=== PATIENT | female | born 1955 | race Caucasian/White ===

== ENCOUNTER 2019-12-24 08:26 | Emergency (ER) | payer OTHER, SELFPAY ==
[2019-12-24 08:42] VITALS: BP 123/74; PULSE 64; RESP 18; TEMP 36.4; O2SAT 99
--- NOTE | 2019-12-24 08:56 | ED.WEAKNESS ---
HPI - Weakness General Chief complaint: Weakness Stated complaint: Ambulance Source: patient Mode of arrival: EMS Limitations: no limitations History of Present Illness HPI Narrative: Pt has been feeling weaker over the last few days. She has been having 2 loose BM's per day. She has no nausea, no pain, no SOB or other complaints. MD Complaint: generalized weakness Duration: constant Location: generalized Migration: none Severity: mild Relieving factors: none Exacerbating factors: none Associated symptoms: denies other symptoms Related Data Home Medications Medication Instructions Recorded Confirmed aspirin 81 mg PO DAILY 12/24/19 12/24/19 hydrochlorothiazide 25 mg PO DAILY 12/24/19 12/24/19 pantoprazole 40 mg PO DAILY 12/24/19 12/24/19 sertraline 100 mg PO DAILY 12/24/19 12/24/19 simvastatin 20 mg PO DAILY 12/24/19 12/24/19 tramadol 50 mg PO DAILY 12/24/19 12/24/19 Allergies Allergy/AdvReac Type Severity Reaction Status Date / Time nitrofurantoin Allergy Unknown Verified 12/24/19 08:41 [From Macrodantin] Penicillins Allergy Unknown Verified 12/24/19 08:41 Review of Systems Constitutional: Constitutional: Reports chills, Denies fatigue, Denies fever(s) and Reports weakness Eyes: Eyes: Reports no additional eye complaints ENT: Reports system reviewed and no additional complaints, except as documented Cardiovascular: Cardiovascular: Reports no additional cardiovascular complaints Respiratory: Respiratory: Reports no additional respiratory complaints Gastrointestinal: Gastrointestinal: Reports no additional gastrointestinal complaints Musculoskeletal: Musculoskeletal: Reports no additional musculoskeletal complaints Integumentary/Breasts: Skin/Breast: Reports as per HPI Neurologic: Reports as per HPI Psychiatric: Psychiatric: Reports as per HPI Comments: pt does mention that she is a and worries alot Endocrine: Endocrine: Reports no additional endocrine complaints Hematologic/Lymphatic: Hematologic/Lymphatic: Reports no additional hematologic/lymphatic complaints Allergic/Immunologic: Allergic/Immunologic: Reports no additional allergic/immunologic complaints [facility] Past Medical History Medical History (Updated 12/24/19 @ 10:52 by Alecia Veloz MD) Depressed HTN (hypertension) Lipid disorder Surgical History Surgical History (Updated 12/24/19 @ 09:01 by Alecia Veloz MD) History of cholecystectomy Hx of eye surgery Social History Social History (Updated 12/24/19 @ 09:01 by Alecia Veloz MD) Alcohol intake: never Substance use: never Living arrangements: alone Exam Const: General: healthy appearing, no acute distress and alert Nutritional Appearance: well nourished and obese Orientation/consciousness: patient oriented x3 and No confusion Limitations: no limitations and No altered mental status HENMT: Head: normal to inspection Eyes: Conjunctivae: conjunctivae normal Pupils: Equal, round and reactive pupils present Neck: Neck: normal visual inspection Chest: Chest palpation & inspection: normal inspection of the chest Resp: Effort & Inspection: normal respiratory effort Auscultation: clear to auscultation bilaterally Cardio: Rate: regular rate Rhythm: regular rhythm GI: GI Palp: Yes Soft to palpation, No Tenderness to palpation present (GI), No Guarding due to palpation present (GI), No Rigid due to palpation and No Rebound tenderness present Percussion: Yes normal to percussion Auscultation: normal bowel sounds : General: Yes no CVA tenderness Back/Spine/Pelvis: Back: no CVA tenderness Skin: General skin exam: normal color Rashes: no rashes Neuro: General: patient oriented x3 Extrem: General: normal to inspection Psych: Appearance: grossly normal Mental Status: mental status grossly normal Thought content: Yes Normal thought content present Course Vital Signs Vital signs: Vital Signs Temperature 36.
[2019-12-24] MEDS: SODIUM CHLORIDE 0.9% IV 1,000 ML 999 ML IV CONT (09:10)
[2019-12-24 09:11] LABS: Basophils Absolute Auto 0.07 K/mm3 (0.00-0.10); Basophils Percent Auto 1.5 % (0.0-1.0); Eosinophils Absolute Auto 0.23 K/mm3 (0.02-0.50); Hematocrit 39.2 % (35.0-49.0); Hemoglobin 13.5 g/dL (12.0-15.0); Immature Granulocyte Absolute 0.01 K/mm3 (0.00-0.00); Immature Granulocyte Percent A 0.2 % (0.0-0.0); Lymphocytes Percent Auto 28.3 % (18.0-42.0); Mean Corpuscular HGB Conc 34.4 g/dL (32.0-36.0); Mean Corpuscular Hemoglobin 32.8 pg (27.0-31.0); Mean Corpuscular Volume 95.1 fL (78.0-102.0); Mean Platelet Volume 9.2 fl (9.2-11.8); Monocytes Absolute Auto 0.53 K/mm3 (0.10-0.90); Monocytes Percent Auto 11.5 % (2.0-11.0); Neutrophils Absolute Auto 2.5 K/mm3 (1.7-7.2); Neutrophils Percent Auto 53.5 % (50.0-70.0); Platelet Count Result 307 K/mm3 (150-420); Red Blood Count 4.12 M/mm3 (4.20-5.40); Red Cell Distribution Width 11.6 % (11.6-14.4); White Blood Count 4.6 K/mm3 (4.8-10.8)
[2019-12-24 09:15] VITALS: BP 130/76; PULSE 60
[2019-12-24 09:18] VITALS: BP 110/67
[2019-12-24 09:25] LABS: Alanine Aminotransferase 32 U/L (14-59); Albumin Level 4.4 g/dL (3.4-5.0); Alkaline Phosphatase 79 U/L (46-116); Anion Gap 9 mmol/L (8-16); Aspartate Amino Transferase 39 U/L (15-37); Blood Urea Nitrogen 9 mg/dL (7-18); Calcium 9.7 mg/dL (8.5-10.1); Carbon Dioxide 31 mmol/L (21-32); Chloride 95 mmol/L (98-108); Estimated CRCL calculation 45 ml/min; Estimated Glomerular Filt Rate 50; Glucose 115 mg/dL (70-99); Lipase 135 U/L (73-393); Osmolality Calculated 279 mOsm/kg (285-295); Potassium 2.9 mmol/L (3.5-5.1); Sodium 135 mmol/L (136-145); Total Protein 8.6 g/dL (6.4-8.2)
[2019-12-24] MEDS: POTASSIUM CHLORIDE 20 MEQ TABLET 40 MEQ PO (09:37)
--- NOTE | 2019-12-24 09:39 | ECG_ITS ---
Measurements Intervals [place] Rate: 52 P: 12 RI: 140 QRS: -12 QRSD: 96 T: 148 QT: 445 QTc: 417 Interpretive Statements SINUS BRADYCARDIA BORDERLINE ST-T WAVE ABNORMALITY- DIFFUSE LEADS BASELINE ARTIFACT- I, II, III, AVR, AVL, AVF, V1-V6 BORDERLINE ECG Electronically Signed On 12-25-2019 6:58:02 CDT by Baltazar Ball D.O.
[2019-12-24 09:52] LABS: Magnesium 1.6 mg/dL (1.8-2.4)
[2019-12-24 09:55] VITALS: BP 124/78; PULSE 60; RESP 20; O2SAT 98
[2019-12-24 10:17] LABS: Add Urine Microscopic? YES; Appearance Urine Clear (Clear); Bilirubin Urine 1+ (Negative); Blood Urine Negative (Negative); Color Urine Yellow (Yellow); Glucose Urine UA Negative (Negative); Ketones Urine Negative (Negative); Leukocyte Esterase Ur 2+ LEU/UL (Negative); Nitrate Urine Negative (Negative); Protein Urine Negative (Negative); Specific Grav Ur 1.015 (1.010-1.020); Urobilinogen Urine 0.2 mg/dL (0.2-1.0); pH Urine 5.5 (5.0-8.0)
[2019-12-24 10:21] LABS: RBC Urine 0-2 /hpf (0-2)
[2019-12-24 10:22] LABS: Bacteria Urine 3+ /hpf; Squamous Epithelial Cell Urine Few /hpf (Few)
[2019-12-24] MEDS: MAGNESIUM OXIDE 400 MG TABLET PO (10:30)
[2019-12-24 10:53] VITALS: BP 128/70; PULSE 60; RESP 18; TEMP 36.6; O2SAT 98
== END 2019-12-24 11:05 | disposition home or self-care (01) ==
PROVIDERS: Emergency Provider Emergency Medicine
DX: E87.6 Hypokalemia (principal); E83.42 Hypomagnesemia; N39.0 Urinary tract infection, site not specified
CPT/HCPCS: 36415; 80053; 81001; 83690; 83735; 85025; 87086; 87088; 93005; 96360; 99283; A9270; J7030

== ENCOUNTER 2019-12-25 09:48 | Observation (INO) | payer OTHER, SELFPAY ==
[2019-12-25] VITALS (10 sets, daily range): BP systolic 106–124; BP diastolic 68–81; PULSE 55–88; RESP 16–18; TEMP 36.4–36.9; O2SAT 96–100; BMI 32.0
--- NOTE | ~2019-12-25 | CT_ITS ---
EXAMINATION: CT chest abdomen pelvis w con DATE: 12/25/2019 14:43 INDICATION: Nausea, diarrhea, dysphagia TECHNIQUE: Transaxial computed tomographic images of the chest, abdomen, and pelvis were obtained aft er the administration of 100 cc of Omnipaque 350 intravenous contrast. The dose-length product (DLP) was 851.13 mGy-cm. Automated exposure control and iterative reconstruction technique were employed. COMPARISON: None FINDINGS: CHEST CT: There is a 3 mm nodule in the superior segment of the left lower lobe. The lungs are free of acute op acities. There is no pleural effusion or pneumothorax. There is a small sliding hiatal hernia. A smal l amount of hyperattenuating material is present in the hernia. No pathologically enlarged thoracic l ymph nodes are identified. The heart size is normal. Calcified coronary artery atherosclerosis is not ed. There is severe spondylosis at T1-2 and T2-3. ABDOMEN/PELVIS CT: The gallbladder is surgically absent. There is mild enlargement of the common bile duct and central i ntrahepatic ducts which is likely due to post cholecystectomy state. The liver, spleen, pancreas, and adrenal glands are normal. Hypoattenuating lesions in the kidneys, measuring up to 6 mm on the right , are too small to characterize but likely represent cysts. No pathologically enlarged abdominal or p elvic lymph nodes are identified. There is no free intraperitoneal gas or evidence of bowel obstructi on. There is severe lumbar spondylosis. IMPRESSION: 1. Small sliding hiatal hernia with internal hyperattenuating material of unclear origin, possibly in gested material/medication. 2. No acute abnormality of the chest, abdomen, or pelvis. 3. 3 mm nodule of the left lower lobe. If the patient has no risk factors for malignancy, no further follow up is required. If there are risk factors for malignancy (i.e., history of smoking, asbestos or radiation exposure), consider followup CT in 12 months. Reviewed, dictated and finalized at location A. IMPRESSION: 1. Small sliding hiatal hernia with internal hyperattenuating material of uncle ar origin, possibly ingested material/medication. 2. No acute abnormality of the chest, abdomen, or pelvis. 3. 3 mm nodule of the left lower lobe. If the patient has no risk factors for m alignancy, no further follow up is required. If there are risk factors for mal ignancy (i.e., history of smoking, asbestos or radiation exposure), consider fo llowup CT in 12 months.
--- NOTE | 2019-12-25 10:18 | ED.WEAKNESS ---
HPI - Weakness General Chief complaint: Weakness Stated complaint: low potassium Time Seen by Provider: 12/25/19 10:18 Source: patient Mode of arrival: wheelchair Limitations: no limitations History of Present Illness HPI Narrative: 64-year-old woman comes in today complaining of generalized weakness which has been present for last week. Patient states that during that time she has also had watery stools approximately twice a day. She states that her potassium was found to be low yesterday and she does not feel any better today. She states he has nausea but no vomiting, chest pain, shortness breath, cough, sore throat, fever, blood in her stool, black stools, or abdominal pain. She denies any sick contacts, has city water, and has had no recent antibiotics other than those prescribed yesterday. MD Complaint: generalized weakness Onset (ago): week(s) (1) Duration: constant Location: generalized Migration: none Severity: severe Relieving factors: none Exacerbating factors: none Associated symptoms: nausea/vomiting Related Data Home Medications Medication Instructions Recorded Confirmed aspirin 81 mg PO DAILY 12/24/19 12/25/19 hydrochlorothiazide 25 mg PO DAILY 12/24/19 12/25/19 pantoprazole 40 mg PO DAILY 12/24/19 12/25/19 sertraline 100 mg PO DAILY 12/24/19 12/25/19 simvastatin 20 mg PO DAILY 12/24/19 12/25/19 tramadol 50 mg PO DAILY 12/24/19 12/25/19 Allergies Allergy/AdvReac Type Severity Reaction Status Date / Time nitrofurantoin Allergy Unknown Verified 12/24/19 08:41 [From Macrodantin] Penicillins Allergy Unknown Verified 12/24/19 08:41 Review of Systems Constitutional: Constitutional: Denies chills, Reports fatigue, Denies fever(s) and Reports weakness Eyes: Eyes: Denies change in vision and Denies photophobia ENT: Denies dysphagia, Denies nasal congestion and Denies sore throat Cardiovascular: Cardiovascular: Denies chest pain and Denies radiating jaw, neck or arm pain Respiratory: Respiratory: Denies cough and Denies wheezing Gastrointestinal: Gastrointestinal: Reports as per HPI, Denies abdominal pain, Reports diarrhea, Reports nausea and Denies vomiting Genitourinary: Genitourinary: Denies hematuria, Denies nocturia and Denies dysuria Musculoskeletal: Musculoskeletal: Denies arthralgias and Denies joint swelling Integumentary/Breasts: Skin/Breast: Denies pruritus, Denies erythema and Denies rash Neurologic: Denies vertigo, Denies dizziness and Denies syncope Hematologic/Lymphatic: Hematologic/Lymphatic: Denies easy bleeding and Denies easy bruising Allergic/Immunologic: Allergic/Immunologic: Denies lip swelling and Denies wheezing PMFSH Past Medical History Medical History Depressed HTN (hypertension) Lipid disorder Surgical History Surgical History History of appendectomy History of cholecystectomy Hx of eye surgery S/p bilateral carpal tunnel release Social History Social History Smoking status: Never smoker Alcohol intake: never Substance use: never Living arrangements: alone Exam Const: General: alert and ill appearing acutely ( mildly) Nutritional Appearance: obese Orientation/consciousness: patient oriented x3 Other: Mild acute distress, laconic HENMT: Head: normal to inspection Ears: external ears normal, TM's normal bilaterally and EAC's normal General nose exam: Normal nares present Face and sinus: normal facial exam Mouth: Yes moist mucous membranes Throat: posterior oropharynx normal Eyes: Conjunctivae: conjunctivae normal Pupils: Equal, round and reactive pupils present EOM: EOMs intact bilaterally Resp: Effort & Inspection: normal respiratory effort and not labored Auscultation: clear to auscultation bilaterally, no rales, no rhonchi and no wheezes Cardio: Rate: regular
--- NOTE | 2019-12-25 10:21 | ECG_ITS ---
Measurements Intervals [place] Rate: 58 P: 73 [place]: 156 QRS: -10 QRSD: 101 T: 267 QT: 436 QTc: 430 Interpretive Statements SINUS BRADYCARDIA DELAYED PRECORDIAL R/S TRANSITION BORDERLINE ST-T WAVE ABNORMALITY- DIFFUSE LEADS BORDERLINE ECG Electronically Signed On 12-25-2019 11:08:00 CDT by Baltazar Ball D.O.
--- NOTE | 2019-12-25 10:43 | PC.NURSE ---
Report given to Karmen Henriquez
[2019-12-25 10:51] LABS: Alanine Aminotransferase 28 U/L (14-59); Alkaline Phosphatase 69 U/L (46-116); Anion Gap 6 mmol/L (8-16); Aspartate Amino Transferase 35 U/L (15-37); Bilirubin,Total 0.7 mg/dL (0.00-1.00); Blood Urea Nitrogen 8 mg/dL (7-18); Calcium 9.1 mg/dL (8.5-10.1); Carbon Dioxide 30 mmol/L (21-32); Chloride 98 mmol/L (98-108); Estimated CRCL calculation 50 ml/min; Estimated Glomerular Filt Rate 58; Glucose 120 mg/dL (70-99); Osmolality Calculated 277 mOsm/kg (285-295); Potassium 3.1 mmol/L (3.5-5.1); Sodium 134 mmol/L (136-145); Total Protein 7.4 g/dL (6.4-8.2)
[2019-12-25 10:52] LABS: Magnesium 1.7 mg/dL (1.8-2.4); Phosphorus 2.2 mg/dL (2.6-4.7)
[2019-12-25 11:08] LABS: Creatine Kinase 400 U/L (26-192); Lactate Dehydrogenase 190 U/L (81-234); Troponin I < 0.02 ng/mL (0.00-0.056)
[2019-12-25] MEDS: SODIUM CHLORIDE 0.9% IV 1,000 ML 100 ML IV CONT (12:31)
[2019-12-25] MEDS: KCL 20 MEQ/SW 100 ML 100 ML 50 MEQ IVPB ×2 (12:31→16:30)
--- NOTE | 2019-12-25 13:00 | PM.IMHP ---
H&P: HPI History of Present Illness Date/Time: 12/25/19 13:00 Chief complaint: hypokalemia weakness Narrative: Eloise Martinez is a 64 year old female that presented to our ED today complaining of diarrhea and fatigue. Patient has a past medical history of hypertension, lipid disorder, depression. Patient also presented to the ED yesterday with complaints of weakness and 2 loose bowel movements. Patient also noted that she felt like her pills were stuck in her throat .she was also diagnosed with a urinary tract infection, hypokalemia, hypomagnesia. Patient was discharged home with potassium 20 mEq, magnesium 400 mg twice daily and Bactrim every 12 hours for 3 days. Patient returned today with complaints of weakness and diarrhea. Patient notes that for the last 2 days she has had multiple liquid stools with fatigue she also complains of a slight headache. Today in the ED patient potassium was 3.1 sodium 134 BUN 8, creatinine 0.97, glucose 120, magnesium 1.7, patient EKG sinus bradycardia with a heart rate of 58. Patient being admitted for, diarrhea, hypokalemia and hypomagnesia .The patient denies SOB, CP, palpitation, extremity numbness, lightheadedness, dizziness, constipation, chills, or fever. Review of Systems Review of Systems: All systems reviewed & are unremarkable except as noted in HPI and below (10 point system review) [facility] Past Medical History Medical History Depressed HTN (hypertension) Lipid disorder Surgical History Surgical History History of appendectomy History of cholecystectomy Hx of eye surgery S/p bilateral carpal tunnel release Social History Social History Smoking status: Never smoker Alcohol intake: never Substance use: never Living arrangements: alone Spiritual care concerns: No Meds Home Medications and Allergies Home Medications Medication Instructions Recorded Confirmed Type aspirin 81 mg PO DAILY 12/24/19 12/25/19 History hydrochlorothiazide 25 mg PO DAILY 12/24/19 12/25/19 History magnesium oxide 400 mg PO BID #10 tablet 12/24/19 12/25/19 Rx pantoprazole 40 mg PO DAILY 12/24/19 12/25/19 History potassium chloride 40 meq PO BID #10 tablet 12/24/19 12/25/19 Rx sertraline 100 mg PO DAILY 12/24/19 12/25/19 History simvastatin 20 mg PO DAILY 12/24/19 12/25/19 History sulfamethoxazole-trimethoprim 1 tablet PO Q12H #7 tablet 12/24/19 12/25/19 Rx [Bactrim DS] tramadol 50 mg PO DAILY 12/24/19 12/25/19 History Allergies Allergy/AdvReac Type Severity Reaction Status Date / Time nitrofurantoin Allergy Unknown Verified 12/24/19 08:41 [From Macrodantin] Penicillins Allergy Unknown Verified 12/24/19 08:41 Vital Signs Vital Signs - 24 hr 12/25/19 10:05 12/25/19 10:30 12/25/19 11:15 Temperature 97.9 F Pulse Rate 66 60 88 Respiratory Rate 18 Blood Pressure 115/69 114/81 Pulse Oximetry 96 97 12/25/19 11:44 Temperature 97.5 F L Pulse Rate 64 Respiratory Rate 16 Blood Pressure 106/71 Pulse Oximetry 100 Exam Narrative: Exam Narrative: GENERAL: Fatigued, in no apparent distress. HEAD: normocephalic, atraumatic. EYES: PERRL. Sclera clear/white. Vision is grossly intact. EARS: External ears normal, auditory canals clear and without drainage, TMs normal without perforation. Hearing grossly intact. NOSE: External nose normal with no obvious nasal discharge, nares without redness, no rhinorrhea. THROAT: Mucous membranes moist, posterior pharynx clear. NECK: Neck supple, non-tender without lymphadenopathy, masses or thyromegaly. CARDIOVASCULAR: Regular rate and rhythm without murmurs, gallops, or rubs. RESPIRATORY: Clear to auscultation. Breath sounds equal bilaterally. No wheezes, rales, or rhonchi. GASTROINTESTINAL: Abdomen soft, non-tender, nondistended. Bowel sounds are active. No hepato-spl
[2019-12-25] MEDS: MAGNESIUM OXIDE 400 MG TABLET PO (18:11)
[2019-12-25 19:19] LABS: Anion Gap 10 mmol/L (8-16); Blood Urea Nitrogen 7 mg/dL (7-18); Calcium 8.9 mg/dL (8.5-10.1); Carbon Dioxide 26 mmol/L (21-32); Chloride 97 mmol/L (98-108); Estimated CRCL calculation 47 ml/min; Estimated Glomerular Filt Rate 53; Glucose 100 mg/dL (70-99); Osmolality Calculated 274 mOsm/kg (285-295); Potassium 3.7 mmol/L (3.5-5.1); Sodium 133 mmol/L (136-145)
[2019-12-25] MEDS: POTASSIUM CHLORIDE 20 MEQ PACKET (FOR LIQUID) 40 MEQ PO (20:26)
[2019-12-26] VITALS (7 sets, daily range): BP systolic 110–115; BP diastolic 49–72; PULSE 56–84; RESP 18; TEMP 36.5–37.1; O2SAT 95–98
--- NOTE | 2019-12-26 00:30 | PC.NURSE ---
Iraida Limon RN informed slightly prolonged QT on Telemetry.
--- NOTE | 2019-12-26 01:00 | PC.NURSE ---
IV fluids Discontinued. IV site without signs of infection/inflammation. Denies pain or discomfort. No nausea. Requests door kept closed. Explained need to check on patient if she needs help. Door left closed per patient request.
--- NOTE | 2019-12-26 03:55 | PC.NURSE ---
States she feels unsteady at times and would like to continue to have nurse assist to ambulate. Ambulated to bathroom with steady gait and returned to bed. No loss of balance or weakness noted.
[2019-12-26 06:01] LABS: Basophils Absolute Auto 0.04 K/mm3 (0.00-0.10); Basophils Percent Auto 0.6 % (0.0-1.0); Eosinophils Absolute Auto 0.08 K/mm3 (0.02-0.50); Eosinophils Percent Auto 1.3 % (1.0-6.0); Hematocrit 35.3 % (35.0-49.0); Hemoglobin 11.9 g/dL (12.0-15.0); Immature Granulocyte Absolute 0.02 K/mm3 (0.00-0.00); Immature Granulocyte Percent A 0.3 % (0.0-0.0); Lymphocytes Absolute Auto 1.34 K/mm3 (1.10-4.50); Lymphocytes Percent Auto 21.3 % (18.0-42.0); Mean Corpuscular HGB Conc 33.7 g/dL (32.0-36.0); Mean Corpuscular Hemoglobin 32.2 pg (27.0-31.0); Mean Corpuscular Volume 95.4 fL (78.0-102.0); Mean Platelet Volume 8.8 fl (9.2-11.8); Monocytes Percent Auto 11.1 % (2.0-11.0); Neutrophils Absolute Auto 4.1 K/mm3 (1.7-7.2); Neutrophils Percent Auto 65.4 % (50.0-70.0); Platelet Count Result 254 K/mm3 (150-420); White Blood Count 6.3 K/mm3 (4.8-10.8)
[2019-12-26 06:18] LABS: Alanine Aminotransferase 25 U/L (14-59); Albumin Level 3.5 g/dL (3.4-5.0); Alkaline Phosphatase 62 U/L (46-116); Anion Gap 9 mmol/L (8-16); Aspartate Amino Transferase 31 U/L (15-37); Bilirubin,Total 0.6 mg/dL (0.00-1.00); Blood Urea Nitrogen 5 mg/dL (7-18); Calcium 8.9 mg/dL (8.5-10.1); Carbon Dioxide 25 mmol/L (21-32); Chloride 101 mmol/L (98-108); Estimated CRCL calculation 49 ml/min; Estimated Glomerular Filt Rate 55; Glucose 95 mg/dL (70-99); Magnesium 1.9 mg/dL (1.8-2.4); Osmolality Calculated 277 mOsm/kg (285-295); Potassium 3.7 mmol/L (3.5-5.1); Sodium 135 mmol/L (136-145); Total Protein 7.4 g/dL (6.4-8.2)
--- NOTE | 2019-12-26 07:40 | PC.NURSE ---
Not feeling well this am, very nauseated, no chest pain, no emesis at this time, potassium this am noted to be 3.7
--- NOTE | 2019-12-26 08:00 | PC.NURSE ---
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
[2019-12-26] MEDS: ONDANSETRON INJ 4 MG/2 ML VIAL IV PUSH (08:31)
--- NOTE | 2019-12-26 08:35 | PC.NURSE ---
zofran given for nausea
--- NOTE | 2019-12-26 09:00 | PC.NURSE ---
Nausea is less, would like to wait to take meds until later
--- NOTE | 2019-12-26 09:21 | PM.DS ---
DS: Admitting Diagnosis Admitting Diagnosis Admitting Diagnosis: hypokalemia weakness DS: Discharge Diagnosis Discharge Diagnosis (1) Weakness: Code(s): R53.1 - Weakness Status: Acute Assessment and Plan: Possibly secondary to diarrhea Will consult PT OT before discharge (2) UTI (urinary tract infection): Code(s): N39.0 - Urinary tract infection, site not specified Status: Acute Assessment and Plan: Yesterday patient with leukocytes and bacteria in urine Patient prescribed Bactrim twice daily for 3 days. She will continue Bactrim and patient has no growth on culture DS: Summary Time Spent with Patient Time attestation: Total time spent providing and/or coordinating discharge services: Exam Narrative: Exam Narrative: GENERAL: Fatigued, in no apparent distress. HEAD: normocephalic, atraumatic. EYES: PERRL. Sclera clear/white. Vision is grossly intact. EARS: External ears normal, auditory canals clear and without drainage, TMs normal without perforation. Hearing grossly intact. NOSE: External nose normal with no obvious nasal discharge, nares without redness, no rhinorrhea. THROAT: Mucous membranes moist, posterior pharynx clear. NECK: Neck supple, non-tender without lymphadenopathy, masses or thyromegaly. CARDIOVASCULAR: Regular rate and rhythm without murmurs, gallops, or rubs. RESPIRATORY: Clear to auscultation. Breath sounds equal bilaterally. No wheezes, rales, or rhonchi. GASTROINTESTINAL: Abdomen soft, non-tender, nondistended. Bowel sounds are active. No hepato-splenomegaly, or palpable masses. No guarding. SKIN: warm, intact with no suspicious lesions or rash, good texture and turgor. NEURO: awake, alert, and oriented to person, place and time. There were no obvious focal neurologic abnormalities. Steady gait EXTREMITIES: Normal range of motion. No edema. No calf tenderness. Negative Homans sign bilaterally. BACK: Nontender without deformity or crepitance. No flank tenderness. DS: Data Data Completed and Pending Labs on day of discharge: Labs from last 24 hours 12/26/19 12/26/19 12/25/19 05:55 05:55 19:05 WBC 6.3 RBC 3.70 L Hgb 11.9 L Hct 35.3 MCV 95.4 MCH 32.2 H MCHC 33.7 RDW 12.0 Plt Count 254 MPV 8.8 L Immature Gran % (Auto) 0.3 H Neut % (Auto) 65.4 Lymph % (Auto) 21.3 [place] % (Auto) 11.1 H Eos % (Auto) 1.3 Baso % (Auto) 0.6 Lymph # (Auto) 1.34 [place] # (Auto) 0.70 Eos # (Auto) 0.08 Baso # (Auto) 0.04 Abs Immat Gran (auto) 0.02 H Absolute Neuts (auto) 4.1 Absolute Nucleated RBC 0.00 Nucleated RBC % 0.0 Sodium 135 L 133 L Potassium 3.7 3.7 Chloride 101 97 L Carbon Dioxide 25 26 Anion Gap 9 10 BUN 5 L 7 Creatinine 1.01 1.04 H Estim Creat Clear Calc 49 47 Estimated GFR 55 L 53 L Glucose 95 100 H Calculated Osmolality 277 L 274 L Calcium 8.9 8.9 Phosphorus Magnesium 1.9 Total Bilirubin 0.6 AST 31 ALT 25 Alkaline Phosphatase 62 Lactate Dehydrogenase Total Creatine Kinase Troponin I Total Protein 7.4 Albumin 3.5 12/25/19 12/25/19 12/25/19 10:30 10:30 10:30 WBC RBC Hgb Hct MCV MCH MCHC RDW Plt Count MPV Immature Gran % (Auto) Neut % (Auto) Lymph % (Auto) [place] % (Auto) Eos % (Auto) Baso % (Auto) Lymph # (Auto) [place] # (Auto) Eos # (Auto) Baso # (Auto) Abs Immat Gran (auto) Absolute Neuts (auto) Absolute Nucleated RBC Nucleated RBC % Sodium 134 L Potassium 3.1 L Chloride 98 Carbon Dioxide 30 Anion Gap 6 L BUN 8 Creatinine 0.97 Estim Creat Clear Calc 50 Estimated GFR 58 L Glucose 120 H Calculated Osmolality 277 L Calcium 9.1 Phosphorus 2.2 L Magnesium 1.7 L Total Bilirubin 0.7 AST 35 ALT 28 Alkaline Phosphatase 69 Lactate Dehydrogenase 190 Total Creati
[2019-12-26] MEDS: SIMVASTATIN 10 MG TABLET 20 MG PO (09:37)
[2019-12-26] MEDS: hydroCHLOROthiazide 25 MG TABLET PO (09:37)
[2019-12-26] MEDS: POTASSIUM CHLORIDE 20 MEQ PACKET (FOR LIQUID) 40 MEQ PO (09:37)
[2019-12-26] MEDS: SERTRALINE HCL 50 MG TABLET 100 MG PO (09:37)
[2019-12-26] MEDS: MAGNESIUM OXIDE 400 MG TABLET PO (09:37)
[2019-12-26] MEDS: PANTOPRAZOLE 40 MG TABLET PO (09:37)
[2019-12-26] MEDS: traMADol HCL (*CRX) 50 MG TABLET PO (09:38)
[2019-12-26] MEDS: ASPIRIN 81 MG ENTERIC TABLET PO (09:38)
--- NOTE | 2019-12-26 09:53 | PC.NURSE ---
Medications to room, eggs warmed up, not sure if she can take them or eat, just nauseated, no emesis no diarrhea
--- NOTE | 2019-12-26 12:07 | PC.NURSE ---
Attempting to eat lunch, sitting up in bed, states wants to go home but just doesn't know, states she feels still bad today, no vomiting, no diarrhea
--- NOTE | 2019-12-26 13:54 | PC.NURSE ---
resin filterer disconnected, feeling better, nausea improved after eating lunch, no diarrhea, ride is here, patient getting dressed
--- NOTE | 2019-12-26 14:20 | PC.NURSE ---
Discharge instructions reviewed with patient, no questions at t his time, personal items returned to patient, discharge via wheel chair to home
--- NOTE | 2019-12-27 12:56 | PC.NURSE ---
Discharge call back complete. Pt has no questions or concerns.
== END 2019-12-26 14:20 | disposition home or self-care (01) ==
LOC: CHSED 11:15 → CHS2ND 11:15
PROVIDERS: Admitting Provider Emergency Medicine; Emergency Provider Emergency Medicine; Visit Provider Emergency Medicine
DX: E87.6 Hypokalemia (principal); N39.0 Urinary tract infection, site not specified; E83.42 Hypomagnesemia; R13.10 Dysphagia, unspecified; I10 Essential (primary) hypertension; F32.9 Major depressive disorder, single episode, unspecified; R91.1 Solitary pulmonary nodule
CPT/HCPCS: 36415; 71260; 74177; 80048; 80053; 82550; 83615; 83735; 84100; 84484; 85025; 93005; 96361; 96365; 96366; 96367; 96374; 97161; 97165; 99284; 99285; A9270; G0378; J1956; J2405; J3480; J7030; Q9965

== ENCOUNTER 2020-02-19 11:45 | Inpatient (IN) | payer OTHER, SELFPAY ==
--- NOTE | ~2020-02-19 | CT_ITS ---
EXAMINATION: CT abdomen pelvis w con DATE: 02/19/2020 14:21 INDICATION: Generalized abdominal pain TECHNIQUE: Computed tomography (CT) of the abdomen and pelvis was performed with 100 cc Omnipaque 350 intravenous contrast. Automated exposure control and iterative reconstruction technique were employe d. Exam dose: 478.26 mGy-cm total exam DLP. COMPARISON: 12/25/2019 CT chest abdomen pelvis FINDINGS: Examination is limited due to prominent motion. The lung bases are clear of consolidation. Heart size appears within normal limits. No pericardial or pleural effusion. Small sliding hiatal hernia. Status post cholecystectomy. The hepatic dome is not completely included in this examination. No obvious hepatic, splenic, pancrea tic or adrenal or renal mass lesion is evident on this limited examination with motion. No hydroureteronephrosis. The urinary bladder is unremarkable. Uterus and adnexal areas are unremarka ble. Normal caliber and atherosclerotic calcification of the abdominal aorta. No evidence of abdominal aor tic aneurysm or dissection. No intraperitoneal or retroperitoneal or pelvic mass lesion or adenopathy or ascites is evident. No bowel obstruction or intraperitoneal free air is detected. There is severe degenerative disc disease of the lumbar and lumbosacral spine, relatively sparing onl y L4-5. No suspicious osteolytic or osteoblastic lesions are noted. IMPRESSION: Limited examination due to prominent motion Small sliding hiatal hernia Status post cholecystectomy Reviewed, dictated and finalized at [facility] Reviewed, dictated and finalized at [facility]. 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
[2020-02-19 12:10] VITALS: BP 133/68; PULSE 76; RESP 12; TEMP 36.7; O2SAT 97
--- NOTE | 2020-02-19 12:25 | ECG_ITS ---
Measurements Intervals [place] Rate: 77 P: 3 [place]: 134 QRS: -17 QRSD: 102 T: 171 QT: 402 QTc: 456 Interpretive Statements SINUS RHYTHM VENTRICULAR BIGEMINY DELAYED PRECORDIAL R/S TRANSITION INFERIOR INFARCT, AGE INDETERMINATE BORDERLINE ST-T WAVE ABNORMALITY- ANTEROLAT/HIGH LAT LEADS BASELINE WANDER- I, II, III, AVR, AVL, AVF, V1-V6 ABNORMAL ECG Electronically Signed On 02-19-2020 13:07:12 APPLICATION ARCHITECT by Baltazar Ball D.O.
[2020-02-19 12:57] LABS: Basophils Absolute Auto 0.07 K/mm3 (0.00-0.10); Basophils Percent Auto 1.3 % (0.0-1.0); Eosinophils Absolute Auto 0.08 K/mm3 (0.02-0.50); Eosinophils Percent Auto 1.5 % (1.0-6.0); Hematocrit 40.9 % (35.0-49.0); Hemoglobin 13.8 g/dL (12.0-15.0); Immature Granulocyte Absolute 0.01 K/mm3 (0.00-0.00); Immature Granulocyte Percent A 0.2 % (0.0-0.0); Lymphocytes Absolute Auto 1.18 K/mm3 (1.10-4.50); Lymphocytes Percent Auto 22.2 % (18.0-42.0); Mean Corpuscular HGB Conc 33.7 g/dL (32.0-36.0); Mean Corpuscular Hemoglobin 32.4 pg (27.0-31.0); Mean Platelet Volume 10.9 fl (9.2-11.8); Monocytes Absolute Auto 0.48 K/mm3 (0.10-0.90); Neutrophils Absolute Auto 3.5 K/mm3 (1.7-7.2); Neutrophils Percent Auto 65.8 % (50.0-70.0); Platelet Count Result 244 K/mm3 (150-420); Red Blood Count 4.26 M/mm3 (4.20-5.40); Red Cell Distribution Width 13.3 % (11.6-14.4); White Blood Count 5.3 K/mm3 (4.8-10.8)
[2020-02-19] MEDS: ONDANSETRON INJ 4 MG/2 ML VIAL IV PUSH ×2 (13:11→18:50)
[2020-02-19] MEDS: SODIUM CHLORIDE 0.9% IV 1,000 ML 500 ML IV CONT (13:11)
[2020-02-19] MEDS: DICYCLOMINE HCL 10 MG CAPSULE 20 MG PO (13:20)
[2020-02-19 13:21] LABS: BNP 132 pg/mL (0-100)
[2020-02-19 13:27] LABS: Alanine Aminotransferase 28 U/L (14-59); Albumin Level 3.5 g/dL (3.4-5.0); Alkaline Phosphatase 59 U/L (46-116); Aspartate Amino Transferase 41 U/L (15-37); Bilirubin,Total 1.2 mg/dL (0.00-1.00); Blood Urea Nitrogen 10 mg/dL (7-18); Calcium 9.2 mg/dL (8.5-10.1); Carbon Dioxide 25 mmol/L (21-32); Estimated CRCL calculation 49 ml/min; Estimated Glomerular Filt Rate > 60; Glucose 109 mg/dL (70-99); Magnesium 1.8 mg/dL (1.8-2.4); Total Protein 7.2 g/dL (6.4-8.2)
[2020-02-19 13:39] LABS: Troponin I 13.1 ng/L (0.00-60.4)
[2020-02-19 13:42] LABS: Anion Gap 17 mmol/L (8-16); Chloride 98 mmol/L (98-108); Osmolality Calculated 290 mOsm/kg (285-295); Sodium 140 mmol/L (136-145)
[2020-02-19 13:43] LABS: Potassium 1.9 mmol/L (3.5-5.1)
[2020-02-19] MEDS: KCL 40 MEQ/0.9% SOD CHL 1,000 ML 250 ML IV CONT (14:20)
--- NOTE | 2020-02-19 14:21 | PC.NURSE ---
Rapid Response called by machines technician during CT scan. Tech states patient become unresponsive and had seizure like activity. When RN arrived to CT department, pt was alert but disoriented.
--- NOTE | 2020-02-19 14:25 | ECG_ITS ---
Measurements Intervals [place] Rate: 67 P: -16 MD: 144 QRS: -28 QRSD: 106 T: 186 QT: 431 QTc: 456 Interpretive Statements SINUS RHYTHM FREQUENT VENTRICULAR PREMATURE COMPLEXES DELAYED PRECORDIAL R/S TRANSITION INFERIOR INFARCT, AGE INDETERMINATE ST-T WAVE ABNORMALITY IN ANTEROLAT/HIGH LAT LEADS- CONSIDER ISCHEMIA BASELINE ARTIFACT- I, II, III, AVR, AVL, AVF, V1, V3-V6 ABNORMAL ECG Electronically Signed On 02-19-2020 14:30:20 FISH WORM GROWER by Baltazar Ball D.O.
--- NOTE | 2020-02-19 14:34 | PC.NURSE ---
ERP GAVE RN VERBAL ORDER TO INFUSE 40MEQ KCL IN 1000 ML NS AT AN INCREASED RATE OF 250 ML/HR.
--- NOTE | 2020-02-19 15:01 | PC.NURSE ---
PT WAS UNABLE TO TAKE PO POTASSIUM DUE TO VOMITING. ERP INFORMED.
--- NOTE | 2020-02-19 15:02 | PC.NURSE ---
RN REQUESTED INPATIENT ROOM WITH TELEMETRY FROM TRENTON BUSCH RN. ROOM 226 PROVIDED. REGISTRATION NOTIFIED.
--- NOTE | 2020-02-19 15:31 | PC.NURSE ---
TELEPHONE REPORT PROVIDED TO BARON FLEMING. PT TRANSFERRED TO ROOM 226 IN ST[facility]CH[facility] WITH ALL BELONGINGS BY CONRADO DAWN.
[2020-02-19 15:33] VITALS: BP 90/55; PULSE 69; RESP 12; O2SAT 98
[2020-02-19 15:53] VITALS: BP 108/58; PULSE 65; RESP 18; TEMP 36.1; O2SAT 99
[2020-02-19 16:13] VITALS: BMI 28.8
--- NOTE | 2020-02-19 17:06 | ED.ABDPAIN ---
HPI - Abdominal Pain General Chief Complaint: Nausea/Vomiting/Diarrhea Stated Complaint: Diarrhea,Nausea, Time Seen by Provider: 02/19/20 14:20 Source: patient and family Mode of arrival: ambulatory Limitations: other (fatigue, malaise, nausea) History of Present Illness HPI narrative: Mrs Martinez says she has been nauseated for the past several days. She has also had several loose stools. She did not realize she should stop her diuretic when she had diarrhea. She has been getting pretty weak. Related Data Home Medications Medication Instructions Recorded Confirmed aspirin 81 mg PO DAILY 12/24/19 02/19/20 hydrochlorothiazide 25 mg PO DAILY 12/24/19 02/19/20 pantoprazole 40 mg PO DAILY 12/24/19 02/19/20 sertraline 100 mg PO DAILY 12/24/19 02/19/20 simvastatin 20 mg PO DAILY 12/24/19 02/19/20 tramadol 50 mg PO DAILY 12/24/19 02/19/20 Allergies Allergy/AdvReac Type Severity Reaction Status Date / Time nitrofurantoin Allergy Unknown Verified 12/24/19 08:41 [From Macrodantin] Penicillins Allergy Unknown Verified 12/24/19 08:41 Review of Systems Constitutional: Constitutional: Reports fatigue and Reports weakness Eyes: Eyes: Reports no additional eye complaints ENT: Reports system reviewed and no additional complaints, except as documented Cardiovascular: Cardiovascular: Reports no additional cardiovascular complaints Respiratory: Respiratory: Reports no additional respiratory complaints Gastrointestinal: Gastrointestinal: Reports no additional gastrointestinal complaints Genitourinary: Genitourinary: Reports no additional female genitourinary complaints Musculoskeletal: Musculoskeletal: Reports no additional musculoskeletal complaints Integumentary/Breasts: Skin/Breast: Reports system reviewed and no additional complaints, except as docu Neurologic: Comments: near syncope at home Psychiatric: Psychiatric: Reports no additional psychiatric complaints Endocrine: Endocrine: Reports no additional endocrine complaints Hematologic/Lymphatic: Hematologic/Lymphatic: Reports no additional hematologic/lymphatic complaints Allergic/Immunologic: Allergic/Immunologic: Reports no additional allergic/immunologic complaints [facility] Past Medical History Medical History Depressed HTN (hypertension) Lipid disorder Surgical History Surgical History History of appendectomy History of cholecystectomy Hx of eye surgery S/p bilateral carpal tunnel release Family History Family History Father Muscular dystrophy Mother Leukemia Sibling Breast cancer Sibling Malignant neoplasm of prostate Social History Social History Smoking status: Never smoker Alcohol intake: former Substance use: never Gender identity (if verbalized by the patient): Female Spiritual care concerns: No Exam Narrative: Exam Narrative: Appears acutely ill Const: General: no acute distress HENMT: Head: normal to inspection Eyes: Conjunctivae: conjunctivae normal Neck: Neck: normal visual inspection Chest: Chest palpation & inspection: normal inspection of the chest Resp: Effort & Inspection: normal respiratory effort Auscultation: clear to auscultation bilaterally Cardio: Rate: regular rate Rhythm: regular rhythm GI: GI Palp: Yes Soft to palpation Auscultation: Hyperactive bowel sounds present Skin: General skin exam: normal color Neuro: General: patient oriented x3 Extrem: General: normal to inspection Psych: Appearance: grossly normal Mental Status: mental status grossly normal Thought content: Yes Normal thought content present Course Course Emergency Course: Labs and CT were reviewed with patient. We decided to admit her her to stabilize her potassium. Vital Signs Vital signs: Vital Signs T
[2020-02-19] MEDS: POTASSIUM CHLORIDE 20 MEQ PACKET (FOR LIQUID) (17:37)
[2020-02-19 20:25] VITALS: PULSE 58
[2020-02-19 20:30] VITALS: BP 104/62; PULSE 62; RESP 18; TEMP 35.9; O2SAT 97
[2020-02-19] MEDS: PANTOPRAZOLE SODIUM IV 40 MG VIAL IV PUSH (20:32)
[2020-02-19] MEDS: POTASSIUM CHLORIDE 20 MEQ TABLET 40 MEQ PO (21:21)
[2020-02-20] VITALS (7 sets, daily range): BP systolic 88–103; BP diastolic 41–60; PULSE 59–68; RESP 18–20; TEMP 36.3–37.1; O2SAT 97–100
[2020-02-20] MEDS: SODIUM CHLORIDE 0.9% IV 1,000 ML 150 ML IV CONT (01:54)
[2020-02-20] MEDS: POTASSIUM CHLORIDE 20 MEQ TABLET 40 MEQ PO ×2 (01:55→05:45)
[2020-02-20 02:17] LABS: Add Urine Microscopic? YES; Appearance Urine Clear (Clear); Bilirubin Urine 2+ (Negative); Blood Urine Negative (Negative); Color Urine Yellow (Yellow); Glucose Urine UA Negative (Negative); Ketones Urine 1+ (Negative); Leukocyte Esterase Ur Negative (Negative); Nitrate Urine Negative (Negative); Protein Urine Negative (Negative); Urobilinogen Urine 0.2 mg/dL (0.2-1.0); pH Urine 6.5 (5.0-8.0)
[2020-02-20 02:23] LABS: Bacteria Urine None seen /hpf; RBC Urine 0-2 /hpf (0-2); Squamous Epithelial Cell Urine None seen /hpf (Few); WBC Urine 0-3 /hpf (0-3)
[2020-02-20] MEDS: ONDANSETRON INJ 4 MG/2 ML VIAL IV PUSH ×3 (05:44→16:00)
--- NOTE | 2020-02-20 05:45 | PC.NURSE ---
Patient given zofran per order due to reports of nausea.
[2020-02-20 08:59] LABS: Anion Gap 18 mmol/L (8-16); Blood Urea Nitrogen 7 mg/dL (7-18); Calcium 8.8 mg/dL (8.5-10.1); Carbon Dioxide 21 mmol/L (21-32); Chloride 106 mmol/L (98-108); Estimated CRCL calculation 48 ml/min; Estimated Glomerular Filt Rate 58; Glucose 77 mg/dL (70-99); Magnesium 1.9 mg/dL (1.8-2.4); Osmolality Calculated 297 mOsm/kg (285-295); Potassium 3.3 mmol/L (3.5-5.1); Sodium 145 mmol/L (136-145)
--- NOTE | 2020-02-20 08:59 | PM.IMHP ---
H&P: HPI History of Present Illness Date/Time: 02/20/20 08:59 <OREN Peralta - Last Filed: 02/20/20 13:44> Chief complaint: hypokalemia <OREN Peralta - Last Filed: 02/20/20 13:44> Narrative: Eloise Martinez is a 64 year old female who comes into the hospital after having nausea vomiting and diarrhea for a few days. She denies any recent antibiotic use. Patient admits that she is very weak and that she does not feel well. She admits to getting lightheaded and dizzy once in a while. Currently she is only nauseated without vomiting but still has her loose stools. <OREN Peralta - Last Filed: 02/20/20 13:44> Review of Systems Constitutional: Constitutional: Reports no additional constitutional complaints, Denies fever(s) and Reports weakness <OREN Peralta - Last Filed: 02/20/20 13:44> Cardiovascular: Cardiovascular: Reports no additional cardiovascular complaints, Denies chest pain, Denies chest pain at rest and Denies chest pain with activity <OREN Peralta - Last Filed: 02/20/20 13:44> Respiratory: Respiratory: Reports no additional respiratory complaints, Denies dyspnea and Denies dyspnea on exertion <OREN Peralta - Last Filed: 02/20/20 13:44> Gastrointestinal: Gastrointestinal: Reports diarrhea, Reports nausea and Denies vomiting <OREN Peralta - Last Filed: 02/20/20 13:44> Musculoskeletal: Musculoskeletal: Reports muscle weakness <OREN Peralta - Last Filed: 02/20/20 13:44> Neurologic: Reports system reviewed and no additional complaints, except as documented, Denies confusion, Denies vertigo, Reports dizziness (On occasion) and Denies numbness <OREN Peralta - Last Filed: 02/20/20 13:44> PMFSH Past Medical History Medical History: Medical History (Updated 02/20/20 @ 13:39 by OREN Peralta) Depressed HTN (hypertension) Lipid disorder <OREN Peralta - Last Filed: 02/20/20 13:44> Surgical History Surgical History: Surgical History History of appendectomy History of cholecystectomy Hx of eye surgery S/p bilateral carpal tunnel release <OREN Peralta - Last Filed: 02/20/20 13:44> Family History Family History: Family History Father Muscular dystrophy Mother Leukemia Sibling Breast cancer Sibling Malignant neoplasm of prostate <OREN Peralta - Last Filed: 02/20/20 13:44> Social History Social History: Social History Smoking status: Never smoker Alcohol intake: former Substance use: never Gender identity (if verbalized by the patient): Female Spiritual care concerns: No <OREN Peralta - Last Filed: 02/20/20 13:44> Meds Home Medications and Allergies Home medications: Home Medications Medication Instructions Recorded Confirmed Type aspirin 81 mg PO DAILY 12/24/19 02/19/20 History hydrochlorothiazide 25 mg PO DAILY 12/24/19 02/19/20 History pantoprazole 40 mg PO DAILY 12/24/19 02/19/20 History sertraline 100 mg PO DAILY 12/24/19 02/19/20 History simvastatin 20 mg PO DAILY 12/24/19 02/19/20 History tramadol 50 mg PO DAILY 12/24/19 02/19/20 History ondansetron HCl [Zofran] 4 mg PO Q8H PRN #30 tablet 12/26/19 02/19/20 Rx <OREN Peralta - Last Filed: 02/20/20 13:44> Allergies/Adverse reactions: Allergies Allergy/AdvReac Type Severity Reaction Status Date / Time nitrofurantoin Allergy Unknown Verified 12/24/19 08:41 [From Macrodantin] Penicillins Allergy Unknown Verified 12/24/19 08:41 <OREN Peralta - Last Filed: 02/20/20 13:44> Vital Signs Vital Signs - 24 hr 02/19/20 12:10 02/19/20 15:33 02/19/20 15:53 Temperature 98.1 F 96.9 F L Pulse Rate 76 69 65 Respiratory Rate 12 12 18 Blood Pressure 133
[2020-02-20 09:07] LABS: Lactic Acid Reflex 0.9 mmol/L (0.4-2.0)
[2020-02-20] MEDS: PANTOPRAZOLE SODIUM IV 40 MG VIAL IV PUSH (09:29)
[2020-02-20] MEDS: SERTRALINE HCL 50 MG TABLET 100 MG PO (09:30)
[2020-02-20] MEDS: ENOXAPARIN 40 MG/0.4 ML SYRINGE SUB-Q (09:30)
[2020-02-20] MEDS: SIMVASTATIN 10 MG TABLET 20 MG PO (09:30)
[2020-02-20] MEDS: ACETAMINOPHEN 325 MG TABLET 650 MG PO (09:30)
[2020-02-20] MEDS: MAGNESIUM SULF 2 GM/WATER 50ML 2 GM/50 ML BAG IVPB (09:33)
[2020-02-20] MEDS: POTASSIUM CHLORIDE 20 MEQ PACKET (FOR LIQUID) 40 MEQ PO (09:34)
[2020-02-21] VITALS: BP 100/50; PULSE 54; PULSE 62; RESP 16; TEMP 36.4; O2SAT 99
--- NOTE | 2020-02-21 02:11 | PC.NURSE ---
Patient resting with head at foot of bed. Call light in reach.
[2020-02-21 03:38] VITALS: BP 118/65; PULSE 68; RESP 18; TEMP 36.4; O2SAT 95
--- NOTE | 2020-02-21 05:03 | PC.NURSE ---
Resting on side, respirations non labored, eyes closed, call light in reach of patient,
[2020-02-21] MEDS: ONDANSETRON INJ 4 MG/2 ML VIAL IV PUSH (05:41)
--- NOTE | 2020-02-21 05:49 | PC.NURSE ---
zofran given for nausea, no emesis, does spit in container but no emesis
[2020-02-21 05:59] LABS: Hematocrit 33.7 % (35.0-49.0); Hemoglobin 11.1 g/dL (12.0-15.0); Mean Corpuscular HGB Conc 32.9 g/dL (32.0-36.0); Mean Corpuscular Volume 100.3 fL (78.0-102.0); Mean Platelet Volume 11.2 fl (9.2-11.8); Platelet Count Result 202 K/mm3 (150-420); Red Blood Count 3.36 M/mm3 (4.20-5.40); Red Cell Distribution Width 14.1 % (11.6-14.4); White Blood Count 5.2 K/mm3 (4.8-10.8)
[2020-02-21 06:14] LABS: Anion Gap 14 mmol/L (8-16); Blood Urea Nitrogen 6 mg/dL (7-18); Calcium 8.4 mg/dL (8.5-10.1); Carbon Dioxide 25 mmol/L (21-32); Chloride 107 mmol/L (98-108); Estimated CRCL calculation 51 ml/min; Estimated Glomerular Filt Rate > 60; Glucose 68 mg/dL (70-99); Osmolality Calculated 297 mOsm/kg (285-295); Potassium 3.1 mmol/L (3.5-5.1); Sodium 146 mmol/L (136-145)
[2020-02-21 07:28] VITALS: BP 105/63; PULSE 80; RESP 16; TEMP 36.8; O2SAT 98
[2020-02-21 08:00] VITALS: PULSE 68
[2020-02-21] MEDS: SIMVASTATIN 10 MG TABLET 20 MG PO (09:04)
[2020-02-21] MEDS: SERTRALINE HCL 50 MG TABLET 100 MG PO (09:04)
[2020-02-21] MEDS: POTASSIUM CHLORIDE 20 MEQ TABLET 40 MEQ PO (09:04)
[2020-02-21] MEDS: PANTOPRAZOLE SODIUM IV 40 MG VIAL IV PUSH (09:05)
[2020-02-21] MEDS: ENOXAPARIN 40 MG/0.4 ML SYRINGE SUB-Q (09:05)
[2020-02-21 12:00] VITALS: BP 108/64; PULSE 68; RESP 16; TEMP 36.7; O2SAT 96
--- NOTE | 2020-02-21 12:03 | PM.DS ---
DS: Admitting Diagnosis Admitting Diagnosis Admitting Diagnosis: hypokalemia <ROEN Peralta - Last Filed: 02/21/20 12:30> DS: Discharge Diagnosis Discharge Diagnosis (1) Acute hypokalemia: Code(s): E87.6 - Hypokalemia <OREN Peralta - Last Filed: 02/21/20 12:30> Status: Acute <OREN Peralta - Last Filed: 02/21/20 12:30> Assessment and Plan: 02/20/2020 patient's potassium went from 1.9 to 3.3 this morning patient received additional 40 mEq potassium this morning, magnesium was low end of normal at 1.9 patient received 2 g magnesium this morning, will continue to monitor electrolytes, patient continues to be nauseated without vomiting but does have soft stools to diarrhea, hydrochlorothiazide on hold at this time 02/21/2020 Magnesium improved to 2 potassium down little to 3.1 will send home on 20 mEq potassium daily 400 mg Mag oxide daily, hold HCTZ until diarrhea is resolved, follow-up with primary care provider within 1 week <OREN Peralta - Last Filed: 02/21/20 12:30> (2) Gastroenteritis: Code(s): K52.9 - Noninfective gastroenteritis and colitis, unspecified <OREN Peralta - Last Filed: 02/21/20 12:30> Status: Acute <OREN Peralta - Last Filed: 02/21/20 12:30> Assessment and Plan: 02/20/2020 patient is receiving dicyclomine, IV fluid rehydration, taking p.o. fluids well, stool for O&P pending, patient is nauseated with no vomiting at this time. 02/21/2020 patient is taking p.o. fluids well, lab results pending for stool, nausea has improved but will add Zofran on discharge, patient tolerated broth this morning <OREN Peralta - Last Filed: 02/21/20 12:30> (3) Weakness: Code(s): R53.1 - Weakness <OREN Peralta - Last Filed: 02/21/20 12:30> Status: Acute <OREN Peralta - Last Filed: 02/21/20 12:30> Assessment and Plan: 02/20/2020 anticipate this resolving with rehydration and stabilization of electrolytes 02/21/2020 weakness has improved and anticipate this improving more upon discharge while patient continues to increase diet from full liquids to a regular diet <OREN Peralta - Last Filed: 02/21/20 12:30> (4) Diarrhea: Code(s): R19.7 - Diarrhea, unspecified <OREN Peralta - Last Filed: 02/21/20 12:30> Status: Acute <OREN Peralta - Last Filed: 02/21/20 12:30> Assessment and Plan: 02/20/2020 patient receiving dicyclomine, fluid rehydration, tolerating p.o. fluids well 02/21/2020 patient had her 1 time dose of dicyclomine from the ER, today patient has had no diarrhea, she is tolerating fluids well and is on a full liquid diet to continue this at home with Zofran for nausea and she may advance her diet as tolerated, patient have follow-up with primary care provider within a week <OREN Peralta - Last Filed: 02/21/20 12:30> DS: Summary Time Spent with Patient Time attestation: Total time spent providing and/or coordinating discharge services: < 30 min <OREN Peralta - Last Filed: 02/21/20 12:30> Exam Const: General: cooperative, no acute distress, alert and awake <OREN Peralta - Last Filed: 02/21/20 12:30> Nutritional Appearance: overweight <OREN Peralta - Last Filed: 02/21/20 12:30> Resp: Effort & Inspection: normal respiratory effort <OREN Peralta - Last Filed: 02/21/20 12:30> Auscultation: clear to auscultation bilaterally <OREN Peralta - Last Filed: 02/21/20 12:30> Cardio: Rate: regular rate <OREN Peralta - Last Filed: 02/21/20 12:30> Rhythm: regular rhythm <OREN Peralta - Last Filed: 02/21/20 12:30> Heart sounds: S1 normal heart sound present and S2 normal heart sound present <OREN Peralta - Last Filed: 02/21/20 12:30> GI: GI Palp: Yes Soft to palpation and No Tenderness to
--- NOTE | 2020-02-29 09:41 | PC.NURSE ---
Pt states she received and understood her discharge instructions. Pt also states Every doctor and nurse was wonderful! .
== END 2020-02-21 14:20 | disposition home or self-care (01) | DRG 641 ==
LOC: CHSED 11:47 → CHS2ND 15:36
PROVIDERS: Nurse Practitioner Family; Admitting Provider Emergency Medicine; Emergency Provider Emergency Medicine; Visit Provider Emergency Medicine
DX: E87.6 Hypokalemia (principal); K52.9 Noninfective gastroenteritis and colitis, unspecified; I10 Essential (primary) hypertension; F32.9 Major depressive disorder, single episode, unspecified; E83.42 Hypomagnesemia; R53.1 Weakness; Z90.49 Acquired absence of other specified parts of digestive tract
CPT/HCPCS: 36415; 74177; 80048; 80053; 81001; 83605; 83735; 83880; 84484; 85025; 85027; 87086; 87088; 87177; 87209; 87269; 87272; 93005; 96361; 96365; 96375; 99285; A9270; C9113; J1650; J2405; J3475; J7030; Q9965

== ENCOUNTER 2020-03-25 10:16 | Emergency (ER) | payer OTHER, SELFPAY ==
--- NOTE | ~2020-03-25 | CT_ITS ---
EXAMINATION: CT abdomen pelvis w con EXAM DATE: 03/25/2020 12:24 INDICATION: Mid abdominal pain with nausea and dry heaves. TECHNIQUE: Spiral CT of the abdomen and pelvis was performed following intravenous injection of 100 m L Omnipaque 350. Axial, coronal and sagittal images were reviewed. The dose-length product (DLP) fo r this examination was 380.49 mGy-cm. The exposure was tailored according to patient size (auto mA e xposure control), and iterative reconstruction (ASIR) was used as additional dose reduction technique . Comparison is made to prior examination from 02/19/2020. FINDINGS: The liver, spleen, adrenal glands and pancreas are unremarkable. There are cholecystectomy clips. Portal and splenic veins are patent. Kidneys enhance symmetrically. There is no hydronephr osis. The uterus is unremarkable. The bladder is unremarkable. There is no retroperitoneal or pe lvic lymphadenopathy. There is mild scattered arteriosclerotic disease. There are surgical changes consistent with appendectomy. The stomach and small bowel are unremarkab le. There is expected amount of colonic stool. No free intraperitoneal gas. The heart is normal in size. There are no pericardial or pleural effusions. The lung bases are unremarkable. Advanced lumbar disc disease. Moderate lumbar scoliosis. There are no osteoblastic or osteolytic lesions ident ified. IMPRESSION: No acute intra-abdominal findings. Reviewed, dictated and finalized at [facility]. 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
--- NOTE | 2020-03-25 10:26 | ED.ABDPAIN ---
HPI - Abdominal Pain General Chief Complaint: Abdominal Pain Stated Complaint: Ambulance Time Seen by Provider: 03/25/20 10:23 Source: patient, EMS and RN notes reviewed Mode of arrival: EMS Limitations: no limitations History of Present Illness HPI narrative: Patient states she has had abdominal pain over the last month. She has been here to the emergency room several times in the last month but has not mentioned the abdominal pain. She states it got much worse in last 2-3 days. Initially told the tech that she had lower abdominal pain, then told nurse she had left upper quadrant pain, then told me she epigastric pain. MD elicited complaint: abdominal pain Onset (ago): month(s) (1) Pain Consistency: intermittent Location: epigastric Severity: moderate Quality: cramping, aching and fullness Radiation: none Migration to: no migration Exacerbating factors: eating Relieving factors: nothing Associated symptoms: nausea Related Data Home Medications Medication Instructions Recorded Confirmed pantoprazole 40 mg PO DAILY 12/24/19 03/25/20 sertraline 100 mg PO DAILY 12/24/19 03/25/20 simvastatin 20 mg PO DAILY 12/24/19 03/25/20 aspirin 325 mg PO DAILY 03/25/20 03/25/20 Allergies Allergy/AdvReac Type Severity Reaction Status Date / Time nitrofurantoin Allergy Unknown Verified 12/24/19 08:41 [From Macrodantin] Penicillins Allergy Unknown Verified 12/24/19 08:41 Review of Systems Review of Systems: All systems reviewed & are unremarkable except as noted in HPI and below Constitutional: Constitutional: Denies chills and Denies fever(s) Gastrointestinal: Gastrointestinal: Denies constipation, Denies diarrhea and Denies vomiting Genitourinary: Genitourinary: Denies nocturia and Denies dysuria [facility] Past Medical History Medical History Depressed HTN (hypertension) Lipid disorder Surgical History Surgical History History of appendectomy History of cholecystectomy Hx of eye surgery S/p bilateral carpal tunnel release Family History Family History Father Muscular dystrophy Mother Leukemia Sibling Breast cancer Sibling Malignant neoplasm of prostate Social History Social History Smoking status: Never smoker Alcohol intake: former Substance use: never Gender identity (if verbalized by the patient): Female Spiritual care concerns: No Exam Const: General: healthy appearing and no acute distress Nutritional Appearance: well nourished and obese centrally obese Orientation/consciousness: patient oriented x3 HENMT: Head: normal to inspection Ears: external ears normal Mouth: Yes lip normal and Yes moist mucous membranes Eyes: Conjunctivae: conjunctivae normal Pupils: Equal, round and reactive pupils present EOM: EOMs intact bilaterally Neck: Neck: normal visual inspection Resp: Effort & Inspection: normal respiratory effort Auscultation: clear to auscultation bilaterally Cardio: Rate: regular rate Rhythm: regular rhythm GI: Inspection: normal to inspection GI Palp: Yes Soft to palpation, Yes Tenderness to palpation present (GI) (epigastric mild), Yes Guarding due to palpation present (GI) and No Rebound tenderness present Auscultation: normal bowel sounds : General: Yes no CVA tenderness Back/Spine/Pelvis: Cervical Spine: cervical ROM normal Thoracic/Lumbar Spine: thoraco-lumbar ROM normal Skin: General skin exam: normal color Rashes: no rashes Neuro: General: patient oriented x3, moves all extremities, no meningeal signs and no focal motor deficits Speech: normal speech Gait exam (Neuro): Normal gait present Extrem: General: normal to inspection and no clubbing, cyanosis or edema Psych: Appearance: grossly normal and well kempt Mental Status: mental status
[2020-03-25 10:28] VITALS: BP 112/77; PULSE 62; RESP 14; TEMP 36.8; O2SAT 100
[2020-03-25 10:46] LABS: Hematocrit 39.3 % (35.0-49.0); Hemoglobin 12.9 g/dL (12.0-15.0); Mean Corpuscular HGB Conc 32.8 g/dL (32.0-36.0); Mean Corpuscular Hemoglobin 32.9 pg (27.0-31.0); Mean Corpuscular Volume 100.3 fL (78.0-102.0); Mean Platelet Volume 10.9 fl (9.2-11.8); Platelet Count Result 197 K/mm3 (150-420); Red Blood Count 3.92 M/mm3 (4.20-5.40); Red Cell Distribution Width 12.9 % (11.6-14.4); White Blood Count 2.9 K/mm3 (4.8-10.8)
[2020-03-25 11:02] LABS: Alanine Aminotransferase 13 U/L (14-59); Albumin Level 3.1 g/dL (3.4-5.0); Alkaline Phosphatase 57 U/L (46-116); Anion Gap 14 mmol/L (8-16); Aspartate Amino Transferase 25 U/L (15-37); Bilirubin,Total 0.7 mg/dL (0.00-1.00); Blood Urea Nitrogen 4 mg/dL (7-18); Calcium 9.2 mg/dL (8.5-10.1); Carbon Dioxide 24 mmol/L (21-32); Chloride 102 mmol/L (98-108); Estimated CRCL calculation 38 ml/min; Estimated Glomerular Filt Rate 52; Glucose 95 mg/dL (70-99); Lipase 136 U/L (73-393); Osmolality Calculated 286 mOsm/kg (285-295); Sodium 140 mmol/L (136-145); Total Protein 6.4 g/dL (6.4-8.2)
[2020-03-25 11:10] LABS: Band Neutrophils Percent 0 % (0-6); CRP 0.2 mg/dL (0.0-0.9); Eosinophils Absolute Manual 0.08 K/mm3 (0.02-0.5); Eosinophils Percent Manual 3 % (1-6); Lymphocytes Absolute Manual 0.78 K/mm3 (1.1-4.5); Lymphocytes Percent Manual 27 % (18-44); Monocytes Percent Manual 7 % (3-9); Neutrophils Absolute Manual 1.82 K/mm3 (1.7-7.2); Neutrophils Percent Manual 63 % (46-73); Platelet Estimate Adequate (Adequate); Total Cells Counted 100
[2020-03-25 11:30] VITALS: BP 123/73; O2SAT 98
[2020-03-25 12:47] LABS: Add Urine Microscopic? YES; Appearance Urine Clear (Clear); Bilirubin Urine 2+ (Negative); Blood Urine Negative (Negative); Color Urine Yellow (Yellow); Glucose Urine UA Negative (Negative); Ketones Urine 1+ (Negative); Leukocyte Esterase Ur 1+ LEU/UL (Negative); Nitrate Urine Negative (Negative); Protein Urine Negative (Negative); Specific Grav Ur 1.015 (1.010-1.020)
[2020-03-25 12:52] LABS: Bacteria Urine Trace /hpf; RBC Urine 0-2 /hpf (0-2); Squamous Epithelial Cell Urine Rare /hpf (Few)
[2020-03-25 13:32] VITALS: BP 102/64; PULSE 76; RESP 16; O2SAT 100
== END 2020-03-25 13:34 | disposition home or self-care (01) ==
PROVIDERS: Emergency Provider Emergency Medicine
DX: E87.6 Hypokalemia (principal); N39.0 Urinary tract infection, site not specified; R10.84 Generalized abdominal pain
CPT/HCPCS: 36415; 74177; 80053; 81001; 83690; 85025; 86140; 87086; 87088; 99283; 99284; Q9965; Q9967

== ENCOUNTER 2020-04-03 13:35 | Observation (INO) | payer OTHER, SELFPAY ==
--- NOTE | 2020-04-03 13:56 | ECG_ITS ---
Measurements Intervals [place] Rate: 55 P: 21 KS: 140 QRS: -12 QRSD: 95 T: 205 QT: 437 QTc: 418 Interpretive Statements SINUS BRADYCARDIA DELAYED PRECORDIAL R/S TRANSITION ST-T WAVE ABNORMALITY IN HIGH LATERAL LEADS- CONSIDER ISCHEMIA ABNORMAL ECG Electronically Signed On 04-03-2020 14:13:54 [employer] by Baltazar Ball D.O.
--- NOTE | 2020-04-03 13:58 | ED.GENADULT ---
HPI - General Adult General Chief complaint: Weakness Stated complaint: weak and heavyness in chest Source: patient Mode of arrival: ambulatory Limitations: no limitations History of Present Illness HPI narrative: Eloise is a 64F with a PMH of hypokalemia, esophageal dysphagia, UTI, HTN, and depression that frequently that presented to the ED with multiple symptoms. Today she feels very weak, has some epigastric pain, nausea and a couple episodes of NBNB vomiting. Starting yesterday she also has some chest pressure on and off without any aggravating/alleviating factors. It is accompanied by some lightheadedness but no syncope. No diarrhea, constipation, CADENA, vision changes, myalgias, arhralgias, fevers or chills. Related Data Home Medications Medication Instructions Recorded Confirmed pantoprazole 40 mg PO DAILY 12/24/19 04/03/20 sertraline 100 mg PO DAILY 12/24/19 04/03/20 simvastatin 20 mg PO HS 12/24/19 04/03/20 aspirin 325 mg PO DAILY 03/25/20 04/03/20 dicyclomine 10 mg PO QID PRN 04/03/20 04/03/20 lisinopril 5 mg PO DAILY 04/03/20 04/03/20 potassium chloride 20 meq PO DAILY 04/03/20 04/03/20 tramadol 50 mg PO TID PRN 04/03/20 04/03/20 Allergies Allergy/AdvReac Type Severity Reaction Status Date / Time nitrofurantoin Allergy Unknown Verified 04/03/20 13:53 [From Macrodantin] Penicillins Allergy Unknown Verified 04/03/20 13:53 Review of Systems Constitutional: Constitutional: Reports no additional constitutional complaints Eyes: Eyes: Reports no additional eye complaints ENT: Reports system reviewed and no additional complaints, except as documented Cardiovascular: Cardiovascular: Reports as per HPI Respiratory: Respiratory: Denies dyspnea Gastrointestinal: Gastrointestinal: Reports as per HPI Genitourinary: Genitourinary: Reports no additional female genitourinary complaints Musculoskeletal: Musculoskeletal: Reports no additional musculoskeletal complaints Integumentary/Breasts: Skin/Breast: Reports system reviewed and no additional complaints, except as docu Neurologic: Reports system reviewed and no additional complaints, except as documented Psychiatric: Psychiatric: Reports no additional psychiatric complaints Endocrine: Endocrine: Reports no additional endocrine complaints Hematologic/Lymphatic: Hematologic/Lymphatic: Reports no additional hematologic/lymphatic complaints Allergic/Immunologic: Allergic/Immunologic: Reports no additional allergic/immunologic complaints [facility] Past Medical History Medical History Depressed HTN (hypertension) Lipid disorder Surgical History Surgical History History of appendectomy History of cholecystectomy Hx of eye surgery S/p bilateral carpal tunnel release Family History Family History Father Muscular dystrophy Mother Leukemia Sibling Breast cancer Sibling Malignant neoplasm of prostate Social History Social History Smoking status: Never smoker Alcohol intake: former Substance use: never Gender identity (if verbalized by the patient): Female Spiritual care concerns: No Exam Const: General: no acute distress and alert Orientation/consciousness: patient oriented x3 Limitations: No altered mental status HENMT: Head: normal to inspection Other: atraumatic Eyes: Conjunctivae: conjunctivae normal Pupils: Equal, round and reactive pupils present Neck: Neck: normal visual inspection Chest: Chest palpation & inspection: normal inspection of the chest Resp: Effort & Inspection: normal respiratory effort Auscultation: clear to auscultation bilaterally Cardio: Rate: regular rate Rhythm: regular rhythm GI: GI Palp: Yes Soft to palpation Other: mild TTP : General: Yes no CVA tenderness Back/
[2020-04-03 14:09] VITALS: BP 108/81; PULSE 72; RESP 20; TEMP 36.7; O2SAT 100
[2020-04-03 14:17] LABS: Basophils Absolute Auto 0.04 K/mm3 (0.00-0.10); Basophils Percent Auto 0.6 % (0.0-1.0); Eosinophils Absolute Auto 0.05 K/mm3 (0.02-0.50); Eosinophils Percent Auto 0.7 % (1.0-6.0); Hematocrit 35.4 % (35.0-49.0); Hemoglobin 12.2 g/dL (12.0-15.0); Immature Granulocyte Absolute 0.01 K/mm3 (0.00-0.00); Immature Granulocyte Percent A 0.1 % (0.0-0.0); Lymphocytes Absolute Auto 0.91 K/mm3 (1.10-4.50); Lymphocytes Percent Auto 13.3 % (18.0-42.0); Mean Corpuscular HGB Conc 34.5 g/dL (32.0-36.0); Mean Corpuscular Hemoglobin 33.2 pg (27.0-31.0); Mean Corpuscular Volume 96.5 fL (78.0-102.0); Mean Platelet Volume 11.1 fl (9.2-11.8); Monocytes Absolute Auto 0.66 K/mm3 (0.10-0.90); Monocytes Percent Auto 9.7 % (2.0-11.0); Neutrophils Absolute Auto 5.2 K/mm3 (1.7-7.2); Neutrophils Percent Auto 75.6 % (50.0-70.0); Platelet Count Result 187 K/mm3 (150-420); Red Blood Count 3.67 M/mm3 (4.20-5.40); Red Cell Distribution Width 12.9 % (11.6-14.4); White Blood Count 6.8 K/mm3 (4.8-10.8)
[2020-04-03] MEDS: ONDANSETRON HCL ODT 4 MG TABLET (14:30)
[2020-04-03 14:34] LABS: Alanine Aminotransferase 21 U/L (14-59); Albumin Level 2.9 g/dL (3.4-5.0); Alkaline Phosphatase 57 U/L (46-116); Anion Gap 17 mmol/L (8-16); Aspartate Amino Transferase 30 U/L (15-37); Bilirubin,Total 0.6 mg/dL (0.00-1.00); Blood Urea Nitrogen 5 mg/dL (7-18); Calcium 8.7 mg/dL (8.5-10.1); Carbon Dioxide 23 mmol/L (21-32); Chloride 97 mmol/L (98-108); Creatine Kinase 45 U/L (26-192); Estimated Glomerular Filt Rate 48; Glucose 76 mg/dL (70-99); Influenza Control Valid (Valid); Lipase 162 U/L (73-393); Magnesium 1.8 mg/dL (1.8-2.4); Osmolality Calculated 280 mOsm/kg (285-295); Potassium 2.6 mmol/L (3.5-5.1); Sodium 137 mmol/L (136-145); Total Protein 6.4 g/dL (6.4-8.2); Troponin I 7.7 ng/L (0.00-60.4)
[2020-04-03] MEDS: KCL 20 MEQ/SW 100 ML 100 ML 50 MEQ IVPB (14:57)
[2020-04-03 14:58] VITALS: PULSE 58; RESP 18; O2SAT 100
[2020-04-03 15:55] VITALS: PULSE 74; RESP 20; O2SAT 99
[2020-04-03 16:00] VITALS: BP 108/66; PULSE 60; PULSE 62; RESP 18; TEMP 36.6; O2SAT 100
[2020-04-03 16:10] VITALS: PULSE 75
--- NOTE | 2020-04-03 17:12 | ADMGEN ---
This patient, Eloise Martinez, was admitted to 2nd Floor Room 203-2. Patient/family oriented to hospital policies and general routines including ID bracelet, bed and alarms, visiting hours, pain management, procedures, bathroom and other care routines, personal items, smoking policy, room service/diet, and visiting hours. Information on how to activate the Rapid Response Team has been discussed. Patient/Family are encouraged to report perceived risks to care and to ask questions if they do not understand what they are told or what they should do. Voices no c/o of n/v @ this time. lungs clear. spo2 on ra 100%. only c/o is being cold and wanting warm blankets.
[2020-04-03 17:15] VITALS: BMI 26.4
[2020-04-03 19:25] LABS: Anion Gap 17 mmol/L (8-16); Blood Urea Nitrogen 6 mg/dL (7-18); Calcium 8.9 mg/dL (8.5-10.1); Carbon Dioxide 23 mmol/L (21-32); Chloride 95 mmol/L (98-108); Estimated CRCL calculation 41 ml/min; Estimated Glomerular Filt Rate 51; Glucose 97 mg/dL (70-99); Osmolality Calculated 277 mOsm/kg (285-295); Potassium 3.3 mmol/L (3.5-5.1); Sodium 135 mmol/L (136-145)
[2020-04-03 20:00] VITALS: PULSE 68
[2020-04-03] MEDS: ONDANSETRON INJ 4 MG/2 ML VIAL IV PUSH (20:45)
[2020-04-03] MEDS: SIMVASTATIN 10 MG TABLET 20 MG PO (21:57)
[2020-04-03] MEDS: PANTOPRAZOLE 40 MG TABLET PO (22:44)
--- NOTE | 2020-04-03 22:45 | PC.NURSE ---
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 Awaiting results.
[2020-04-04] VITALS (7 sets, daily range): BP systolic 100–115; BP diastolic 52–76; PULSE 49–91; RESP 16–18; TEMP 36.2–37.3; O2SAT 96–98
[2020-04-04 00:30] LABS: Add Urine Microscopic? YES; Appearance Urine Clear (Clear); Bilirubin Urine 2+ (Negative); Blood Urine Negative (Negative); Color Urine Yellow (Yellow); Glucose Urine UA Negative (Negative); Ketones Urine 3+ (Negative); Leukocyte Esterase Ur Trace (Negative); Nitrate Urine Negative (Negative); Protein Urine Negative (Negative); Urobilinogen Urine 0.2 mg/dL (0.2-1.0); pH Urine 6.5 (5.0-8.0)
[2020-04-04 00:37] LABS: Bacteria Urine 1+ /hpf; RBC Urine 0-2 /hpf (0-2); Squamous Epithelial Cell Urine None seen /hpf (Few)
[2020-04-04] MEDS: ONDANSETRON INJ 4 MG/2 ML VIAL IV PUSH ×3 (05:23→19:19)
[2020-04-04] MEDS: POTASSIUM CHLORIDE 20 MEQ PACKET (FOR LIQUID) 40 MEQ PO (09:53)
[2020-04-04] MEDS: ENOXAPARIN 40 MG/0.4 ML SYRINGE SUB-Q (09:54)
[2020-04-04] MEDS: ASPIRIN 325 MG ENTERIC TABLET PO (09:54)
[2020-04-04] MEDS: ACETAMINOPHEN 325 MG TABLET 650 MG PO (09:54)
[2020-04-04] MEDS: SERTRALINE HCL 50 MG TABLET 100 MG PO (09:54)
[2020-04-04 13:59] LABS: Potassium 3.9 mmol/L (3.5-5.1)
--- NOTE | 2020-04-04 14:23 | PM.IMHP ---
H&P: HPI History of Present Illness Date/Time: 04/04/20 14:23 Chief Complaint: weakness, nausea vomiting Narrative: Eloise Martinez is a 64 year old female who came to the ER because she has been feeling very weak with some epigastric pain and N/V x1. This started the day prior. She also complained of some chest pressure that was on and off throughout the day. Patient is also very weak in appearance. Patient also states that she does not feel like she is safe to go back home due to her weakness and family is concerned because she lives home alone. Review of Systems Constitutional: Constitutional: Reports no additional constitutional complaints and Reports fatigue Cardiovascular: Cardiovascular: Reports no additional cardiovascular complaints and Reports chest pain (Off and on as described in the HPI) Respiratory: Respiratory: Reports no additional respiratory complaints, Denies dyspnea and Denies dyspnea on exertion Gastrointestinal: Gastrointestinal: Reports no additional gastrointestinal complaints Genitourinary: Genitourinary: Reports no additional female genitourinary complaints Neurologic: Reports as per HPI PMFSH Past Medical History Medical History Depressed HTN (hypertension) Lipid disorder Surgical History Surgical History History of appendectomy History of cholecystectomy Hx of eye surgery S/p bilateral carpal tunnel release Family History Family History Father Muscular dystrophy Mother Leukemia Sibling Breast cancer Sibling Malignant neoplasm of prostate Social History Social History Smoking status: Never smoker Alcohol intake: never Substance use: never Gender identity (if verbalized by the patient): Female Sexual Orientation (if Verbalized by the Patient): Straight or Heterosexual Spiritual care concerns: No Meds Home Medications and Allergies Home Medications Medication Instructions Recorded Confirmed Type pantoprazole 40 mg PO DAILY 12/24/19 04/03/20 History sertraline 100 mg PO DAILY 12/24/19 04/03/20 History simvastatin 20 mg PO HS 12/24/19 04/03/20 History aspirin 325 mg PO DAILY 03/25/20 04/03/20 History levofloxacin 500 mg PO DAILY #7 tablet 03/25/20 04/03/20 Rx dicyclomine 10 mg PO QID PRN 04/03/20 04/03/20 History lisinopril 5 mg PO DAILY 04/03/20 04/03/20 History potassium chloride 20 meq PO DAILY 04/03/20 04/03/20 History tramadol 50 mg PO TID PRN 04/03/20 04/03/20 History Allergies Allergy/AdvReac Type Severity Reaction Status Date / Time nitrofurantoin Allergy Unknown Verified 04/03/20 13:53 [From Macrodantin] Penicillins Allergy Unknown Verified 04/03/20 13:53 Vital Signs Vital Signs - 24 hr 04/03/20 14:58 04/03/20 15:55 04/03/20 16:00 Temperature 98 F Pulse Rate 58 L 74 62 Respiratory Rate 18 20 18 Blood Pressure 108/66 Pulse Oximetry 100 99 100 04/03/20 16:10 04/03/20 20:00 04/04/20 00:00 Temperature 97.2 F L Pulse Rate 75 68 64 Respiratory Rate 18 Blood Pressure 103/53 L Pulse Oximetry 97 04/04/20 04:00 04/04/20 08:00 04/04/20 12:00 Temperature 99.1 F Pulse Rate 64 91 55 L Respiratory Rate 18 Blood Pressure 100/52 L Pulse Oximetry 98 04/04/20 12:41 Temperature 98.5 F Pulse Rate 74 Respiratory Rate 18 Blood Pressure 115/76 Pulse Oximetry 96 Exam Const: General: cooperative, no acute distress, alert, awake, Physically active, ill appearing and uncomfortable Nutritional Appearance: average body habitus Resp: Effort & Inspection: normal respiratory effort Auscultation: clear to auscultation bilaterally Cardio: Rate: regular rate Heart sounds: S1 normal heart sound present and S2 normal heart sound present GI: GI Palp: Yes Soft to palpation and No Tenderness to
[2020-04-04 15:02] LABS: SARS-CoV-2 Ag Negative (Negative)
--- NOTE | 2020-04-04 17:33 | PC.NURSE ---
pt appears to be sleeping, chest movement evident, no s/sx of distress, rails up, call light in reach
[2020-04-04] MEDS: SIMVASTATIN 10 MG TABLET 20 MG PO (21:25)
[2020-04-04] MEDS: PANTOPRAZOLE 40 MG TABLET PO (21:25)
[2020-04-05] VITALS (7 sets, daily range): BP systolic 102–109; BP diastolic 51–61; PULSE 51–76; RESP 16–20; TEMP 35.8–37.1; O2SAT 96–100
--- NOTE | 2020-04-05 01:00 | PC.NURSE ---
Pt denies chest pain. Pt states has slight nausea.
[2020-04-05] MEDS: ONDANSETRON INJ 4 MG/2 ML VIAL IV PUSH ×2 (01:30→08:00)
--- NOTE | 2020-04-05 01:36 | PC.NURSE ---
Pt given zofran 4 mg IVP to relieve c/o nausea.
--- NOTE | 2020-04-05 02:01 | PC.NURSE ---
Sleeping, resp even. No signs of discomfort noted @ this time.
--- NOTE | 2020-04-05 03:02 | PC.NURSE ---
Sleeping, resp even. Telemetry continues. No sign of discomfort noted.
--- NOTE | 2020-04-05 05:21 | PC.NURSE ---
Continues to deny chest pain. Continues to deny need to void. Lab here for blood draw.
[2020-04-05 05:28] LABS: Hematocrit 33.5 % (35.0-49.0); Hemoglobin 11.4 g/dL (12.0-15.0); Mean Corpuscular Hemoglobin 32.8 pg (27.0-31.0); Mean Corpuscular Volume 96.3 fL (78.0-102.0); Mean Platelet Volume 10.6 fl (9.2-11.8); Platelet Count Result 201 K/mm3 (150-420); Red Blood Count 3.48 M/mm3 (4.20-5.40); Red Cell Distribution Width 12.8 % (11.6-14.4); White Blood Count 6.2 K/mm3 (4.8-10.8)
[2020-04-05 05:39] LABS: Anion Gap 14 mmol/L (8-16); Blood Urea Nitrogen 4 mg/dL (7-18); Calcium 8.5 mg/dL (8.5-10.1); Carbon Dioxide 23 mmol/L (21-32); Chloride 102 mmol/L (98-108); Estimated CRCL calculation 41 ml/min; Estimated Glomerular Filt Rate 51; Glucose 72 mg/dL (70-99); Osmolality Calculated 283 mOsm/kg (285-295); Potassium 3.3 mmol/L (3.5-5.1); Sodium 139 mmol/L (136-145)
[2020-04-05 07:41] LABS: Magnesium 1.7 mg/dL (1.8-2.4)
[2020-04-05] MEDS: MAGNESIUM SULF 4 GM/WATER100ML 4 GM/100 ML BAG IVPB (09:09)
[2020-04-05] MEDS: POTASSIUM CHLORIDE 20 MEQ PACKET (FOR LIQUID) 40 MEQ PO (09:10)
[2020-04-05] MEDS: ENOXAPARIN 40 MG/0.4 ML SYRINGE SUB-Q (09:10)
[2020-04-05] MEDS: ASPIRIN 325 MG ENTERIC TABLET PO (09:10)
[2020-04-05] MEDS: SERTRALINE HCL 50 MG TABLET 100 MG PO (09:11)
[2020-04-05] MEDS: ACETAMINOPHEN 325 MG TABLET 650 MG PO (09:11)
--- NOTE | 2020-04-05 14:21 | PM.DS ---
DS: Admitting Diagnosis Admitting Diagnosis Admitting Diagnosis: hypokalemia urinary tract infection nausea vomiting DS: Discharge Diagnosis Discharge Diagnosis (1) Acute hypokalemia: Code(s): E87.6 - Hypokalemia Status: Acute Assessment and Plan: 04/04/2020 initial potassium was 2.6 with an EKG report of sinus bradycardia, troponin was 7.7 on a new scale that ranges between 0-60.4 mcg per L as being normal, potassium was replaced with IV and p.o. supplements increasing the potassium to 3.3 subsequently replaced with an additional 40 mEq potassium today bringing potassium to a normal 3.9. 04/05/2020 potassium of 3.3 this morning I checked magnesium which was 1.7 supplemented with 40 mEq potassium and 4 g of magnesium patient to get her levels recheck at follow-up with her primary care provider after discharge (2) Weakness: Code(s): R53.1 - Weakness Status: Acute Assessment and Plan: 04/04/2020 Will have physical therapy to discharge evaluation and from the perspective of physical therapy patient would be able to go home, however patient states she does not feel like she will be safe at home and I believe family members stated the same, so as of now case coordination will be looking for placement for this patient 04/05/2020 with a generalized weakness patient accepted being placed in a usp where she will be able to have more assistance with daily living activities (3) UTI (urinary tract infection): Qualifiers: Hematuria presence: without hematuria Urinary tract infection type: site unspecified Qualified Code(s): N39.0 - Urinary tract infection, site not specified Code(s): N39.0 - Urinary tract infection, site not specified Status: Acute Assessment and Plan: 04/04/2020 UA shows minimal criteria for UTI such as trace leukocyte esterase, 4-6 white blood cells, 1+ bacteria, forced urine culture ordered, started patient on Rocephin. 04/05/2020 urine culture still pending will send patient home on a 3 day course of Keflex patient is to follow-up with primary care provider within a week DS: Summary Hospital Course Hospital Course: Hypokalemia has been resolved along with her magnesium levels patient remains a little nauseated and will be given an order of Compazine at discharge UTI was being covered with Rocephin and will continue treatment with Keflex for 3 day period a discharge Time Spent with Patient Time attestation: Total time spent providing and/or coordinating discharge services: > 60 minutes: time includes coordinating care with team primary care physician, accepting facility, transportation. Exam Const: General: cooperative, no acute distress, alert, awake and Physically active Nutritional Appearance: average body habitus Resp: Effort & Inspection: normal respiratory effort Auscultation: clear to auscultation bilaterally Cardio: Rate: regular rate Heart sounds: S1 normal heart sound present and S2 normal heart sound present GI: GI Palp: Yes Soft to palpation and No Tenderness to palpation present (GI) Auscultation: normal bowel sounds Neuro: General: oriented to person, oriented to place and oriented to time Cranial nerves: Yes CN's II-XII intact bilaterally (grossly intact) Speech: normal speech Extrem: General: no pedal edema DS: Data Data Completed and Pending Labs on day of discharge: Labs from last 24 hours 04/05/20 04/05/20 04/05/20 07:32 05:16 05:16 WBC 6.2 RBC 3.48 L Hgb 11.4 L Hct 33.5 L MCV 96.3 MCH 32.8 H MCHC 34.0 RDW 12.8 Plt Count 201 MPV 10.6 Sodium 139 Potassium 3.3 L Chloride 102 Carbon Dioxide 23 Anion Gap 14 BUN 4 L Creatinine 1.08 H Estim Creat Clear Calc 41 Estimated GFR 51 L Glucose 72 Calculated Osmolality 283 L Calcium 8.5 Magnesium 1.7 L SARS-CoV-2 Ag (Rapid) 04/04/20 14:17 WBC RBC Hgb Hct MCV MCH MCHC RDW Plt Count MPV
[2020-04-05] MEDS: PROCHLORPERAZINE EDISYLATE 10 MG/2 ML VIAL IV PUSH (14:32)
--- NOTE | 2020-04-05 14:57 | PC.NURSE ---
Report called to Daisy Oates
--- NOTE | 2020-04-05 16:59 | PC.NURSE ---
1620 [facility] notified of need for transfer to [facility] in [place], [place].
--- NOTE | 2020-04-05 17:00 | PC.NURSE ---
1630 Nurse in room to remove telemetry unit and IV. IV removed, pressure applied to area, no active bleeding observed, pressure dressing applied. Patient alert and talking. No c/o offered. [facility] here to transfer patient.
--- NOTE | 2020-04-05 17:02 | PC.NURSE ---
1640 [facility] left with patient and belongings for transfer to [facility] in [place], [place]. [facility] facility called and notified that patient had left and given an ETA.
--- NOTE | 2020-04-08 13:01 | PC.NURSE ---
[facility] states they received and understood the discharge instructions.
== END 2020-04-05 16:40 ==
LOC: CHSED 13:37 → CHS2ND 15:19
PROVIDERS: Emergency Medicine; Nurse Practitioner Family; Admitting Provider Family Medicine; Emergency Provider Family Medicine; Visit Provider Family Medicine
DX: E87.6 Hypokalemia (principal); N39.0 Urinary tract infection, site not specified; R11.2 Nausea with vomiting, unspecified; I10 Essential (primary) hypertension; R13.19 Other dysphagia; R07.89 Other chest pain; F32.9 Major depressive disorder, single episode, unspecified; Z90.49 Acquired absence of other specified parts of digestive tract; Z20.822 Contact with and (suspected) exposure to COVID-19; Z80.3 Family history of malignant neoplasm of breast; Z80.6 Family history of leukemia; Z80.42 Family history of malignant neoplasm of prostate
CPT/HCPCS: 36415; 80048; 80053; 81001; 82550; 83690; 83735; 84132; 84484; 85025; 85027; 87086; 87426; 87804; 93005; 96365; 96367; 96372; 96375; 96376; 97161; 99285; A9270; C9803; G0378; J0696; J0780; J1650; J2405; J3475; J3480

== ENCOUNTER 2020-12-05 07:47 | Outpatient (CLI) | payer MEDICARE, OTHER, SELFPAY ==
--- NOTE | ~2020-12-05 | MM_ITS ---
EXAMINATION: MM screening aracelis BI w nathalia HISTORY: Screening mammogram TECHNIQUE: Craniocaudal and mediolateral oblique 3-D tomosynthesis images were obtained and synthetic 2-D images were generated. CAD analysis was submitted and interpreted. COMPARISON: 04/01/2018 bilateral digital screening mammogram BREAST PARENCHYMAL COMPOSITION: There are scattered areas of fibroglandular density. FINDINGS: Occasional benign calcifications. There is no evidence of suspicious mass, calcification, o r architectural distortion to suggest malignancy in either breast. There has been no suspicious inter miguel change. IMPRESSION: 1. No mammographic evidence of malignancy. 2. Recommend routine screening mammography in one year. BI-RADS Category 2: Benign finding(s). Reviewed, dictated and finalized at location A.
--- NOTE | ~2020-12-05 | DEXA_ITS ---
Bone Density Report Name: Eloise Martinez Age: 65 Sex: Female Ethnicity: White Date of : 1955 Indication: postmenopausal; screening for osteoporosis; Referring Provider: Tyree Landin Study: Bone densitometry was performed. Exam Date: December 05, 2020 Accession number: [id number] Bone Density: Region BMD T-score Z-score Classification AP Spine(L1, L4) 1.035 0.0 1.7 Normal Femoral Neck (Left) 0.729 -1.1 0.4 Osteopenia Total Hip (Left) 0.897 -0.4 0.9 Normal Femoral Neck (Right) 0.700 -1.3 0.2 Osteopenia Total Hip (Right) 0.821 -1.0 0.2 Normal Femoral Neck Mean 0.714 -1.2 0.3 Osteopenia Total Hip Mean 0.859 -0.7 0.5 Normal World Health Organization criteria for BMD impression classify patients as: Normal (T-score at or above -1.0), Osteopenia (T-score between -1.0 and -2.5), or Osteoporosis (T-score at or below -2.5). Clinical Information Provided by Patient: Has used the following medications: Calcium Patient maximum height was 62 No regular weight bearing exercise Drinks caffeinated beverages Onset of menses at age 13 Number of children 0 Impression: The patient has low bone mass, based on the Right Femoral Neck T-score. Discussion: BONE DENSITY IS LOW AT ONE OR MORE SKELETAL SITES. This patient's lowest T-score is low at one or more skeletal sites. It meets the World Health Organization's (WHO) criteria for ?low bone mass? (T-score between -1.0 and -2.5). The patient's 10-year risk of fracture as calculated by FRAX is less than the threshold where pharmacological therapy is recommended by the National Osteoporosis Foundation (NOF). However, all treatment decisions require clinical judgment and consideration of individual patient factors, including patient preferences, comorbidities, previous drug use, risk factors not captured in the FRAX model (e.g., frailty, falls, vitamin D deficiency, increased bone turnover, interval significant decline in bone density) and possible under or overestimation of fracture risk by FRAX. The patient should follow a healthful lifestyle (good nutrition with adequate calcium and vitamin D, and appropriate weight-bearing exercise). Follow-Up: Consider repeating this study in 2 to 3 years to reassess this patient's status, or sooner if there is some new clinical indication. Reported by: Dr. Chino Cullen on 12/05/2020 8:31:00 AM. Reviewed, dictated and finalized at location A. [facility]
== END 2020-12-05 07:48 | disposition home or self-care (01) ==
LOC: CHSIMG 07:51
PROVIDERS: PCP Internal Medicine; Visit Provider Internal Medicine
DX: Z12.31 Encounter for screening mammogram for malignant neoplasm of breast (principal); Z78.0 Asymptomatic menopausal state
CPT/HCPCS: 77063; 77067; 77080

== ENCOUNTER 2021-05-22 07:06 | Outpatient (CLI) | payer MEDICARE, SELFPAY ==
[2021-05-22 07:28] LABS: Add Urine Microscopic? YES; Appearance Urine Clear (Clear); Basophils Absolute Auto 0.08 K/mm3 (0.00-0.10); Basophils Percent Auto 1.7 % (0.0-1.0); Bilirubin Urine Negative (Negative); Blood Urine Negative (Negative); Color Urine Yellow (Yellow); Eosinophils Absolute Auto 0.35 K/mm3 (0.02-0.50); Eosinophils Percent Auto 7.4 % (1.0-6.0); Glucose Urine UA Negative (Negative); Hematocrit 36.7 % (35.0-42.0); Hemoglobin 11.9 g/dL (11.7-13.8); Immature Granulocyte Absolute 0.01 K/mm3 (0.00-0.00); Immature Granulocyte Percent A 0.2 % (0.0-0.0); Ketones Urine Negative (Negative); Leukocyte Esterase Ur 3+ (Negative); Lymphocytes Absolute Auto 2.06 K/mm3 (1.10-4.50); Lymphocytes Percent Auto 43.7 % (18.0-42.0); Mean Corpuscular HGB Conc 32.4 g/dL (32.0-36.0); Mean Corpuscular Hemoglobin 33.1 pg (27.0-31.0); Mean Corpuscular Volume 102.2 fL (78.0-102.0); Mean Platelet Volume 9.2 fl (9.2-11.8); Monocytes Percent Auto 10.6 % (2.0-11.0); Neutrophils Absolute Auto 1.7 K/mm3 (1.7-7.2); Neutrophils Percent Auto 36.4 % (50.0-70.0); Nitrate Urine Negative (Negative); Platelet Count Result 276 K/mm3 (150-420); Protein Urine Negative (Negative); Red Blood Count 3.59 M/mm3 (4.20-5.40); Red Cell Distribution Width 11.8 % (11.6-14.4); Specific Grav Ur 1.025 (1.010-1.020); Urobilinogen Urine 0.2 mg/dL (0.2-1.0); White Blood Count 4.7 K/mm3 (4.8-10.8)
[2021-05-22 07:38] LABS: Bacteria Urine 1+ /hpf; RBC Urine None seen /hpf (0-2); Squamous Epithelial Cell Urine Few /hpf (Few)
[2021-05-22 08:37] LABS: Alanine Aminotransferase 28 U/L (14-59); Albumin Level 3.7 g/dL (3.4-5.0); Alkaline Phosphatase 106 U/L (46-116); Anion Gap 12 mmol/L (8-16); Aspartate Amino Transferase 27 U/L (15-37); Bilirubin,Total 0.4 mg/dL (0.00-1.00); Blood Urea Nitrogen 15 mg/dL (7-18); Calcium 8.9 mg/dL (8.5-10.1); Carbon Dioxide 25 mmol/L (21-32); Chloride 107 mmol/L (98-108); Cholesterol 165 mg/dL (0-200); Estimated Glomerular Filt Rate 50; Glucose 95 mg/dL (70-99); HDL Direct 69 mg/dL (40-60); LDL Cholesterol Calculated 73 mg/dL (<130); Magnesium 2.1 mg/dL (1.8-2.4); Osmolality Calculated 298 mOsm/kg (285-295); Potassium 4.5 mmol/L (3.5-5.1); Sodium 144 mmol/L (136-145); Total Protein 6.9 g/dL (6.4-8.2); Triglycerides 114 mg/dL (0-150)
== END 2021-05-22 07:07 | disposition home or self-care (01) ==
LOC: CHSLAB 07:09
PROVIDERS: PCP Internal Medicine; Visit Provider Internal Medicine
DX: E87.6 Hypokalemia (principal); E78.5 Hyperlipidemia, unspecified; I10 Essential (primary) hypertension
CPT/HCPCS: 36415; 80053; 80061; 81001; 83735; 84443; 85025

== ENCOUNTER 2021-11-20 07:01 | Outpatient (CLI) | payer MEDICARE, SELFPAY ==
[2021-11-20 07:41] LABS: Alanine Aminotransferase 12 U/L (14-59); Albumin Level 3.8 g/dL (3.4-5.0); Alkaline Phosphatase 96 U/L (46-116); Anion Gap 9 mmol/L (8-16); Aspartate Amino Transferase 25 U/L (15-37); Bilirubin,Total 0.6 mg/dL (0.00-1.00); Blood Urea Nitrogen 15 mg/dL (7-18); Calcium 9.1 mg/dL (8.5-10.1); Carbon Dioxide 26 mmol/L (21-32); Chloride 105 mmol/L (98-108); Cholesterol 170 mg/dL (0-200); Estimated Glomerular Filt Rate 45; Glucose 107 mg/dL (70-99); HDL Direct 71 mg/dL (40-60); LDL Cholesterol Calculated 71 mg/dL (<130); Magnesium 2.2 mg/dL (1.8-2.4); Osmolality Calculated 290 mOsm/kg (285-295); Sodium 140 mmol/L (136-145); Total Protein 7.2 g/dL (6.4-8.2); Triglycerides 139 mg/dL (0-150)
[2021-11-25 09:55] LABS: Hemoglobin A1C 5.7 % (<5.7)
== END 2021-11-20 07:02 | disposition home or self-care (01) ==
LOC: CHSLAB 07:04
PROVIDERS: PCP Internal Medicine; Visit Provider Internal Medicine
DX: E78.5 Hyperlipidemia, unspecified (principal); I10 Essential (primary) hypertension; E83.42 Hypomagnesemia
CPT/HCPCS: 36415; 80053; 80061; 83036; 83735

== ENCOUNTER 2022-05-19 06:58 | Outpatient (CLI) | payer MEDICARE, SELFPAY ==
[2022-05-19 07:19] LABS: Appearance Urine Clear (Clear); Basophils Absolute Auto 0.09 K/mm3 (0.00-0.10); Basophils Percent Auto 1.8 % (0.0-1.0); Bilirubin Urine Negative (Negative); Blood Urine Negative (Negative); Color Urine Light Yellow (Yellow); Eosinophils Absolute Auto 0.24 K/mm3 (0.02-0.50); Eosinophils Percent Auto 4.8 % (1.0-6.0); Glucose Urine UA Negative (Negative); Hemoglobin 12.3 g/dL (11.7-13.8); Immature Granulocyte Absolute 0.01 K/mm3 (0.00-0.00); Immature Granulocyte Percent A 0.2 % (0.0-0.0); Ketones Urine Negative (Negative); Leukocyte Esterase Ur 1+ (Negative); Lymphocytes Absolute Auto 2.11 K/mm3 (1.10-4.50); Lymphocytes Percent Auto 42.5 % (18.0-42.0); Mean Corpuscular HGB Conc 32.4 g/dL (32.0-36.0); Mean Corpuscular Hemoglobin 33.2 pg (27.0-31.0); Mean Corpuscular Volume 102.7 fL (78.0-102.0); Mean Platelet Volume 9.5 fl (9.2-11.8); Monocytes Absolute Auto 0.47 K/mm3 (0.10-0.90); Monocytes Percent Auto 9.5 % (2.0-11.0); Neutrophils Percent Auto 41.2 % (50.0-70.0); Nitrate Urine Negative (Negative); Platelet Count Result 262 K/mm3 (150-420); Protein Urine Negative (Negative); Red Cell Distribution Width 11.9 % (11.6-14.4); Urobilinogen Urine 0.2 mg/dL (0.2-1.0)
[2022-05-19 07:29] LABS: Hemoglobin A1C 5.6 % (<5.7)
[2022-05-19 07:36] LABS: Add Urine Microscopic? YES; RBC Urine None seen /hpf (0-2)
[2022-05-19 07:37] LABS: Bacteria Urine Rare /hpf; Squamous Epithelial Cell Urine Occasional /hpf (Few); WBC Urine 0-3 /hpf (0-3)
[2022-05-19 08:14] LABS: Alanine Aminotransferase 38 U/L (14-59); Alkaline Phosphatase 94 U/L (46-116); Anion Gap 9 mmol/L (8-16); Aspartate Amino Transferase 35 U/L (15-37); Bilirubin,Total 0.7 mg/dL (0.00-1.00); Blood Urea Nitrogen 16 mg/dL (7-18); Calcium 9.1 mg/dL (8.5-10.1); Carbon Dioxide 27 mmol/L (21-32); Chloride 107 mmol/L (98-108); Cholesterol 184 mg/dL (0-200); Estimated Glomerular Filt Rate 46; Glucose 92 mg/dL (70-99); HDL Direct 79 mg/dL (40-60); LDL Cholesterol Calculated 81 mg/dL (<130); Magnesium 1.9 mg/dL (1.8-2.4); Osmolality Calculated 297 mOsm/kg (285-295); Potassium 4.5 mmol/L (3.5-5.1); Sodium 143 mmol/L (136-145); Thyroid Stimulating Hormone 2.06 uIU/mL (0.36-3.74); Total Protein 7.5 g/dL (6.4-8.2); Triglycerides 118 mg/dL (0-150)
== END 2022-05-19 06:59 | disposition home or self-care (01) ==
LOC: CHSLAB 07:00
PROVIDERS: PCP Internal Medicine; Visit Provider Internal Medicine
DX: I10 Essential (primary) hypertension (principal); N18.2 Chronic kidney disease, stage 2 (mild); R73.9 Hyperglycemia, unspecified
CPT/HCPCS: 36415; 80053; 80061; 81001; 83036; 83735; 84443; 85025

== ENCOUNTER 2022-05-28 07:47 | Outpatient (CLI) | payer MEDICARE, OTHER, SELFPAY ==
--- NOTE | ~2022-05-28 | MM_ITS ---
EXAMINATION: MM screening aracelis BI w nathalia HISTORY: Screening mammogram TECHNIQUE: Craniocaudal and mediolateral oblique 3-D tomosynthesis images were obtained and synthetic 2-D images were generated. CAD analysis was submitted and interpreted. COMPARISON: 12/05/2020, 04/01/2018 bilateral screening mammogram examinations BREAST PARENCHYMAL COMPOSITION: There are scattered areas of fibroglandular density. FINDINGS: There is no evidence of suspicious mass, calcification, or architectural distortion to sugg est malignancy in either breast. There has been no suspicious interval change. IMPRESSION: 1. No mammographic evidence of malignancy. 2. Recommend routine screening mammography in one year. BI-RADS Category 1: Negative Reviewed, dictated and finalized at location A.
== END 2022-05-28 07:48 | disposition home or self-care (01) ==
LOC: CHSIMG 07:49
PROVIDERS: PCP Internal Medicine; Visit Provider Internal Medicine
DX: Z12.31 Encounter for screening mammogram for malignant neoplasm of breast (principal)
CPT/HCPCS: 77063; 77067

== ENCOUNTER 2022-11-12 07:01 | Outpatient (CLI) | payer MEDICARE, SELFPAY ==
[2022-11-12 07:12] LABS: Hematocrit 36.8 % (35.0-42.0); Hemoglobin 12.1 g/dL (11.7-13.8); Mean Corpuscular Volume 101.9 fL (78.0-102.0); Red Blood Count 3.61 M/mm3 (4.20-5.40); White Blood Count 4.8 K/mm3 (4.8-10.8)
[2022-11-12 07:13] LABS: Basophils Absolute Auto 0.08 K/mm3 (0.00-0.10); Basophils Percent Auto 1.7 % (0.0-1.0); Eosinophils Percent Auto 6.3 % (1.0-6.0); Immature Granulocyte Absolute 0.01 K/mm3 (0.00-0.00); Immature Granulocyte Percent A 0.2 % (0.0-0.0); Lymphocytes Absolute Auto 1.97 K/mm3 (1.10-4.50); Lymphocytes Percent Auto 41.1 % (18.0-42.0); Mean Corpuscular HGB Conc 32.9 g/dL (32.0-36.0); Mean Corpuscular Hemoglobin 33.5 pg (27.0-31.0); Mean Platelet Volume 9.5 fl (9.2-11.8); Monocytes Absolute Auto 0.48 K/mm3 (0.10-0.90); Neutrophils Percent Auto 40.7 % (50.0-70.0); Platelet Count Result 248 K/mm3 (150-420); Red Cell Distribution Width 11.8 % (11.6-14.4)
[2022-11-12 07:42] LABS: Alanine Aminotransferase 34 U/L (14-59); Albumin Level 3.9 g/dL (3.4-5.0); Alkaline Phosphatase 82 U/L (46-116); Anion Gap 9 mmol/L (8-16); Aspartate Amino Transferase 28 U/L (15-37); Blood Urea Nitrogen 17 mg/dL (7-18); Calcium 9.2 mg/dL (8.5-10.1); Carbon Dioxide 25 mmol/L (21-32); Chloride 105 mmol/L (98-108); Cholesterol 185 mg/dL (0-200); Estimated Glomerular Filt Rate 46; Glucose 97 mg/dL (70-99); HDL Direct 74 mg/dL (40-60); LDL Cholesterol Calculated 84 mg/dL (<130); Osmolality Calculated 289 mOsm/kg (285-295); Potassium 4.7 mmol/L (3.5-5.1); Sodium 139 mmol/L (136-145); Total Protein 7.1 g/dL (6.4-8.2); Triglycerides 133 mg/dL (0-150)
[2022-11-16 12:19] LABS: Methylmalonic Acid 186 nmol/L (87-318)
== END 2022-11-12 07:02 | disposition home or self-care (01) ==
LOC: CHSLAB 07:03
PROVIDERS: PCP Internal Medicine; Visit Provider Internal Medicine
DX: E78.5 Hyperlipidemia, unspecified (principal); D75.89 Other specified diseases of blood and blood-forming organs
CPT/HCPCS: 36415; 80053; 80061; 83921; 85025

== ENCOUNTER 2023-05-14 07:05 | Outpatient (CLI) | payer MEDICARE, SELFPAY ==
[2023-05-14 07:24] LABS: Appearance Urine Clear (Clear); Basophils Percent Auto 1.9 % (0.0-1.0); Bilirubin Urine Negative (Negative); Blood Urine Negative (Negative); Color Urine Light Yellow (Yellow); Eosinophils Percent Auto 5.7 % (1.0-6.0); Glucose Urine UA Negative (Negative); Hematocrit 38.2 % (35.0-42.0); Immature Granulocyte Absolute 0.01 K/mm3 (0.00-0.00); Immature Granulocyte Percent A 0.2 % (0.0-0.0); Ketones Urine Negative (Negative); Leukocyte Esterase Ur 1+ (Negative); Lymphocytes Absolute Auto 2.15 K/mm3 (1.10-4.50); Lymphocytes Percent Auto 40.8 % (18.0-42.0); Mean Corpuscular HGB Conc 31.4 g/dL (32.0-36.0); Mean Corpuscular Hemoglobin 31.3 pg (27.0-31.0); Mean Corpuscular Volume 99.7 fL (78.0-102.0); Mean Platelet Volume 9.5 fl (9.2-11.8); Monocytes Absolute Auto 0.54 K/mm3 (0.10-0.90); Monocytes Percent Auto 10.2 % (2.0-11.0); Neutrophils Absolute Auto 2.2 K/mm3 (1.7-7.2); Neutrophils Percent Auto 41.2 % (50.0-70.0); Nitrate Urine Negative (Negative); Platelet Count Result 236 K/mm3 (150-420); Protein Urine Negative (Negative); Red Blood Count 3.83 M/mm3 (4.20-5.40); Red Cell Distribution Width 11.9 % (11.6-14.4); Urobilinogen Urine 0.2 mg/dL (0.2-1.0); White Blood Count 5.3 K/mm3 (4.8-10.8)
[2023-05-14 07:56] LABS: Add Urine Microscopic? YES; RBC Urine None seen /hpf (0-2); Squamous Epithelial Cell Urine Few /hpf (Few)
[2023-05-14 07:57] LABS: Bacteria Urine Trace /hpf
[2023-05-14 08:29] LABS: Alanine Aminotransferase 37 U/L (14-59); Alkaline Phosphatase 85 U/L (46-116); Anion Gap 8 mmol/L (8-16); Aspartate Amino Transferase 31 U/L (15-37); Bilirubin,Total 0.8 mg/dL (0.00-1.00); Blood Urea Nitrogen 17 mg/dL (7-18); Calcium 8.9 mg/dL (8.5-10.1); Carbon Dioxide 28 mmol/L (21-32); Chloride 105 mmol/L (98-108); Cholesterol 192 mg/dL (0-200); Estimated Glomerular Filt Rate 48; Glucose 92 mg/dL (70-99); HDL Direct 76 mg/dL (40-60); LDL Cholesterol Calculated 86 mg/dL (<130); Osmolality Calculated 293 mOsm/kg (285-295); Potassium 4.5 mmol/L (3.5-5.1); Sodium 141 mmol/L (136-145); Total Protein 7.1 g/dL (6.4-8.2); Triglycerides 151 mg/dL (0-150)
== END 2023-05-14 07:06 | disposition home or self-care (01) ==
LOC: CHSLAB 07:08
PROVIDERS: PCP Internal Medicine; Visit Provider Internal Medicine
DX: E78.5 Hyperlipidemia, unspecified (principal)
CPT/HCPCS: 36415; 80053; 80061; 81001; 84443; 85025

== ENCOUNTER 2023-05-25 07:19 | Outpatient (CLI) | payer MEDICARE, OTHER, SELFPAY ==
--- NOTE | ~2023-05-25 | DEXA_ITS ---
Bone Density Report Name: YAZMIN ANDERSON Age: 67 Sex: Female Ethnicity: White Date of : 1955 Indication: postmenopausal; screening for osteoporosis; height loss; Referring Provider: Tyree Landin Study: Bone densitometry was performed. Exam Date: May 25, 2023 Accession number: [id number] Bone Density: Region BMD T-score Z-score Classification AP Spine(L1, L4) 1.041 0.0 2.0 Normal Femoral Neck (Left) 0.729 -1.1 0.6 Osteopenia Total Hip (Left) 0.891 -0.4 0.9 Normal Femoral Neck (Right) 0.691 -1.4 0.2 Osteopenia Total Hip (Right) 0.842 -0.8 0.5 Normal Femoral Neck Mean 0.710 -1.3 0.4 Osteopenia Total Hip Mean 0.866 -0.6 0.7 Normal World Health Organization criteria for BMD impression classify patients as: Normal (T-score at or above -1.0), Osteopenia (T-score between -1.0 and -2.5), or Osteoporosis (T-score at or below -2.5). 10-year Fracture Risk(1): Major Osteoporotic Fracture 8.4% Hip Fracture 0.9% Reported Risk Factors: [place] (), Neck BMD=0.691, BMI=37.5 (1) FRAX(R) Version 3.08. Fracture probability calculated for an untreated patient. Fracture probability may be lower if the patient has received treatment. Clinical Information Provided by Patient: Has used the following medications: Vitamin D, multi Patient maximum height was 62 Menopause Age: 50 No regular weight bearing exercise Drinks caffeinated beverages Onset of menses at age 13 Number of children 0 Impression: The patient has low bone mass, based on the Right Femoral Neck T-score. Discussion: BONE DENSITY IS LOW AT ONE OR MORE SKELETAL SITES. This patient's lowest T-score is low at one or more skeletal sites. It meets the World Health Organization's (WHO) criteria for ?low bone mass? (T-score between -1.0 and -2.5). The patient's 10-year risk of fracture as calculated by FRAX is less than the threshold where pharmacological therapy is recommended by the National Osteoporosis Foundation (NOF). However, all treatment decisions require clinical judgment and consideration of individual patient factors, including patient preferences, comorbidities, previous drug use, risk factors not captured in the FRAX model (e.g., frailty, falls, vitamin D deficiency, increased bone turnover, interval significant decline in bone density) and possible under or overestimation of fracture risk by FRAX. The patient should follow a healthful lifestyle (good nutrition with adequate calcium and vitamin D, and appropriate weight-bearing exercise). Follow-Up: Consider repeating this study in 2 to 3 years to reassess this patient's status, or sooner if there is some new clinical indication. Reported by: Dr. Chino Cullen on 05/25/2023 7:50:00 AM.
== END 2023-05-25 07:20 | disposition home or self-care (01) ==
LOC: CHSIMG 07:21
PROVIDERS: PCP Internal Medicine; Visit Provider Internal Medicine
DX: Z78.0 Asymptomatic menopausal state (principal); M85.89 Other specified disorders of bone density and structure, multiple sites
CPT/HCPCS: 77080

== ENCOUNTER 2023-06-01 07:19 | Outpatient (CLI) | payer MEDICARE, OTHER, SELFPAY ==
--- NOTE | ~2023-06-01 | MM_ITS ---
EXAMINATION: MM screening aracelis BI w nathalia HISTORY: Screening TECHNIQUE: Craniocaudal and mediolateral oblique 3-D tomosynthesis images were obtained and synthetic 2-D images were generated. CAD analysis was submitted and interpreted. COMPARISON: Comparison to multiple prior studies sequentially, with oldest reviewed study dated 04/01. BREAST PARENCHYMAL COMPOSITION: There are scattered areas of fibroglandular density. FINDINGS: There is no evidence of suspicious mass, calcification, or architectural distortion to sugg est malignancy in either breast. There has been no suspicious interval change. IMPRESSION: 1. No mammographic evidence of malignancy. 2. Recommend routine screening mammography in one year. BI-RADS Category 1: Negative Reviewed, dictated and finalized at location A.
== END 2023-06-01 07:20 | disposition home or self-care (01) ==
LOC: CHSIMG 07:20
PROVIDERS: PCP Internal Medicine; Visit Provider Internal Medicine
DX: Z12.31 Encounter for screening mammogram for malignant neoplasm of breast (principal)
CPT/HCPCS: 77063; 77067

== ENCOUNTER 2023-11-19 07:12 | Outpatient (CLI) | payer MEDICARE, SELFPAY ==
[2023-11-19 07:27] LABS: Hematocrit 35.9 % (35.0-42.0); Hemoglobin 11.8 g/dL (11.7-13.8); Mean Corpuscular HGB Conc 32.9 g/dL (32-36); Mean Corpuscular Volume 100.3 fL (78.0-102.0); Mean Platelet Volume 9.7 fl (9.2-11.8); Platelet Count Result 231 K/mm3 (150-420); Red Blood Count 3.58 M/mm3 (4.20-5.40); Red Cell Distribution Width 11.9 % (11.6-14.4); White Blood Count 5.5 K/mm3 (4.8-10.8)
[2023-11-19 09:56] LABS: Alanine Aminotransferase 21 U/L (6-35); Albumin Level 4.1 g/dL (3.5-5.1); Alkaline Phosphatase 78 U/L (38-126); Anion Gap 10 mmol/L (4-12); Aspartate Amino Transferase 37 U/L (14-36); Bilirubin,Total 0.9 mg/dL (0.2-1.3); Calcium 9.6 mg/dL (8.4-10.2); Carbon Dioxide 23 mmol/L (22-30); Chloride 106 mmol/L (98-107); Cholesterol 181 mg/dL (0-200); Estimated Glomerular Filt Rate 50; Glucose 100 mg/dL (65-110); HDL Direct 74 mg/dL; LDL Cholesterol Calculated 68 mg/dL (<130); Potassium 4.4 mmol/L (3.4-5.0); Sodium 139 mmol/L (137-145); Triglycerides 195 mg/dL (<150)
[2023-11-19 15:04] LABS: Blood Urea Nitrogen 16 mg/dL (7-17); Osmolality Calculated 289 mOsm/kg (285-295)
== END 2023-11-19 07:13 | disposition home or self-care (01) ==
LOC: CHSLAB 07:14
PROVIDERS: PCP Internal Medicine; Visit Provider Internal Medicine
DX: I10 Essential (primary) hypertension (principal); E78.5 Hyperlipidemia, unspecified
CPT/HCPCS: 36415; 80053; 80061; 85027

== ENCOUNTER 2024-05-09 07:04 | Outpatient (CLI) | payer MEDICARE, SELFPAY ==
--- OUTSIDE RECORDS SUMMARY | 2024-05-09 07:09 | XMS_ITS ---
Author Organization [facility], [place] Address Unknown Allergies, Adverse Reactions, Alerts Substance Reaction Status Noted Date Resolved Date Penicillins active 04/05/2020 Nitrofurantoin active 04/05/2020 Macrodantin active 04/05/2020 Problems Problem Status Start Date End Date HYPOKALEMIA (Primary) (E87.6 - ICD-10-CM) ACTIVE 04/05/2020 MAJOR DEPRESSIVE DISORDER, S JANE EPISODE, UNSPECIFIED (F32.9 - ICD-10-CM) ACTIVE 04/05/2020 HYPERLIPIDEMIA, UNSPECIFIED (E78.5 - ICD-10-CM) ACTIVE 04/05/2020 GASTRO-ESOPHAGEAL REFLUX DIS EASE WITHOUT ESOPHAGITIS (K21.9 - ICD-10-CM) ACTIVE 04/05/2020 ESSENTIAL (PRIMARY) HYPERTENSION (I10 - ICD-10-CM) ACT KENNEDY 04/05/2020 DYSPHAGIA, PHARYNGOESOPHAGEAL PHASE (R13.14 - ICD-10-C M) ACTIVE 04/05/2020 WEAKNESS (R53.1 - ICD-10-CM) ACTIVE 04/05/2020 Encounters Encounter Performer Performer Role Encounter Diagnoses Location Date Discharge - OTHER HOME HEALTH - Private home/apt with other home health services [facility], [place] 04/05/2020 04:46 pm EST - 06/07/2020 11:40 am EDT Immunizations Vaccine Date TB 2 Step Mantoux Skin Test 04/20/2020 0 9:29 pm EST Social History
--- OUTSIDE RECORDS SUMMARY | 2024-05-09 07:10 | XMS_ITS | Continuity of Care Document ---
Author Name [facility] Organization [facility] Care Team Providers Care Keg Raiser Name Role Phone [facility] Unavailable Unavailable Problems Combined list of problems from Department of Defense and Veterans Affairs facilities. It does not include entries that were removed or entered in error. Problem Status Onset Date Problem Type Date of Resolution Comments Source Pain in unspecified limb Active 10/08/19 19 Condition DoD Major depressive disorder, recurrent, unspecified Active 10/08/19 Condition DoD Pain in left shoulder Active 02/28/20 15 Condition DoD CHRONIC URINARY TRACT INFECTIONS Active 02/12/19 95 Condition [facility] GOP[place] Active 08/13/18 95 Condition July 17, 1995 Entered By: MIKE BAUTISTA Comment: PAP NORMAL - MAMMOGRAM NORMAL [facility] E[place]ACHE Inactive 07/13/18 95 Condition 07/13/1994 July 17, 1995 Entered By: MIKE BAUTISTA Comment: INPACTION [facility] APPENDECTOMY Active 03/15/18 70 Condition [facility] Reflux Esophagitis Active Condition [facility] UGI Active Condition [facility] cellulitis of the right ring finger Active Condition DoD sacroiliitis Active Condition DoD bursitis trochanteric Active Condition DoD hyperlipidemia Active Condition DoD diarrhea Inactive Condition DoD visit for: issue repeat prescription Inactive Condition [facility] Outpatient Physician Consultation Active Condition DoD spinal stenosis Active Condition DoD depression Active Condition DoD skin abscess Inactive Condition DoD visit for: laboratory Inactive Condition DoD Mammogram Screening Inactive Condition DoD cervicalgia Active Condition DoD Need For Vaccination Against DTP Inactive Condition DoD esophageal reflux Active Condition DoD routine history and physical adult (18 - 64 yrs) Inactive Condition DoD numbness (hypesthesia) Active Condition DoD pigmented nevus Inactive Condition DoD constipation Inactive Condition DoD seborrheic keratosis Active Condition DoD visit for: preoperative exam Active Condition DoD menopause Active Condition DoD Laboratory Studies Active Condition DoD joint crepitus Active Condition DoD upper back pain Active Condition DoD Need For Vaccination Against Influenza Inactive Condition DoD Need For Vaccination Against Combinations Of Diseases Active Condition DoD visit for: general multisystem exam Active Condition DoD bunion Active Condition DoD major depression chronic Active Condition DoD breast lump or mass left Active Condition DoD visit for: administrative purpose Inactive Condition need annual mammo DoD cellulitis of the left buttock Inactive Condition Resolving. Cont Bactrim DS with warm compresses and drsg changes. Soak in sitz baths and keep clean. Pt often has vag yeast infection with abx, will give diflucan prn for s/sx of such. To use naprosyn OTC for pain with vicodin for break through. To RTC next week if not fully resolved or sooner if worsens. DoD hordeolum externum Active Condition DoD otitis externa Inactive Condition DoD esophagitis chronic reflux Active Condition Has been on P PI for 10 years. Scheduled motrin has likely exacerbated gastritis. Will refer to GI for EGD. Will stop motrin and try switching to tramadol. Will increase nexium to 40 qd. DoD menorrhagia perimenopausal Active Condition Will try proz ac for hot flashes and titrate up as needed. RTc in 3-4 weeks. DoD shortness of breath Active Condition Resolved without continuing sx. Would consider PFTs in future if returns or if HILLMAN develops. Discussed exercise regimen--to start. Discussed wt loss. DoD lumbar radiculopathy L5 Active Condition Per neurosurgery. DoD allergic rhinitis Active Condition We ll controlled with Zytrec. DoD sciatica Active Condition MRI findin gs suggestive for nerve root impingement at L5-S1 level.Will consult neurosurgery to consider epidural steroid injections vs surgical interventionF/U in DEC or JAN DoD hypertension systemic Active Condition Doing well on HCTZ 12.5 DoD sudden redness of the skin (flushing) Active Condition Has noticed an improvment on Prozac. Will continue and see back in one month. DoD visit for: screening malignant neoplasm colon Inactive Condition Consult placed for colonoscopy. DoD Blood Pressure Isolated Elevated Inactive Condition Normal on re-check. Likely elevated secondary to anxiety prior to exam. DoD dermatophytosis tinea pedis Inactive Condition Will treat with Nizorla Cream. DoD joint pain, localized in the knee Active Condition Likely mild OA. Will order plain films to r/o bony lesions. DoD visit for: screening exam malignant neoplasm breast Inactive Condition Mammogram ordered. DoD routine gynecological exam with cervical pap smear Active Condition PAP completed. Patient was uncomfortable with speculum exam without clear etiology for discomfort. Will try smaller speculum at next PAP. DoD visit for: follow-up exam Inactive Condition Negative TB Read DoD visit for: screening exam pulmonary tuberculosis Inactive Condition DoD visit for: pre-employment physical Active Condition Paperwork completed.Recom mended Hepatitis A and B immunizations.P atient will f/u next week because PPD also needed to complete form. DoD osteoarthritis Active Condition See a ros. Pt warned of the signs of serotonin syndrome with combo of tramadol and prozac. She will discontinue immediately if signs occur. If unable to tolerate pain of OA with combo of tylenol and tramadol, will consider naprosyn or low dose celebrex if no ulcer found on EGD. DoD carpal tunnel syndrome Active Condition Will get a referal to ortho to discuss surgical options. [facility] Preventive Medicine Established Patient Checkup Adult 40-64 Years Inactive Condition Will encou rage Ca and Vit D and consideration of CT bone density per Dr Urrutia at next visit. In addition, she will have lipid drawn within next year as most recent is normal from 1.5 years ago. She will also schedule screening colonoscopy for when she tu [facility] menorrhagia Active Condition Given ag e, menopause is likely occurring. Per pt request, will check FSH and LH and she will stop OCP as this is her desire. She will follow up closely and return to clinic for any other issues. DoD visit for: issue repeat prescription for medication Inactive Condition DoD breast pain Active Condition did perf orm EKG, even though story no c/w cardiac, ekg showed nsr, flipped t in avf, no comparison available. no st' changes no q waves. low voltage 2/2 obesity. discussed decreasing caffeine and start primrose to help with fibrocystic breast pain. DoD cerumen impaction Inactive Condition Re ferred to ENT through [facility] for stenotic appearing TM's. Suspect patient's subjective change in hearing is from cerumen impaction only. Exam limited secondary to inflammation from procedure. Consider regular cerumen softening as home therapy. DoD Medications Combined list of outpatient medications from Department of Defense and Veterans Affairs facilities.Medications provided include 1) outpatient medications from the last 15 months, and 2) patient-reported medications. Medication Details Route Status Patient Instructions Prescription Expires Prescription Number Last Dispense Date Ordering Provider Order Date Order Qty Source LISINOPRIL (lisinopril ), 5 MG, TABLET, ORAL, [employer], 1000 ea. BOTTLE Active [id number] 4 2023 90 Pharmac y Data Transac tion Service Facilit y LISINOPRIL (lisinopril ), 5 MG, TABLET, ORAL, [employer], 1000 ea. BOTTLE Active [id number] 4 2023 90 Pharmac y Data Transac tion Service Facilit y PANTOPRAZOL E SODIUM ([employer] 1000 TABLET, DELAYED RELEASE in 1 BOTTLE Active [id number] 4 2023 90 Pharmac y Data Transac tion Service Facilit y PANTOPRAZOL E SODIUM ([employer] 1000 TABLET, DELAYED RELEASE in 1 BOTTLE Active [id number] 4 2023 90 Pharmac y Data Transac tion Service Facilit y POTASSIUM CHLORIDE (potassium chloride), 20 MEQ, TAB ER PRT, ORAL, [employer], 500 ea. BOTTLE Active [id number] 4 2023 180 Pharmac y Data Transac tion Service Facilit y POTASSIUM CHLORIDE (potassium chloride), 20 MEQ, TAB ER PRT, ORAL, [employer], 500 ea. BOTTLE Active [id number] 4 2023 180 Pharmac y Data Transac tion Service Facilit y SERTRALINE HCL (SERTRALINE HCL), 50MG, TABLET, ORAL, LUPIN PHARMACEU, 500 ea. BOTTLE Active [id number] 4 2023 90 Pharmac y Data Transac tion Service Facilit y SERTRALINE HCL (SERTRALINE HCL), 50MG, TABLET, ORAL, LUPIN PHARMACEU, 500 ea. BOTTLE Active [id number] 4 2023 90 Pharmac y Data Transac tion Service Facilit y SIMVASTATIN (SIMVASTATI N), 20MG, TABLET, ORAL, LUPIN PHARMACEU, 1000 ea. BOTTLE Active [id number] 4 2023 90 Pharmac y Data Transac tion Service Facilit y SIMVASTATIN (SIMVASTATI N), 20MG, TABLET, ORAL, LUPIN PHARMACEU, 1000 ea. BOTTLE Active [id number] 4 2023 90 Pharmac y Data Transac tion Service Facilit y Allergies, Adverse Reactions, Alerts Combined list of allergies from Department of Defense and Veterans Affairs facilities. It does not include entries that were removed or entered in error. Substance Category Reaction Severity Reaction type Status Date Reported Comments Source HEMOPAD (MICROFIBRILL AR COLLAGEN) Drug allergy (disorder) Unknown active [address] [place] [address] Chris RIVERS ([facility]) MACRODANTIN Drug allergy (disorder) Unknown active 3 [place] [address] MICROFIBRILLA R COLLAGEN Drug allergy (disorder) Unknown active [address] [place] [address] Chris RIVERS [facility] NITROFURANTOI N Propensity to adverse reactions to drug (finding) HIVES active 6 [facility] PENICILLIN Propensity to adverse reactions to drug (finding) unknown active 6 [facility] PENICILLIN-G RELATED PENICILLINS Drug allergy (disorder) Other: unknown active 6 [facility] PENICILLINS Drug allergy (disorder) Unknown active [address] [place] [address] Chris RIVERS [facility]) Immunizations Combined list of available immunizations from the Department of Defense and Veterans Affairs facilities. Immunization Series Date Given Administered By Site Reaction Lot Number CVX Code Drug Photocomposing Keyboard Operator Status Comments Source Influenza, injectable, MDCK, preservative free, quadrivalent 2019 ILYA HERNÁNDEZ () Not Given Influenza , injectabl e, MDCK, preservat maria guadalupe free, quadrival ent [facility] influenza, injectable, quadrivalent, preservative free 2018 ILYA HERNÁNDEZ () Not Given influenza , injectabl e, quadrival ent, preservat maria guadalupe free DoD Influenza, injectable, MDCK, preservative free, quadrivalent 2015 ALUL, () Not Given Influenza , injectabl e, MDCK, preservat maria guadalupe free, quadrival ent DoD Influenza, seasonal, injectable, preservative free 2014 ALUL, () Not Given Influenza , seasonal, injectabl e, preservat maria guadalupe free DoD Influenza, seasonal, injectable, preservative free 2014 ALUL, () Not Given Influenza , seasonal, injectabl e, preservat maria guadalupe free DoD tuberculin skin test; purified protein derivative solution, intradermal 1 2010 Unknown, Provider [id number] 96 Sanofi Pasteur ([facility]) complet ed tuberculi n skin test; purified protein derivativ e solution, intraderm al DoD tetanus toxoid, reduced diphtheria toxoid, and acellular pertu is vaccine, adsorbed 1 2010 Unknown, Provider [id number] 115 [facility] ([facility]) complet ed tetanus toxoid, reduced diphtheri a toxoid, and acellular pertussis vaccine, adsorbed DoD influenza virus vaccine, split virus (incl. purified surface antigen)-reti red CODE 1 2008 Unknown, Provider [id number] 15 Sanofi Pasteur ([facility]) complet ed influenza virus vaccine, split virus (incl. purified surface antigen)- retired CODE DoD influenza virus vaccine, split virus (incl. purified surface antigen)-reti red CODE 1 2008 Unknown, Provider [id number] 15 Sanofi Pasteur ([facility]) complet ed influenza virus vaccine, split virus (incl. purified surface antigen)- retired CODE DoD hepatitis A and hepatitis B vaccine 3 2008 Unknown, Provider [id number] 104 [facility] ([facility]) complet ed hepatitis A and hepatitis B vaccine DoD tuberculin skin test; purified protein derivative solution, intradermal 1 2006 Unknown, Provider [id number] 96 [facility] ([facility]) complet ed tuberculi n skin test; purified protein derivativ e solution, intraderm al DoD hepatitis A and hepatitis B vaccine 2 2006 Unknown, Provider [id number] 104 [facility] ([facility]) complet ed hepatitis A and hepatitis B vaccine DoD influenza virus vaccine, split virus (incl. purified surface antigen)-reti red CODE 1 2005 Unknown, Provider [id number] 15 [facility] ([facility]) complet ed influenza virus vaccine, split virus (incl. purified surface antigen)- retired CODE DoD hepatitis A and hepatitis B vaccine 1 2005 Unknown, Provider [id number] 104 [facility] ([facility]) complet ed hepatitis A and hepatitis B vaccine DoD tetanus and diphtheria toxoids, adsorbed, preservative free, for adult use (2 Lf of tetanus toxoid and 2 Lf of diphtheria toxoid) 1 2002 Unknown, Provider [id number] 09 Sanofi Pasteur ([facility]) complet ed tetanus and diphtheri a toxoids, adsorbed, preservat maria guadalupe free, for adult use (2 Lf of tetanus toxoid and 2 Lf of diphtheri a toxoid) DoD influenza virus vaccine, whole virus 1 2002 Unknown, Provider [id number] 16 Sanofi Pasteur ([facility]) complet ed influenza virus vaccine, whole virus DoD influenza virus vaccine, whole virus 1 2000 Unknown, Provider [id number] 16 Sanofi Pasteur ([facility]) complet ed influenza virus vaccine, whole virus DoD Encounters Combined list of: 1) Encounters from Department of Veterans Affairs facilities going backup to the last 18 months, not all VA inpatient encounters are included; 2) Encounters from the Department of Defense facilities going backup to 280 months. Location Location Details Encounter Type Encounter Number Reason For Visit Attending Provider ADM Date DC Date Status Disposition Source [address] [place] [address] Chris RIVERS [facility]Sco tt [facility] FAMRES Tm Blue) OUTPATIENT [id number] ear prob MICHAEL URRUTIA 07/31 Released w/o Limitations [address] [place] [address] Chris RIVERS [facility]S cott [facility] Tm Blue) [address] [place] [address] Chris RIVERS [facility]Sco tt [facility] Fam Res Tm Green) OUTPATIENT [id number] lump on breast WREDE, CELIO J 08/04 Released w/o Limitations [address] [place] [address] Chris RIVERS [facility]S [facility] Fam Res Tm Green) [address] [place] [address] Chris RIVERS [facility]Sco tt [facility] Tm Blue) TELE CONSULT [id number] Rx Request MICHAEL URRUTIA 01/[address] [place] [address] Chris RIVERS [facility]S cott [facility] Tm Blue) [address] [place] [address] Chris RIVERS [facility]Sco tt [facility] Tm Blue) TELE CONSULT [id number] Rx Request MICHAEL URRUTIA 04/[address] [place] [address] Chris RIVERS [facility]S cott [facility] Tm Blue) [address] [place] [address] Chris RIVERS [facility]Sco tt [facility] Tm Blue) OUTPATIENT [id number] annual pap--YOLANDA Morales se/14 /2006 Released w/o Limitations [employer] ([facility]S cott [facility] Tm Blue) Medical [facility] [employer] ([facility]Sco tt [facility] Tm Blue) OUTPATIENT [id number] laureano palomo, SHERWIN PERALTA 10/19 Released w/o Limitations [employer] ([facility]S cott [facility] Tm Blue) [address] [place] [address] Chris [employer] ([facility]Sco tt [facility] Fam Res Tm Green) OUTPATIENT [id number] [facility] ENT PHYS/ME BUNNY MCRAE 02/18 Released w/o Limitations [employer] ([facility]S cott [facility] Fam Res Tm Green) [address] [place] [address] [employer] ([facility]Sco tt [facility] Tm Blue) OUTPATIENT [id number] IMMUNIZ ATADRIANA BAIG David 04/06 Released w/o Limitations [facility] [employer] ([facility]S cott [facility] Tm Blue) [address] [place] [address] [employer] ([facility]Sco tt [facility] Fam Res Tm Green) OUTPATIENT [id number] TB read CELESTINE CABALLERO 04/08 Released w/o Limitations [address] [place] [address] [employer] ([facility]S cott [facility] Fam Res Tm Green) [address] [place] [address] Chris [employer] ([facility]Sco tt [facility] Fam Res Tm Green) OUTPATIENT [id number] ANNUAL PAP. PHONE:[phone] BUNNY HADDAD 07/14 Released w/o Limitations [address] [place] [address] Chris [employer] ([facility]S cott [facility] Fam Res Tm Green) [address] [place] [address] [employer] [facility]Sco tt [facility] Fam Res Tm Green) TELE CONSULT [id number] BUNNY Perez 09/[address] [place] [address] Group [employer] ([facility]S cott [facility] Fam Res Tm Green) [address] [place] [address] Chris [facility]Sco tt [facility] Fam Res Tm Green) OUTPATIENT [id number] dr dolan/u BUNNY HADDAD 10/29 Released w/o Limitations [address] [place] [address] Group Chris RIVERS ([facility]S cott [facility] Fam Res Tm Green) [facility] Chris URIDerik ([facility]Sco tt [facility] Fam Res Tm Green) OUTPATIENT [id number] F/U BUNNY HADDAD 11/16 Released w/o Limitations [address] [place] [address] Chris RIVERS ([facility]S cott [facility] Fam Res Tm Green) [address] [place] [address] Chris [employer] ([facility]Sco tt [facility] Fam Res Tm Green) TELE CONSULT [id number] SHERWIN BRAND 01/[address] [place] [address] Chris RIVERS ([facility]S cott [facility] Fam Res Tm Green) [address] [place] [address] Chris RIVERS ([facility]Sco tt [facility] Fam Res Tm Green) OUTPATIENT [id number] DANA PONCE 04/06 Released w/o Limitations [address] [place] [address] Chris RIVERS ([facility]S cott [facility] Fam Res Tm Green) [address] [place] [address] Chris RIVERS ([facility])(Sco tt [facility] Tm Blue[facility] OUTPATIENT [id number] intermi ttent LUISA POND 05/03 Released w/o Limitations [address] [place] [address] Chris RIVERS ([facility]S cott [facility] Tm Blue) [address] [place] [address] Chris RIVERS ([facility])(Sco tt [facility] Fam Res Tm Green) OUTPATIENT [id number] f/u from hosp admissi on for sob/rosina nge out heart SRIKANTHISABELLA COLUNGA 05/15 Released w/o Limitations [address] [place] [address] Chris RIVERS ([facility]S cott [facility] Fam Res Tm Green) [address] [place] [address] Chris RIVERS ([facility]Sco tt [facility] Fam Res Tm Green) OUTPATIENT [id number] f/u Prozac, hot flashes , hosp visit DANA PONCE 06/16 Released w/o Limitations [address] [place] [address] Chris [employer] ([facility]S cott [facility] Fam Res Tm Green) [address] [place] [address] Chris RIVERS [facility]Sco tt Internal Medicine ) OUTPATIENT [id number] [phone] RIGHT EAR PAIN-Russ SOW HARP and DULL PAIN (CROSS BOOK FMP) BRANDT BRAVO CPT 08/21 Released w/o Limitations [facility] Chris RIVERS ([facility]S cott Interna l Medicin e Tm) [address] [place] [address] Chris RIVERS ([facility]Sco tt Internal Medicine Tm) OUTPATIENT [id number] er fol insect bite butt/fo l ear pain saw ashish wednesday AYAZ TURPIN 08/23 Released w/o Limitations [address] [place] [address] Chris RIVERS ([facility])(S cott Interna l Medicin e Tm) [address] [place] [address] Chris RIVERS ([facility]Sco tt [facility] Fam Res Tm Green) OUTPATIENT [id number] bp medicin e [phone] ISABELLA DUKE 09/01 Released w/o Limitations [address] [place] [address] Chris RIVERS ([facility]S cott [facility] Fam Res Tm Green) [address] [place] [address] Chris RIVERS ([facility])(Sco tt [facility] Fam Res Tm Green) OUTPATIENT [id number] lump in breast EMILY HAILEY M 11/28 Released w/o Limitations [address] [place] [address] Chris RIVERS ([facility]S cott [facility] Fam Res Tm Green) [address] [place] [address] Chris RIVERS [facility]co tt [facility] Fam Res Tm Green) OUTPATIENT [id number] gonzalez and cts WILLY YUAN 01/10 Released w/o Limitations [address] [place] [address] Crhis RIVERS ([facility]S cott [facility] Fam Res Tm Green) [address] [place] [address] Chris RIVERS [facility])(Sco tt [facility] Fam Res Tm Green) OUTPATIENT [id number] work DAVID Gonzalez 03/28 Released w/o Limitations [address] [place] [address] Chris RIVERS ([facility]S cott [facility] Fam Res Tm Green) [address] [place] [address] Chris RIVERS [facility])(Sco tt [facility] Fam Res Tm Green) OUTPATIENT [id number] F/U medicat ions, eval back pain (pt request ed date) [phone] YOLANDA LANDAVERDE 08/01 Released w/o Limitations [address] [place] [address] Chris RIVERS ([facility]S cott [facility] Fam Res Tm Green) [address] [place] [address] Chris RIVERS [facility]Sco tt [facility] Fam Res Tm Green) TELE CONSULT [id number] Call about results YOLANDA LANDAVERDE 08/[address] [place] [address] Chris RIVERS [facility]S cott [facility] Fam Res [employer]m Green) [address] [place] [address] Chris RIVERS [facility]Sco tt [facility] Fam Res Tm Green) OUTPATIENT [id number] 95# f/u eval for med refill/ med conditi on RICKEY HERNANDEZ 10/24 Released w/o Limitations [address] [place] [address] Chris RIVERS ([facility]S cott [facility] Fam Res [employer]) [address] [place] [address] Chris URIB [facility])(Sco tt [facility] Fam Res [employer]m Green) OUTPATIENT [id number] Meet prior to surgery [phone] SUSY YANEZ 02/27 Released w/o Limitations [address] [place] [address] Chris URIDerik [facility])(S cott [facility] Fam Res Tm Green) [address] [place] [address] Chris URIB [facility])(Sco tt [facility] FAMRES Tm Blue) TELE CONSULT [id number] Surgery [facility] Script - PCM Dr Diaz (seen by Dr Yanez) SUSY YANEZ 03/[address] [place] [address] Chris URIDerik [facility])(S cott [facility] FAMRES Tm Blue) [address] [place] [address] Chris URIDerik [facility])(Sco tt [facility] Fam Res Tm Green) TELE CONSULT [id number] request s kendra l HAILEY DIAZ 04/[address] [place] [address] Chris URIDerik [facility])(S cott [facility] Fam Res Tm Green) [address] [place] [address] Chris GREWALB [facility])(Sco tt [facility] Fam Res Tm Green) OUTPATIENT [id number] f/u hot flashes , bp, etc [id number] GETACHEW DE 10/14 Released w/o Limitations [address] [place] [address] Chris URIB [facility]S cott [facility] Fam Res Tm Green) [address] [place] [address] Chris URIB [facility])([facility]co tt [facility] Fam Res Tm Green) OUTPATIENT [id number] Physica l [phone] HAILEY DIAZ 07/08 Released w/o Limitations [address] [place] [address] Chris URIB [facility])(S cott [facility] Fam Res Tm Green) [address] [place] [address] Chris URIB [facility])(Sco tt [facility] Fam Res Tm Green) TELE CONSULT [id number] results of brain MRI - [phone] m-f after 6pm [phone] CAD VLC ROSANAVICE MARGUERITEDILLON Benavides 07/[address] [place] [address] Chris GREWALB ([facility]S cott OF Fam Res Tm Green) [address] [place] [address] Chris GREWALB ([facility]Sco tt [facility] Fam Res Tm Green) OUTPATIENT [id number] f/u numbnes s left side of body [phone] HAILEY DIAZ 08/05 Released w/o Limitations [address] [place] [address] Chirs URIB ([facility]S cott OF Fam Res Tm Green) [address] [place] [address] Chris URIB ([facility]Sco tt [facility] FAMRES Tm Blue) OUTPATIENT [id number] Mole removal STEVEN TYSONClare Sparks 08/12 Released w/o Limitations [address] [place] [address] Chris URIB ([facility]S cott OF FAMRES Tm Blue) [address] [place] [address] Chris URIB ([facility]Sco tt [facility] FAMRES Tm Blue) TELE CONSULT [id number] Radiolo gist Update Recomme ndation HAILEY DIAZ 08/[address] [place] [address] Chris URIB ([facility]S cott OF FAMRES Tm Blue) [address] [place] [address] Hcris URIB ([facility]Sco tt [facility] Fam Res Tm Green) TELE CONSULT [id number] Needs PCM to make appt for pt - Shell /[phone] MARIAJOSE LARRY 09/[address] [place] [address] Chris URIB ([facility]S cott OF Fam Res [employer] Green) [address] [place] [address] Chris URIB ([facility]Sco tt [facility] Fam Res Tm Green) TELE CONSULT [id number] needs records , etc. for referra l - Shell - [phone] before 1300 - tsg MARIAJOSE LARRY 09/[address] [place] [address] Chris URIB ([facility]S cott OF Fam Res [employer] Green) [address] [place] [address] Chris URIB ([facility]Sco tt OF Fam Res Tm Green) OUTPATIENT [id number] physcia l [phone] YOLANDA BROWN 10/13 Released w/o Limitations [address] [place] [address] Chris URIB ([facility]S cott OF Fam Res Tm Green) [address] [place] [address] Chris URIB ([facility]Sco tt [facility] FAMRES Tm Blue) OUTPATIENT [id number] TB Read WENDY MONROE Ede 10/15 Released w/o Limitations [address] [place] [address] Chris SILVESTRE ([facility]S cott [facility] FAMRES Tm Blue) [address] [place] [address] Chris RIVERS [facility])(Sco tt [facility] Fam Res Tm Green) TELE CONSULT [id number] YOLANDA BROWN Lana 10/[address] [place] [address] Chris RIVERS [facility])(S cott [facility] Fam Res Tm Green) [address] [place] [address] Chris RIVERS [facility])(Sco tt [facility] Fam Res Tm Green) TELE CONSULT [id number] request ing kendra crockett for pinched nerve [phone] MATT BROWNDELLA Schwartz 11/[address] [place] [address] Chris SILVESTRE [facility]S cott [facility] Fam Res Tm Green) [address] [place] [address] Chris RIVERS [facility])(Sco tt [facility] Fam Res Tm Green) TELE CONSULT [id number] kendra Brown cad tlt JULISSA WAYNE 02/[address] [place] [address] Chris URIDerik [facility])(S cott [facility] Fam Res Tm Green) [address] [place] [address] Chris RIVERS [facility])(Sco tt [facility] Fam Res Tm Green) TELE CONSULT [id number] Notes Entered by: HUMBERTO SIMS 11 May 2011 1341 ------- ------- ------- ------- -- Referra keira crooks on Shell cad tlt JULISSA WAYNE 05/[address] [place] [address] Chris URIDerik [facility])(S cott [facility] Fam Res Tm Green) [address] [place] [address] Chris RIVERS [facility])(Sco tt [facility] Fam Res Tm Green) TELE CONSULT [id number] Notes Entered by: HUMBERTO SIMS 14 Sep 2011 1348 ------- ------- ------- ------- -- F/u for medicat ions/MR John Denise cad tlt MODESTO SEYMOUR 09/[address] [place] [address] Chris URIDerik [facility])(S cott [facility] Fam Res Tm Green) [address] [place] [address] Chris URIDerik [facility])(Sco tt [facility] FAMRES Tm Blue) OUTPATIENT [id number] f/u: lab review and med refill UMER RUIZ 10/06 Released w/o Limitations [address] [place] [address] Chris RIVERS [facility])(S cott [facility] FAMRES Tm Blue) [address] [place] [address] Chris RIVERS [facility])(Sco tt [facility] Fam Res Tm Green) TELE CONSULT [id number] Notes Entered by: Caty WAYNE 07 Oct 2011 0929 ------- ------- ------- ------- -- Renew kendra crockett, contact #s: jefferson- [phone], cell-[phone] JULISSA WAYNE 10/[address] [place] [address] Chris RIVERS [facility])(S cott [facility] Fam Res Tm Green) [address] [place] [address] Chris RIVERS [facility] T[facility] Blue) TELE CONSULT [id number] Notes Entered by: LEANN LORD RET 30 Oct 2011 1409 ------- ------- ------- ------- -- Lab results MODESTO SEYMOUR 10/[address] [place] [address] Chrsi RIVERS [facility])(S cott [facility] FAMRES Tm Blue) [address] [place] [address] Chris RIVERS [facility])(Sco tt [facility] Fam Res Tm Green) TELE CONSULT [id number] Notes Entered by: SAHIL COVARRUBIAS 29 Feb 2012 0940 ------- ------- ------- ------- -- Spider Bite ?/Evita r/ JULISSA WAYNE 02/[address] [place] [address] Chris RIVERS [facility]S cott [facility] Fam Res Tm Green) [address] [place] [address] Chris RIVERS [facility])(Sco tt [facility] Fam Res Tm Green) OUTPATIENT [id number] red swollen area on her back UMER RUIZ 03/01 Released w/o Limitations [address] [place] [address] Chris RIVERS [facility]S cott [facility] Fam Res Tm Green) [address] [place] [address] Chris RIVERS [facility])(Sco tt [facility] Fam Res Tm Green) OUTPATIENT [id number] Skin abscess KALIN SELLERS Lana 03/17 Released w/o Limitations [address] [place] [address] Chris RIVERS ([facility]S cott [facility] Fam Res Tm Green) [address] [place] [address] Chris RIVERS ([facility]Sco tt [facility] Fam Res Tm Green) OUTPATIENT [id number] f/u procedu re on [phone] VIRIDIANA ALEXANDER 03/25 Released w/o Limitations [address] [place] [address] Chris RIVERS [facility]S cott OF Fam Res Tm Green) [address] [place] [address] Chris URIDerik ([facility]Sco tt [facility] Fam Res Tm Green) OUTPATIENT [id number] pain in both legs x 2 month-s ome swellin g [phone] VIRIDIANA ALEXANDER 06/28 Released w/o Limitations [address] [place] [address] Chris URIDerik ([facility]S cott [facility] Fam Res Tm Green) [address] [place] [address] Chris SILVESTRE [facility])(Sco tt [facility] Fam Res Tm Green) OUTPATIENT [id number] f/u leg pain/ depress ion VIRIDIANA ALEXANDER 07/18 Released w/o Limitations [address] [place] [address] Chris GREWALDerik ([facility]S cott [facility] Fam Res Tm Green) [address] [place] [address] Chris URIDerik [facility])(Sco tt [facility] FAMRES Tm Blue) TELE CONSULT [id number] Notes Entered by: ADARSH MCKENZIE 26 Jul 2012 1533 ------- ------- ------- ------- -- Network Results - Physica l Therapy - 3 VIRIDIANA ALEXANDER 07/[address] [place] [address] Chris URIB ([facility]S cott [facility] FAMRES Tm Blue) [address] [place] [address] Chris URIB ([facility]Sco tt [facility] Fam Res Tm Green) OUTPATIENT [id number] Follow up medicat ion [phone] MODESTO SEYMOUR 09/26 Released w/o Limitations [address] [place] [address] Chris URIB ([facility]S cott [facility] Fam Res Tm Green) [address] [place] [address] Chris URIB ([facility]Sco tt [facility] FAMRES Tm Blue) TELE CONSULT [id number] Notes Entered by: LEANN LORD RET 26 Sep 2012 1944 ------- ------- ------- ------- -- labs MODESTO SEYMOUR 09/[address] [place] [address] Chris [facility])(S cott [facility] FAMRES Tm Blue) [address] [place] [address] Chris [facility])(Sco tt [facility] Fam Res Tm Green) OUTPATIENT [id number] diarrhe a x two weeks [phone] MODESTO SEYMOUR 12/22 Released w/o Limitations [address] [place] [address] Chris [facility])(S [facility] Fam Res Tm Green) [address] [place] [address] Chris [facility])(Sco tt [facility] Fam Res Tm Green) OUTPATIENT [id number] harisha l - [phone] - [facility] g paperwo rk MODESTO SEYMOUR 01/30 Released w/o Limitations [address] [place] [address] Chris [facility])(S [facility] Fam Res Tm Green) [address] [place] [address] Chris [facility])(Sco tt [facility] Fam Res Tm Green) TELE CONSULT [id number] Notes Entered by: RACHEL HARRIS 28 Mar 2013 1244 ------- ------- ------- ------- -- Test results - Mikayla - [id number]/c [id number] 957v after 6pm MODESTO SEYMOUR 03/[address] [place] [address] Chris [facility])(S [facility] Fam Res Tm Green) [address] [place] [address] Chris [facility])(Sco tt [facility] Fam Res Tm Red) OUTPATIENT [id number] cough, nasal congest ion, fever over weekend [phone] PIOTR KLINE 06/12 Released w/o Limitations [address] [place] [address] Chris [facility])(S cott [facility] Fam Res Tm Red) [address] [place] [address] Chris [facility])(Sco tt [facility] Fam Res Tm Red) OUTPATIENT [id number] F/u Carpal tunnel and bowel issues MODESTO SEYMOUR 06/19 Released w/o Limitations [facility] Chris GREWALB ([facility]S cott [facility] Fam Res Tm Red) [facility] Chris GREWALB ([facility]Sco tt [facility] Fam Res Tm Red) OUTPATIENT [id number] f/u with PCM before surgery - [phone] SHOLA ROJAS 12/05 Released w/o Limitations [facility] Chris GREWALB ([facility]S cott [facility] Fam Res Tm Red) [facility] Chris GREWALB ([facility])(Sco tt [facility] Fam Res Tm Red) OUTPATIENT [id number] medicat ion review/ refill/ SHOLA ROJAS 03/22 Released w/o Limitations [facility] Chris GREWALB ([facility]S cott [facility] Fam Res Tm Red) [facility] Chris GREWALB ([facility]Sco tt [facility] Fam Res Tm Red) TELE CONSULT [id number] Notes Entered by: Omar MIRAMONTES 27 Apr 2014 1041 ------- ------- ------- ------- -- Lipid panel results WENDY PARKER 04/27 [facility] Chris GREWALB ([facility]S cott [facility] Fam Res Tm Red) [facility] Chris GREWALB ([facility])(Sco tt [facility] Fam Res Tm Red) TELE CONSULT [id number] Notes Entered by: Diane JACK 03 Jul 2014 0853 ------- ------- ------- ------- -- ER FU/Mahi morris/Marcus [phone] JULISSA WAYNE 07/03 [facility] Chris GREWALB ([facility]S cott [facility] Fam Res Tm Red) [facility] Chris GREWALB ([facility]Sco tt [facility] Fam Res Tm Red) OUTPATIENT [id number] f/u ER visit: right hand anthony benavides [phone] ANDRIA MATHIS 07/03 Released w/o Limitations [address] [place] [address] Group [employer] ([facility]S cott [facility] Fam Res Tm Red) [facility] [employer] ([facility])(Sco tt [facility] FAMRES Tm Blue) OUTPATIENT [id number] Notes Entered by: Sonia DISLA 09 Jul 2014 1339 ------- ------- ------- ------- -- walk in pre est appt ANDRIA MATHIS 07/09 Released w/o Limitations [address] [place] [address] Group Chris B [facility]S cott [facility] FAMRES Tm Blue) [address] [place] [address] Chris B [facility])(Sco tt [facility] Fam Res Tm Red) OUTPATIENT [id number] wwe/pap SHOLA ROJAS 07/18 Released w/o Limitations [address] [place] [address] Chris B [facility])(S cott [facility] Fam Res Tm Red) [address] [place] [address] Chris B [facility])(Sco tt [facility] Fam Res Tm Red) TELE CONSULT [id number] Notes Entered by: Diane JACK 29 Aug 2014 0934 ------- ------- ------- ------- -- Med refill/ [place] n/[phone] WENDY PARKER 08/[address] [place] [address] Group Chris [facility])(S cott [facility] Fam Res Tm Red) [address] [place], [place] [address]B [facility])(Sco tt [facility] Fam Res Tm Red) TELE CONSULT [id number] Notes Entered by: NEEAM JOYNER 24 Sep 2014 1011 ------- ------- ------- ------- -- Bump on side JULISSA WAYNE 09/[address] [place] [address] Group Chris B [facility])(S cott [facility] Fam Res Tm Red) [address] [place] [address] Chris GREWALB [facility])(Sco tt [facility] Fam Res Tm Red) OUTPATIENT [id number] bump right side ANDRIA MATHIS 09/27 Released w/o Limitations [address] [place] [address] Chris GREWALB [facility])(S cott [facility] Fam Res Tm Red) [address] [place] [address] Chris GREWALB [facility])(Sco tt [facility] Fam Res Tm Red) TELE CONSULT [id number] Notes Entered by: FINESSE WARREN 01 Oct 2014 0818 ------- ------- ------- ------- -- Sx: Painful bump on side - Kol[place] arellano - [phone]* JULISSA WAYNE 10/01 [facility] Chris GREWALB [facility]S [facility] Fam Res Tm Red) [facility] Chris [facility])([facility] Fam Res Tm Red) TELE CONSULT [id number] Notes Entered by: RACHEL HARRIS 01 Oct 2014 1123 ------- ------- ------- ------- -- E.R f/u - Kol[place] arellano - [phone] JULISSA WAYNE 10/[address] [place] [address] Group Chris GREWALB [facility]S [facility] Fam Res Tm Red) [address] [place] [address] Group Chris B [facility])([facility] Fam Res Tm Red) OUTPATIENT [id number] f/u ER visit: lump right side of trunk, I&D [phone] GAVI ESCAMILLA T 10/02 Released w/o Limitations [facility] Chris GREWALB ([facility]S [facility] Fam Res Tm Red) [address] [place] [address] Group Chris GREWALB [facility])([facility] Fam Res Tm Red) OUTPATIENT [id number] f/u on cut on side of body [phone] WENDY PARKER 10/05 Released w/o Limitations [facility] Chris GREWALB [facility])(S [facility] Fam Res Tm Red) [facility] Chris B [facility])([facility] Fam Res Tm Red) OUTPATIENT [id number] f/u cut GAVI ESCAMILLA T 10/10 Released w/o Limitations [facility] Chris GREWALB ([facility]S [facility] Fam Res Tm Red) [address] [place] [address] Group [employer] [facility])([facility] Fam Res Tm Red) OUTPATIENT [id number] tabby Delgado, paperwo rk ANDRIA MATHIS 02/26 Released w/o Limitations [address] [place] [address] Chris [facility])(S [facility] Fam Res Tm Red) [address] [place] [address])(War ri[facility] Cln Tm A Ad) TELE CONSULT [id number] Notes Entered by: ORVILLE DECKER 21 Mar 2015 1054 ------- ------- ------- ------- -- Lab Results /Romyssjohn dorsey-Rosi leal/2 [phone] CHARITY FIELD 03/[address] [place] [address])([facility] Tm A Ad) [address] [place] [address])([facility] Tm A Ad) OUTPATIENT [id number] f/u for R arm [id number] MARYAM QUINONES 06/27 Released w/o Limitations [address] [place] [address])([facility] Cl[facility] Tm A Ad) [address] [place] [address])([facility] Cln Tm A Ad) TELE CONSULT [id number] Notes Entered by: RICHELLE WALLS 13 Aug 2015 0808 ------- ------- ------- ------- -- Network Results -RADIOL OGY 07/25/15 MRI RT LONNY ASIF 08/[address] [place] [address])(W arrior Op Med Cln Tm A Ad) [address] [place] [address])(Med ication Refill Clinic) TELE CONSULT [id number] Notes Entered by: Omar URENA 09 Sep 2015 1550 ------- ------- ------- ------- -- Med renewal / Blessin g-Jasper almodovar / TRUMAN Vasquez 09/[address] [place] [address])(Tana parr on Refill Clinic) [address] [place] [address])(Fam ashish Med Tm B Non-AD BCC) TELE CONSULT [id number] Notes Entered by: KENDRICK RAMESH 26 Sep 2015 1526 ------- ------- ------- ------- -- Network Results ORTHOPE DICS 09/17/15 OSIRIS MORAN 09/[address] [place] [address])(F amily Med Tm B Non-AD BCC) [address] [place] [address])(Med ication Refill Clinic) TELE CONSULT [id number] Notes Entered by: PEGGY LOWERY 05 Nov 2015 1426 ------- ------- ------- ------- -- Med Bridge/ Annelise almodovar/21 [phone]/cl TRUMAN SU 11/[address] [place] [address])([facility]) [address] [place] [address])(War rior Op Med Cln Tm A Ad) OUTPATIENT [id number] [facility] [id number] MARYAM QUINONES 02/23 Released w/o Limitations [address] [place] [address])(W arrior Op Med Cln Tm A Ad) [address] [place] [address])(War ri[facility] Op Med Cln Tm A Ad) TELE CONSULT [id number] Notes Entered by: JUSTIN BUNDY 09 Jul 2016 1328 ------- ------- ------- ------- -- Lab ANIYAH DIAZ 07/09 Referred for Appointment [address] [place] [address])(W arrior Op Med Cln Tm A Ad) [address] [place] [address])(War ri[facility] Op Med Cln Tm A Ad) OUTPATIENT [id number] issue with neck MARYAM QUINONES 07/30 Released w/o Limitations [address] [place] [address])(W arrior Op Med Cln Tm A Ad) [address] [place] [address])(War rior Op Med Cln Tm A Ad) TELE CONSULT [id number] Notes Entered by: ARGENIS GATICA 24 Aug 2016 1444 ------- ------- ------- ------- -- Med Renewal / Romyssin Mayela almodovar / - sgWILLIAN Briceno 08/24 Referred for Appointment [address] [place] [address])(W arrior Op Med Cln Tm A Ad) [address] [place] [address])(War rior Op Med Cln Tm A Ad) TELE CONSULT [id number] Notes Entered by: Lana MCWILLIAMS 19 Oct 2016 0934 ------- ------- ------- ------- -- Appt Request - ER F/U/ Annelise cleary/ - AROLDO Ring 10/19 Referred for Appointment [address] [place] [address])(W arrior Op Med Cln Tm A Ad) [address] [place] [address])(Fam ashish Med Tm B Non-AD BCC) OUTPATIENT [id number] ER f/u cyst getting bigger EDOUARD LEIJA 10/22 Released w/o Limitations [address] [place] [address])(F amily Med Tm B Non-AD BCC) [address] [place] [address])(Sco tt [facility] FAMRES Tm Blue) TELE CONSULT [id number] Notes Entered by: NEEMA JOYNER 30 Oct 2016 1643 ------- ------- ------- ------- -- Pt called left message to book minor procedu re appoint BRY Poon 10/30 Referred for Appointment [address] [place] [address])(S khloe [facility] FAMRES Tm Blue) [address] [place] [address])(Min or Procedure Clinic) OUTPATIENT [id number] Epiderm al cyst CHARITY CARO 11/02 Released w/o Limitations [address] [place] [address] ([facility])(M inor Procedu re Clinic) [facility] Chris GREWALB ([facility])(Min or Procedure Clinic) OUTPATIENT [id number] cyst KIKO PRATT 11/02 Released w/o Limitations [facility] Chris SILVESTRE ([facility])(M inor Procedu re Clinic) [facility] Chris URIB ([facility])(Sco tt [facility] Fam Res Tm Green) OUTPATIENT [id number] FU Abcess Cyst KIKO PRATT 11/05 Released w/o Limitations [facility] Chris URIB ([facility])(S cott [facility] Fam Res Tm Green) Medical [facility] Chris URIB ([facility])(Sco tt [facility] Fam Res Tm Green) OUTPATIENT [id number] f/u per KALIN Reyna 11/18 Released w/o Limitations [facility] Chris URIDerik ([facility])(S cott [facility] Fam Res Tm Green) [facility] Chris URIB [facility])(War rior Op Med Cln Tm A Ad) OUTPATIENT [id number] Area on upper back - red/ten tim to touch/o ozing [id number] BLADIMIR RODRIGUEZ 12/10 Released w/o Limitations [facility] Chris URIDerik ([facility])(W arrior Op Med Cln Tm A Ad) [address] [place] [address] Chris SILVESTRE ([facility])(Fam ashish Med Tm B Non-AD BCC) OUTPATIENT [id number] I and D back ROSE MARIE GARDUNO 12/11 Released w/o Limitations [facility] [employer] Chris URIB ([facility])(F amily Med Tm B Non-AD BCC) [address] [place] [address] Chris URIB ([facility])(Fam ashish Med Tm B Non-AD BCC) OUTPATIENT [id number] cyst f/u ROSE MARIE GARDUNO 12/14 Released w/o Limitations [facility] Chris URIB ([facility])(F amily Med Tm B Non-AD BCC) [address] [place] [address] Chris URIB ([facility])(War rior Op Med Cln Tm A Ad) OUTPATIENT [id number] Physica l w/paper work, med renewal s, STEVE ANGLIN 02/15 Released w/o Limitations [address] [place] [address] Group [facility])(W arrior Op Med Cln Tm A Ad) [address] [place] [address])(War rior Op Med Cln Tm A Ad) TELE CONSULT [id number] Notes Entered by: SILVA MONTES 16 Mar 2017 1015 ------- ------- ------- ------- -- Med nelly /bre leal/2 [phone] ANIYAH Rees 03/16 Referred for Appointment [address] [place] [address])(W arrior Op Med Cln Tm A Ad) [address] [place] [address])(War rior Op Med Cln Tm A Ad) TELE CONSULT [id number] Notes Entered by: JUSTIN BUNDY 13 Apr 2017 0917 ------- ------- ------- ------- -- Med MARYAM QUINONES 04/[address] [place] [address])(W arrior Op Med Cln Tm A Ad) [address] [place] [address])(Fam ashish Med Tm B Non-AD BCC) OUTPATIENT [id number] Notes Entered by: DANILO LEIJA 25 Jun 2017 0657 ------- ------- ------- ------- -- virtu al - med EDOUARD Marie 06/25 Released w/o Limitations [address] [place] [address] Group Chris [facility])(F amily Med Tm B Non-AD BCC) [address] [place] [address])(War rior Op Med Cln Tm A Ad) OUTPATIENT [id number] Appoine moeileen from [facility] EDOUARD Marcos 08/18 Released w/o Limitations [address] [place] [address])(W arrior Op Med Cln Tm A Ad) [address] [place] [address] Chris [facility])(Fam ashish Med Tm B Non-AD BCC) TELE CONSULT [id number] Notes Entered by: DANILO LEIJA 20 Aug 2017 0705 ------- ------- ------- ------- -- LAB RESULTS EMILYANIYAH PATINO Keira 08/20 Referred for Appointment [facility])(F amily Med Tm B Non-AD BCC) [facility])(War rior Op Med Cln Tm A Ad) OUTPATIENT [id number] Virtual : KIKO Holland 10/04 Released w/o Limitations [address] [place] [address] Group [facility])(W arrior Op Med Cln Tm A Ad) [address] [place] [address])(War rior Op Med Cln Tm A Ad) TELE CONSULT [id number] Notes Entered by: FINESSE WARREN 25 Feb 2018 1023 ------- ------- ------- ------- -- Bridge Rx - Darron - - [facility] NINI GORMAN 02/25 Referred for Appointment [address] [place] [address] Group [facility])(W arrior Op Med Cln Tm A Ad) [address] [place] [address])(War rior Op Med Cln Tm A Ad) OUTPATIENT [id number] annual check up [phone] KIKO MAI 03/01 Released w/o Limitations [address] [place] [address] Group [facility])(W arrior Op Med Cln Tm A Ad) [address] [place] [address])(War rior Op Med Cln Tm A Ad) OUTPATIENT [id number] 7 left ear wax [phone] KIKO MAI 07/28 Released w/o Limitations [address] [place] [address])(W arrior Op Med Cln Tm A Ad) [address] [place] [address])(War rior Op Med Cln Tm A Ad) OUTPATIENT [id number] RX renewal JULYLIDIA 10/06 Released w/o Limitations [address] [place] [address] Group Chris [facility])(W arrior Op Med Cln Tm A Ad) [employer] Chris [facility])(War rior Op Med Cln Tm A Ad) OUTPATIENT [id number] 1 med renewal s KIKO MAI 03/01 Released w/o Limitations [address] [place] [address] Chris [facility])(W arrior Op Med Cln Tm A Ad) [address] [place] [address] Group [facility])(War rior Op Med Cln Tm A Ad) OUTPATIENT [id number] RX eval,21 [phone] phone call apptCRISTIANO STEPHEN M 09/20 Released w/o Limitations [address] [place] [address] Group Chris [facility])(W arrior Op Med Cln Tm A Ad) [address] [place] [address] Group [facility])(Sco tt [facility] FAMRES Tm Blue) TELE CONSULT [id number] Notes Entered by: FINESSE WARREN 30 Jan 2020 0903 ------- ------- ------- ------- -- [facility] keyur Yvette price - - [facility] PAULINE GARCIA 01/29 Referred for Appointment [address] [place] [address] Chris [facility])(S [facility] FAMRES Tm Blue) [address] [place] [address])(Sco tt [facility] FAMRES Tm Blue) OUTPATIENT [id number] 2 *In Person annual chk-up/ meds renewal ANTHONY PAZ 02/22 Released w/o Limitations [address] [place] [address] [facility] FAMRES Tm Blue) [address] [place] [address] Chris [facility])(Sco tt [facility] FAMRES Tm Blue) TELE CONSULT [id number] Notes Entered by: ANTHONY PAZ 01 Mar 2020 1002 ------- ------- ------- ------- -- F/U Lab Results ANTHONY PAZ 03/01 Referred for Appointment [address] [place] [address] Chris [facility])(S cott [facility] FAMRES Tm Blue) [address] [place] [address] Chris [facility])(Sco tt [facility] FAMRES Tm Blue) TELE CONSULT [id number] Notes Entered by: VERONICA IGLESISA 28 Mar 2020 0830 ------- ------- ------- ------- -- SX Stomach pain/ Phone Call Request / Yvette price/ CHARITY SERVIN 03/28 Advice Assessment [address] [place] [address])(S cott [facility] FAMRES Tm Blue) [address] [place] [address])(Sco tt [facility] FAMRES Tm Blue) TELE CONSULT [id number] Notes Entered by: BARB ROLON 02 Apr 2020 1206 ------- ------- ------- ------- -- med refill/ yvette price/21 [phone] CHARITY Carnes 04/02 Referred for Appointment [address] [place] [address])(S cott [facility] FAMRES Tm Blue) [address] [place] [address])(Sco tt [facility] FAMRES Tm Blue) OUTPATIENT [id number] 2 FTF-Fol low up after Dc Nursing facilit [phone] ANTHONY PAZ 06/10 Released w/o Limitations [address] [place] [address])(S cott [facility] FAMRES Tm Blue) [address] [place] [address])(Sco tt [facility] FAMRES Tm Blue) TELE CONSULT [id number] Notes Entered by: ANTHONY PAZ 20 Jun 2020 1622 ------- ------- ------- ------- -- F/U Lab results ANTHONY PAZ 06/20 Released to [facility] [address] [place] [address])(S cott [facility] FAMRES Tm Blue) [address] [place] [address])(Sco tt [facility] FAMRES Tm Blue) TELE CONSULT [id number] Notes Entered by: VERONICA IGLESIAS 09 Jul 2020 1225 ------- ------- ------- ------- -- Kendra Méndez / Yvette price/(2 08) [phone] ANTHONY PAZ Edgard 07/09 Released to [facility] [address] [place] [address] Chris RIVERS ([facility])([facility] FAM[facility] Tm Blue) [address] [place] [address] Chris GREWALB ([facility])(Sco tt [facility] FAMRES Tm Blue) TELE CONSULT [id number] 3 ANTHONY PAZ Edgard 08/06 Released to Self Care [address] [place] [address] Chris URIB ([facility])([facility] FAMRES Tm Blue) [address] [place] [address] Chris GREWALB ([facility])(Sco tt [facility] FAMVisual Realm Tm Blue) OUTPATIENT [id number] F2F - f/u on labs, SERENA EDWARDS 09/04 Released w/o Limitations [address] [place] [address] Chris URIDerik ([facility])([facility] Tm Blue) Procedures Combined list of: 1) Procedures from Department of Veterans Affairs facilities going back up to thelast 18 months, not all VA non-surgical procedures are included; 2) All procedures from the Department of Defense facilities. Procedure Procedure Type Code Date Perfomer Comments [facility] e TELE ASSESS & MGT SRV PROV QUAL NONPHYS HLTH CARE PRO TO EST PAT,PARENT,GUARD NOT ORIG REL ASSESS & MGT SRV PROV W/IN PREV 7 DAYS NOR LEAD ASSESS & MGT SRV/PX W/IN NXT 24H/SOON APT; 11-20 MIN MED DIS DoD TELE ASSESS & MGT SRV PROV QUAL NONPHYS HLTH CARE PRO TO EST PAT,PARENT,GUARD NOT ORIG REL ASSESS & MGT SRV PROV W/IN PREV 7 DAYS NOR LEAD ASSESS & MGT SRV/PX W/IN NXT 24H/SOON APT; 11-20 MIN MED DIS DoD ELECTROCARDIOGRAM, ROUTINE ECG WITH AT LEAST 12 LEADS; WITH INTERPRETATION AND REPORT DoD TELE ASSESS & MGT SRV PROV QUAL NONPHYS HLTH CARE PRO TO EST PAT,PARENT,GUARD NOT ORIG REL ASSESS & MGT SRV PROV W/IN PREV 7 DAYS NOR LEAD ASSESS & MGT SRV/PX W/IN NXT 24 HR/SOON APT;5-10 MIN MED DIS 020 DoD BRIEF EMOTIONAL/BEHAVIORA L ASSESSMENT (EG, DEPRESSION INVENTORY, ATTENTION-DEFICIT/H YPERACTIVITY DISORDER [ADHD] SCALE), WITH SCORING AND DOCUMENTATION, PER STANDARDIZED INSTRUMENT [facility] DISEASE MANAGEMENT PROGRAM, FOLLOW-UP/REASSESSM ENT 018 DoD ONLINE ASSESS &MANAG SERV PROVIDE,A QUAL NONPHYS HCP TO AN ESTABLISHED PAT/GUARDIAN,NOT ORIGINAT FRM RELAT ASSESS &MANAG SERV PROVIDE W/IN THE PREV 7 DAYS,USE THE [employer]/SIMILAR [facility] COMM NETWORK 018 DoD TELE ASSESS & MGT SRV PROV QUAL NONPHYS HLTH CARE PRO TO EST PAT,PARENT,GUARD NOT ORIG REL ASSESS & MGT SRV PROV W/IN PREV 7 DAYS NOR LEAD ASSESS & MGT SRV/PX W/IN NXT 24 HR/SOON APT;5-10 MIN MED DIS 018 [facility] ONLINE ASSESS &MANAG SERV PROVIDE,A QUAL NONPHYS HCP TO AN ESTABLISHED PAT/GUARDIAN,NOT ORIGINAT FRM RELAT ASSESS &MANAG SERV PROVIDE W/IN THE PREV 7 DAYS,USE THE [employer]/SIMILAR [employer] NETWORK 018 DoD TELE ASSESS & MGT SRV PROV QUAL NONPHYS HLTH CARE PRO TO EST PAT,PARENT,GUARD NOT ORIG REL ASSESS & MGT SRV PROV W/IN PREV 7 DAYS NOR LEAD ASSESS & MGT SRV/PX W/IN NXT 24 HR/SOON APT;5-10 MIN MED DIS 018 [facility] DEBRIDEMENT, OPEN WOUND, INCL TOP APPLICAT, WOUND ASSESSMENT, USE OF A WHIRLPOOL, WHEN PERFORMED AND INSTRUCTION(S) FOR ONGOING CARE, PER SESSION, TOTAL WOUND(S) SURFACE AREA; FIRST 20 SQ CM OR LESS 017 [facility] INCISION AND DRAINAGE OF ABSCESS (EG, CARBUNCLE, SUPPURATIVE HIDRADENITIS, CUTANEOUS OR SUBCUTANEOUS ABSCESS, CYST, FURUNCLE, OR PARONYCHIA); SIMPLE OR SINGLE 017 DoD COLLECTION OF MICROORGANISMS FOR CULTURE AND SENSITIVITY 017 DoD TELE ASSESS & MGT SRV PROV QUAL NONPHYS HLTH CARE PRO TO EST PAT,PARENT,GUARD NOT ORIG REL ASSESS & MGT SRV PROV W/IN PREV 7 DAYS NOR LEAD ASSESS & MGT SRV/PX W/IN NXT 24H/SOON APT; 11-20 MIN MED DIS 017 DoD TELE ASSESS & MGT SRV PROV QUAL NONPHYS HLTH CARE PRO TO EST PAT,PARENT,GUARD NOT ORIG REL ASSESS & MGT SRV PROV W/IN PREV 7 DAYS NOR LEAD ASSESS & MGT SRV/PX W/IN NXT 24 HR/SOON APT;5-10 MIN MED DIS 017 DoD TELE ASSESS & MGT SRV PROV QUAL NONPHYS HLTH CARE PRO TO EST PAT,PARENT,GUARD NOT ORIG REL ASSESS & MGT SRV PROV W/IN PREV 7 DAYS NOR LEAD ASSESS & MGT SRV/PX W/IN NXT 24 HR/SOON APT;5-10 MIN MED DIS 017 DoD TELE ASSESS & MGT SRV PROV QUAL NONPHYS HLTH CARE PRO TO EST PAT,PARENT,GUARD NOT ORIG REL ASSESS & MGT SRV PROV W/IN PREV 7 DAYS NOR LEAD ASSESS & MGT SRV/PX W/IN NXT 24 HR/SOON APT;5-10 MIN MED DIS 016 DoD TELE ASSESS & MGT SRV PROV QUAL NONPHYS HLTH CARE PRO TO EST PAT,PARENT,GUARD NOT ORIG REL ASSESS & MGT SRV PROV W/IN PREV 7 DAYS NOR LEAD ASSESS & MGT SRV/PX W/IN NXT 24 HR/SOON APT;5-10 MIN MED DIS 016 DoD TELE ASSESS & MGT SRV PROV QUAL NONPHYS HLTH CARE PRO TO EST PAT,PARENT,GUARD NOT ORIG REL ASSESS & MGT SRV PROV W/IN PREV 7 DAYS NOR LEAD ASSESS & MGT SRV/PX W/IN NXT 24 HR/SOON APT;5-10 MIN MED DIS 016 DoD TELE ASSESS & MGT SRV PROV QUAL NONPHYS HLTH CARE PRO TO EST PAT,PARENT,GUARD NOT ORIG REL ASSESS & MGT SRV PROV W/IN PREV 7 DAYS NOR LEAD ASSESS & MGT SRV/PX W/IN NXT 24 HR/SOON APT;5-10 MIN MED DIS 015 DoD TELE ASSESS & MGT SRV PROV QUAL NONPHYS HLTH CARE PRO TO EST PAT,PARENT,GUARD NOT ORIG REL ASSESS & MGT SRV PROV W/IN PREV 7 DAYS NOR LEAD ASSESS & MGT SRV/PX W/IN NXT 24 HR/SOON APT;5-10 MIN MED DIS 015 DoD TELE ASSESS & MGT SRV PROV QUAL NONPHYS HLTH CARE PRO TO EST PAT,PARENT,GUARD NOT ORIG REL ASSESS & MGT SRV PROV W/IN PREV 7 DAYS NOR LEAD ASSESS & MGT SRV/PX W/IN NXT 24 HR/SOON APT;5-10 MIN MED DIS 015 DoD SCREENING PAPANICOLAOU SMEAR; OBTAINING, PREPARING AND CONVEYANCE OF CERVICAL OR VAGINAL SMEAR TO LABORATORY 015 DoD INCISION AND DRAINAGE OF ABSCESS (EG, CARBUNCLE, SUPPURATIVE HIDRADENITIS, CUTANEOUS OR SUBCUTANEOUS ABSCESS, CYST, FURUNCLE, OR PARONYCHIA); SIMPLE OR SINGLE 015 DoD TELE ASSESS & MGT SRV PROV QUAL NONPHYS HLTH CARE PRO TO EST PAT,PARENT,GUARD NOT ORIG REL ASSESS & MGT SRV PROV W/IN PREV 7 DAYS NOR LEAD ASSESS & MGT SRV/PX W/IN NXT 24 HR/SOON APT;5-10 MIN MED DIS 015 DoD ARTHROCENTESIS, ASPIRATION AND/OR INJECTION, SMALL JOINT OR BURSA (EG, FINGERS, TOES); WITHOUT ULTRASOUND GUIDANCE 013 DoD INCISION AND DRAINAGE, OPEN, OF DEEP ABSCESS (SUBFASCIAL), POSTERIOR SPINE; CERVICAL, THORACIC, OR CERVICOTHORACIC 013 DoD TELE ASSESS & MGT SRV PROV QUAL NONPHYS HLTH CARE PRO TO EST PAT,PARENT,GUARD NOT ORIG REL ASSESS & MGT SRV PROV W/IN PREV 7 DAYS NOR LEAD ASSESS & MGT SRV/PX W/IN NXT 24 HR/SOON APT;5-10 MIN MED DIS 012 DoD TELE ASSESS & MGT SRV PROV QUAL NONPHYS HLTH CARE PRO TO EST PAT,PARENT,GUARD NOT ORIG REL ASSESS & MGT SRV PROV W/IN PREV 7 DAYS NOR LEAD ASSESS & MGT SRV/PX W/IN NXT 24 HR/SOON APT;5-10 MIN MED DIS 012 DoD TELE ASSESS & MGT SRV PROV QUAL NONPHYS HLTH CARE PRO TO EST PAT,PARENT,GUARD NOT ORIG REL ASSESS & MGT SRV PROV W/IN PREV 7 DAYS NOR LEAD ASSESS & MGT SRV/PX W/IN NXT 24 HR/SOON APT;5-10 MIN MED DIS 012 DoD TELE ASSESS & MGT SRV PROV QUAL NONPHYS HLTH CARE PRO TO EST PAT,PARENT,GUARD NOT ORIG REL ASSESS & MGT SRV PROV W/IN PREV 7 DAYS NOR LEAD ASSESS & MGT SRV/PX W/IN NXT 24 HR/SOON APT;5-10 MIN MED DIS 012 DoD TELE ASSESS & MGT SRV PROV QUAL NONPHYS HLTH CARE PRO TO EST PAT,PARENT,GUARD NOT ORIG REL ASSESS & MGT SRV PROV W/IN PREV 7 DAYS NOR LEAD ASSESS & MGT SRV/PX W/IN NXT 24 HR/SOON APT;5-10 MIN MED DIS 011 DoD TELE ASSESS & MGT SRV PROV QUAL NONPHYS HLTH CARE PRO TO EST PAT,PARENT,GUARD NOT ORIG REL ASSESS & MGT SRV PROV W/IN PREV 7 DAYS NOR LEAD ASSESS & MGT SRV/PX W/IN NXT 24 HR/SOON APT;5-10 MIN MED DIS 010 DoD INFLUENZA VIRUS VACCINE, TRIVALENT (IIV3), SPLIT VIRUS, 0.5 ML DOSAGE, FOR INTRAMUSCULAR USE 009 DoD REMOVAL IMPACTED CERUMEN REQUIRING INSTRUMENTATION, UNILATERAL 008 [facility] ELECTROCARDIOGRAM, ROUTINE ECG WITH AT LEAST 12 LEADS; WITH INTERPRETATION AND REPORT 008 [facility] IMMUNIZATION ADMINISTRATION (INCLUDES PERCUTANEOUS, INTRADERMAL, SUBCUTANEOUS, OR INTRAMUSCULAR INJECTIONS); EACH ADDITIONAL VACCINE (SINGLE OR COMBINATION VACCINE/TOXOID) 007 DoD OSTEOPATHIC MANIPULATIVE TREATMENT (OMT); 3-4 BODY REGIONS INVOLVED 006 [facility] SCREENING PAPANICOLAOU SMEAR; OBTAINING, PREPARING AND CONVEYANCE OF CERVICAL OR VAGINAL SMEAR TO LABORATORY 006 DoD REMOVAL IMPACTED CERUMEN REQUIRING INSTRUMENTATION, UNILATERAL 005 DoD SCREENING PAPANICOLAOU SMEAR, CERVICAL OR VAGINAL, UP TO THREE SMEARS, REQUIRING INTERPRETATION BY PHYSICIAN 004 DoD LAPAROSCOPY 993 [facility] APPENDECTOMY 993 [facility] Psychometric Emotional / Behavioral A e ment Psychometric Emotional / Behavioral Assessment [id number] [id number] CARLIN LIDIA R [facility] Disease management program, follow-up/marquita e ment 018 NINI GORMAN [facility] Internet Med Svc Qual Nonphys Healthcare Prof Up To 7 Days Estab Patient Internet Med Svc Qual Nonphys Healthcare Prof Up To 7 Days Estab Patient [phone] KIKO MAI [facility] Non-Physician Phone Call To Patient/Provider Brief (5-10min) Non-Physician Phone Call To Patient/Provider Brief (5-10min) [id number] [phone] ANIYAH DIAZ [facility] Internet Med Svc Qual Nonphys Healthcare Prof Up To 7 Days Estab Patient Internet Med Svc Qual Nonphys Healthcare Prof Up To 7 Days Estab Patient [id number] EDOUARD LEIJA [facility] Non-Physician Phone Call To Patient/Provider Brief (5-10min) Non-Physician Phone Call To Patient/Provider Brief (5-10min) [id number] ANIYAH DIAZ [facility] Wound Care Debridement Selective (Up To 20 square cm) Wound Care Debridement Selective (Up To 20 square cm) [id number] [phone] ROSE MARIE GARDUNO [facility] Incision And Drainage Of Skin Absce Incision And Drainage Of Skin Abscess [id number] BLADIMIR RODRIGUEZ [facility] Collection of microorganisms for culture and sensitivity 017 KIKO PRATT [facility] Non-Physician Phone Call To Pt/Provider Intermed (11-20 min) Non-Physician Phone Call To Pt/Provider Intermed (11-20 min) [phone] BRY XAVIER [facility] Non-Physician Phone Call To Patient/Provider Brief (5-10min) Non-Physician Phone Call To Patient/Provider Brief (5-10min) [phone] WILLIAN ABREU [facility] Non-Physician Phone Call To Patient/Provider Brief (5-10min) Non-Physician Phone Call To Patient/Provider Brief (5-10min) [id number] ANIYAH DIAZ [facility] Non-Physician Phone Call To Patient/Provider Brief (5-10min) Non-Physician Phone Call To Patient/Provider Brief (5-10min) [phone] MARYAM DAWSON [facility] Non-Physician Phone Call To Patient/Provider Brief (5-10min) Non-Physician Phone Call To Patient/Provider Brief (5-10min) [phone] TRUMAN SU Non-Physician Phone Call To Patient/Provider Brief (5-10min) Non-Physician Phone Call To Patient/Provider Brief (5-10min) [phone] TRUMAN SU Non-Physician Phone Call To Patient/Provider Brief (5-10min) Non-Physician Phone Call To Patient/Provider Brief (5-10min) [phone] JULISSA WAYNE Non-Physician Phone Call To Patient/Provider Brief (5-10min) Non-Physician Phone Call To Patient/Provider Brief (5-10min) [phone] JULISSA WAYNE Non-Physician Phone Call To Patient/Provider Brief (5-10min) Non-Physician Phone Call To Patient/Provider Brief (5-10min) [phone] WENDY PARKER [facility] Screening papanicolaou smear; obtaining, preparing and conveyance of cervical or vaginal smear to laboratory 015 SHOLA ROJAS [facility] Incision And Drainage Of Skin Absce Incision And Drainage Of Skin Abscess [phone] ANDRIA MATHIS 1/2cm incision to relieve pressure and purulence. Consented and tolerated well. 1cc lidocaine used to anesthetize area. Less than ml ebl. 1/2cc purulent drainage and addtn'l ml of serous fluid. Cx taken prior to this visit so not sent. Tolerated well. Hemostatic. Gauze applied with sterigel. [facility] Non-Physician Phone Call To Patient/Provider Brief (5-10min) Non-Physician Phone Call To Patient/Provider Brief (5-10min) [phone] JULISSA WAYNE Corticosteroids Injection Intrabursal Corticosteroids Injection Intrabursal [phone] MODESTO SEYMOUR Incision And Drainage Of Absce Thoracic Spine Incision And Drainage Of Abscess Thoracic Spine [phone] KALIN SELLERS [facility] Non-Physician Phone Call To Patient/Provider Brief (5-10min) Non-Physician Phone Call To Patient/Provider Brief (5-10min) [phone] JULISSA WAYNE [facility] Non-Physician Phone Call To Patient/Provider Brief (5-10min) Non-Physician Phone Call To Patient/Provider Brief (5-10min) [phone] JULISSA WAYNE [facility] Non-Physician Phone Call To Patient/Provider Brief (5-10min) Non-Physician Phone Call To Patient/Provider Brief (5-10min) [id number] LVMICAELAWILDER MAYER [facility] Non-Physician Phone Call To Patient/Provider Brief (5-10min) Non-Physician Phone Call To Patient/Provider Brief (5-10min) [id number] JULISSA WAYNE [facility] Non-Physician Phone Call To Patient/Provider Brief (5-10min) Non-Physician Phone Call To Patient/Provider Brief (5-10min) [id number] JULISSA WAYNE [facility] Skin Test Anergy Tuberculin Intradermal Skin Test Anergy Tuberculin Intradermal [id number] YOLANDA BROWN [facility] Immunization Administration By Injection, One Vaccine Immunization Administration By Injection, One Vaccine [id number] YOLANDA BROWN [facility] Tdap Vaccine Seven Years Of Age And Above Tdap Vaccine Seven Years Of Age And Above [id number] YOLANDA BROWN [facility] Non-Physician Phone Call To Patient/Provider Brief (5-10min) Non-Physician Phone Call To Patient/Provider Brief (5-10min) [id number] JULISSA WAYNE [facility] Influenza Split Virus Vaccine 0.5mL Dosage Intramuscular 009 DAVID WYMAN [facility] Immunization Administration By Injection, Each Additional Vaccine 009 DAVID WYMAN [facility] Hepatitis A And Hepatitis B (Intramuscular Use) Adult Dosage Hepatitis A And Hepatitis B (Intramuscular Use) Adult Dosage [id number] DAVID WYMAN [facility] Immunization Administration By Injection, One Vaccine Immunization Administration By Injection, One Vaccine [id number] 009 DAVID WYMAN [facility] Cerumen Removal Right Ear Irrigation Incomplete 008 BRANDT BRAVO CPT [facility] ECG 12-Lead ECG 12-Lead [id number] LUISA HARRIS [facility] Skin Test Anergy Tuberculin Intradermal Skin Test Anergy Tuberculin Intradermal [id number] ADRIANA MONTANA [facility] Immunization Administration By Injection, Each Additional Vaccine 007 ADRIANA MONTANA [facility] Hepatitis A And Hepatitis B (Intramuscular Use) Adult Dosage Hepatitis A And Hepatitis B (Intramuscular Use) Adult Dosage [id number] ADRIANA MONTANA [facility] Immunization Administration By Injection, One Vaccine Immunization Administration By Injection, One Vaccine [id number] ADRIAAN MONTANA [facility] Osteopathic Manip Treatment (OMT) 3-4 Body Regions Involved Osteopathic Manip Treatment (OMT) 3-4 Body Regions Involved [id number] 006 SHERWIN SEO [facility] Screening papanicolaou smear; obtaining, preparing and conveyance of cervical or vaginal smear to laboratory 006 REUBEN MOSES [facility] Cerumen Removal 005 MICHAEL URRUTIA [facility] Non-Physician Phone Call To Patient/Provider Brief (5-10min) Non-Physician Phone Call To Patient/Provider Brief (5-10min) [id number] PAULINE GARCIA [facility] ECG 12-Lead With Interpretation And Report ECG 12-Lead With Interpretation And Report [id number] ANTHONY PAZ [facility] Non-Physician Phone Call To Pt/Provider Intermed (11-20 min) Non-Physician Phone Call To Pt/Provider Intermed (11-20 min) [id number] CHARITY SERVIN [facility] Social History Combined list of available smoking, tobacco, and other social history from Department of Defense and Veterans Affairs facilities. Social History Type Response Date Comment Sourc e This section is an empty social history section. [facility] Advance Directives List of completed, amended, or rescinded Advance Directives on record at Department of Veterans Affairs facilities. An actual copy of the Directive is not included. Date Advance Directive Provider Source 08/16/1995 ADVANCE DIRECTIVE ALEXANDER MADDEN [facility]
--- OUTSIDE RECORDS SUMMARY | 2024-05-09 07:11 | XMS_ITS | Clinical Summary ---
Author Organization [facility] Address [facility] [place] [address] Care Team Providers Care Concrete Engineer Name Role Phone Kirit Page Primary Care Provider [phone] Allergies Active Allergy Reactions Criticality Noted Date Comments Penicillins Unknown 03/11/2020 Medications pantoprazole EC 40 MG tablet Take 1 tablet by mouth daily. 0 Active sertraline 100 MG tablet Take 1 tablet by mouth daily. 0 Active simvastatin 20 MG tablet Take 1 tablet by mouth daily. 0 Active lisinopril 5 MG tablet Take 0.5 tablets (2.5 mg total) by mouth daily. 0 Active potassium chloride CR 10 MEQ Tab CR tablet Take 10 mEq by mouth 2 (two) times daily. Active traMADol 50 MG tablet Take 50 mg by mouth every 6 (six) hours as needed for Pain. Active aspirin 325 MG tablet Take 325 mg by mouth daily. Active dicyclomine 10 MG capsule Take 1 capsule (10 mg total) by mouth 4 (four) times daily as needed. 40 capsule 1 Active ondansetron 4 MG disintegrating tablet Take 1 tablet (4 mg total) by mouth every 8 (eight) hours as needed for Nausea. 20 tablet 1 Active Active Problems Problem Noted Date Diagnosed Date Abnormal electrocardiogram 03/11/2020 Palpitations Dyspnea Essential hypertension Family History Medical History Relation Comments CABG Maternal Aunt Heart Disease Maternal Grandmother Cancer Mother Relation Status Comments Brother 1 Alive Brother 2 Alive Father (Age 70) Maternal Aunt Maternal Grandfather (Age 93) Maternal Grandmother (Age 64) Mother (Age 66) Paternal Grandfather (Age 82) Paternal Grandmother (Age 93) Sister Alive Social History Tobacco Use Types Packs/Day Years Used Date Smoking Tobacco: Never Smokeless Tobacco: Never Alcohol Use Standard Drinks/Week Comments Not Currently 0 (1 standard drink = 0.6 oz pur e alcohol) Comments Unknown Sex and Gender Information Value Date Recorded Sex Assigned at Not on file Legal Sex Female 4:33 PM CDT Gender Identity Not on file Sexual Orientation Not on file Last Filed Vital Signs Vital Sign Reading Time Taken Comments Blood Pressure 110/70 03/27/2020 1:57 PM ACUTE CARE SURGEON Pulse 85 03/27/2020 1:57 PM ACUTE CARE SURGEON Temperature 36.4 C (97.6 F) 03/27/2020 11:20 AM ACUTE CARE SURGEON Respiratory Rate 17 03/27/2020 1:57 PM ACUTE CARE SURGEON Oxygen Saturation 100% 03/27/2020 1:57 PM ACUTE CARE SURGEON Inhaled Oxygen Concentration - - Weight 65.8 kg (145 lb) 03/27/2020 11:20 AM ACUTE CARE SURGEON Height 157.5 cm (5' 2 ) 03/27/2020 11:20 AM ACUTE CARE SURGEON Body Mass Index 26.52 03/27/2020 11:20 AM ACUTE CARE SURGEON Plan of Treatment Health Maintenance Due Date Last Done Comments Colorectal Cancer Screening Colonoscopy (10 Years) 1955 Hepatitis C 12/05/1973 DTaP, Tdap and Td Vaccines ( 1 - Tdap) 12/05/1974 Mammogram Screening 1995 Zoster Vaccines (1 of 2) 12/05/2005 Dexa Scan (General) 12/05/2020 Pneumococcal Vaccine: 65+ Ye ars (1 of 1 - PCV) 12/05/2020 COVID-19 Vaccine (2023-2 5 season) 2023 Influenza Adult (#1) 2023 RSV Immunization or 60+ Years (1 - 1-dose 75+ series) 12/05/2030 Meningococcal B Vaccine Aged Out No l onger eligible based on patient's age to complete this topic Meningococcal Vaccine Aged Out No elizabeth elli eligible based on patient's age to complete this topic RSV Immunizations Under 20 Months Aged Out No longer eligible based on patient's age to complete this topic Additional Health Concerns Infection Onset Date Last Indicated 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
[2024-05-09 07:17] LABS: Add Urine Microscopic? YES; Appearance Urine Clear (Clear); Bilirubin Urine Negative (Negative); Blood Urine Negative (Negative); Color Urine Light Yellow (Yellow); Glucose Urine UA Negative (Negative); Ketones Urine Negative (Negative); Leukocyte Esterase Ur 2+ (Negative); Nitrate Urine Negative (Negative); Protein Urine Negative (Negative); Urobilinogen Urine 0.2 mg/dL (0.2-1.0)
[2024-05-09 07:21] LABS: Hematocrit 38.6 % (35.0-42.0); Hemoglobin 12.2 g/dL (11.7-13.8); Mean Corpuscular HGB Conc 31.6 g/dL (32-36); Mean Corpuscular Hemoglobin 32.5 pg (27.0-31.0); Mean Corpuscular Volume 102.9 fL (78.0-102.0); Mean Platelet Volume 9.6 fl (9.2-11.8); Platelet Count Result 259 K/mm3 (150-420); Red Blood Count 3.75 M/mm3 (4.20-5.40); Red Cell Distribution Width 11.9 % (11.6-14.4); White Blood Count 5.2 K/mm3 (4.8-10.8)
[2024-05-09 07:42] LABS: RBC Urine 0-2 /hpf (0-2)
[2024-05-09 07:44] LABS: Squamous Epithelial Cell Urine Few /hpf (Few)
[2024-05-09 07:50] LABS: Bacteria Urine Trace /hpf
[2024-05-09 08:28] LABS: Alanine Aminotransferase 28 U/L (14-59); Albumin Level 4.3 g/dL (3.4-5.0); Alkaline Phosphatase 97 U/L (46-116); Anion Gap 14 mmol/L (4-12); Aspartate Amino Transferase 26 U/L (15-37); Bilirubin,Total 0.8 mg/dL (0.00-1.00); Blood Urea Nitrogen 20 mg/dL (7-18); Calcium 9.3 mg/dL (8.5-10.1); Carbon Dioxide 24 mmol/L (21-32); Chloride 104 mmol/L (98-108); Cholesterol 201 mg/dL (0-200); Estimated Glomerular Filt Rate 42; Glucose 92 mg/dL (70-99); HDL Direct 82 mg/dL (40-60); LDL Cholesterol Calculated 88 mg/dL (<130); Osmolality Calculated 296 mOsm/kg (285-295); Potassium 4.7 mmol/L (3.5-5.1); Sodium 142 mmol/L (136-145); Thyroid Stimulating Hormone 2.38 uIU/mL (0.36-3.74); Total Protein 7.7 g/dL (6.4-8.2); Triglycerides 154 mg/dL (0-150)
== END 2024-05-09 07:05 | disposition home or self-care (01) ==
LOC: CHSLAB 07:06
PROVIDERS: PCP Internal Medicine; Visit Provider Internal Medicine
DX: I10 Essential (primary) hypertension (principal); E78.5 Hyperlipidemia, unspecified
CPT/HCPCS: 36415; 80053; 80061; 81001; 84443; 85027

== ENCOUNTER 2024-11-02 06:56 | Outpatient (CLI) | payer MEDICARE, OTHER, SELFPAY ==
--- OUTSIDE RECORDS SUMMARY | 2024-11-02 06:59 | XMS_ITS | Continuity of Care Document ---
Author Name [facility] Organization [facility] Care Team Providers Care Inspection Manager Name Role Phone [facility] Unavailable Unavailable Problems [...] URINARY TRACT INFECTIONS Active 02/12/19 95 Condition [facility] Active 08/13/18 95 Condition July 17, 1995 Entered By: MIKE BAUTISTA Comment: PAP NORMAL - MAMMOGRAM NORMAL [facility] [place] Inactive 07/13/18 95 Condition 07/13/1994 July 17, 1995 Entered By: MIKE BAUTISTA Comment: INPACTION [facility] APPENDECTOMY Active 03/15/18 70 Condition [facility] Reflux Esophagitis Active Condition [facility] UGI Active Condition [facility] CELLULITIS OF THE RIGHT RING FINGER Active Condition [facility] SACROILIITIS Active Condition DoD BURSITIS TROCHANTERIC Active Condition DoD HYPERLIPIDEMIA Active Condition DoD diarrhea Inactive Condition DoD visit for: issue repeat prescription Inactive Condition [facility] Outpatient Physician Consultation Active Condition DoD SPINAL STENOSIS Active Condition DoD DEPRESSION Active Condition DoD SKIN ABSCESS Inactive Condition DoD visit for: laboratory Inactive Condition [facility] Mammogram Screening Inactive Condition DoD CERVICALGIA Active Condition DoD Vaccines Prophylactic Need Against DTP Inactive Condition DoD ESOPHAGEAL REFLUX Active Condition DoD NORMAL ROUTINE HISTORY AND PHYSICAL ADULT (18-65) Inactive Condition DoD numbness (hypesthesia) Active Condition DoD PIGMENTED NEVUS Inactive Condition DoD CONSTIPATION Inactive Condition DoD SEBORRHEIC KERATOSIS Active Condition DoD visit for: preoperative exam Active Condition DoD MENOPAUSE Active Condition DoD Laboratory Studies Active Condition DoD JOINT CREPITUS Active Condition DoD upper back pain (between shoulder blades) Active Condition DoD Vaccines Prophylactic Need Against Influenza Inactive Condition DoD Vaccines Prophylactic Need Against Combinations Of Diseases Active Condition DoD visit for: general multisystem exam Active Condition DoD BUNION Active Condition DoD CHRONIC MAJOR DEPRESSION Active Condition DoD BREAST LUMP OR MASS LEFT Active Condition DoD visit for: administrative purpose Inactive Condition need annual mammo DoD CELLULITIS OF THE LEFT BUTTOCK Inactive Condition Resolving. Cont Bactrim DS with warm compresses and drsg changes. Soak in sitz baths and keep clean. Pt often has vag yeast infection with abx, will give diflucan prn for s/sx of such. To use naprosyn OTC for pain with vicodin for break through. To RTC next week if not fully resolved or sooner if worsens. DoD STYE (HORDEOLUM EXTERNUM) Active Condition DoD OTITIS EXTERNA Inactive Condition DoD ESOPHAGITIS CHRONIC REFLUX Active Condition Has been on P PI for 10 years. Scheduled motrin has likely exacerbated gastritis. Will refer to GI for EGD. Will stop motrin and try switching to tramadol. Will increase nexium to 40 qd. DoD MENORRHAGIA PERIMENOPAUSAL Active Condition Will try proz ac for hot flashes and titrate up as needed. RTc in 3-4 weeks. DoD shortness of breath Active Condition Resolved without continuing sx. Would consider PFTs in future if returns or if HILLMAN develops. Discussed exercise regimen--to start. Discussed wt loss. DoD LUMBAR RADICULOPATHY L5 Active Condition Per neurosurgery. [facility] ALLERGIC RHINITIS Active Condition We ll controlled with Zytrec. DoD SCIATICA Active Condition MRI findin gs suggestive for nerve root impingement at L5-S1 level.Will consult neurosurgery to consider epidural steroid injections vs surgical interventionF/U in DEC or JAN DoD HYPERTENSION (SYSTEMIC) Active Condition Doing well on HCTZ 12.5 DoD sudden redness of the skin (flushing) Active Condition Has noticed an improvment on Prozac. Will continue and see back in one month. DoD visit for: screening malignant neoplasm colon Inactive Condition Consult placed for colonoscopy. DoD Blood Pressure Isolated Elevated Inactive Condition Normal on re-check. Likely elevated secondary to anxiety prior to exam. DoD DERMATOPHYTOSIS TINEA PEDIS Inactive Condition Will treat with Nizorla Cream. DoD joint pain, localized in the knee Active Condition Likely mild OA. Will order plain films to r/o bony lesions. DoD visit for: screening exam malignant neoplasm breast Inactive Condition Mammogram ordered. [facility] ROUTINE GYNECOLOGICAL EXAM WITH CERVICAL PAP SMEAR Active Condition PAP completed. Patient was uncomfortable [...] PPD also needed to complete form. DoD OSTEOARTHRITIS Active Condition See a ros. Pt warned of the signs of serotonin syndrome with combo of tramadol and prozac. She will discontinue immediately if signs occur. If unable to tolerate pain of OA with combo of tylenol and tramadol, will consider naprosyn or low dose celebrex if no ulcer found on EGD. DoD CARPAL TUNNEL SYNDROME Active Condition Will get a referal to ortho to discuss surgical options. [facility] Preventive Medicine Estab Patient Checkup Adult 40-64 Inactive Condition Will encourage Ca and Vit D and consideration of CT bone density per Dr Urrutia at next visit. In addition, she will have lipid drawn within next year as most recent is normal from 1.5 years ago. She will also schedule screening colonoscopy for when she tu DoD MENORRHAGIA Active Condition Given ag e, menopause is [...] to help with fibrocystic breast pain. DoD CERUMEN IMPACTION Inactive Condition Re ferred to ENT through [facility] for stenotic appearing TM's. Suspect patient's subjective change in hearing is from cerumen impaction only. Exam limited secondary to inflammation from procedure. Consider regular cerumen softening as home therapy. DoD Allergies, Adverse Reactions, Alerts Combined list of allergies from Department of Defense and Veterans Affairs facilities. It does not include entries that were removed or entered in error. Substance Category Reaction Severity Reaction type Status Date Reported Comments Source HEMOPAD (MICROFIBRILL AR COLLAGEN) Drug allergy (disorder) Unknown active [address] [place] [address] Chris [facility]ERS ([facility]) MACRODANTIN Drug allergy (disorder) Unknown active 3 [place] [address] MICROFIBRILLA R COLLAGEN Drug allergy (disorder) Unknown active [address] [place] [address] Chris RIVERS ([facility]) NITROFURANTOI N Propensity to adverse reactions to drug (finding) HIVES active 6 [facility] PENICILLIN Propensity to adverse reactions to drug (finding) unknown active 6 [facility] PENICILLIN-G RELATED PENICILLINS Drug allergy (disorder) Other: unknown active [address] [facility] PENICILLINS Drug allergy (disorder) Unknown active [address] [place] [address] Chris RIVERS ([facility]) Immunizations Combined list of available immunizations from the Department of Defense and Veterans Affairs facilities. Immunization Series Date Given Administered By Site Reaction Lot Number CVX Code Drug Purchasing Internship Status Comments Source Influenza, injectable, MDCK, preservative free, quadrivalent 2019 ILYA HERNÁNDEZ () Not Given Influenza , injectabl e, MDCK, preservat maria guadalupe free, quadrival ent DoD influenza, injectable, quadrivalent, preservative free 2018 ILYA [...] derivative solution, intradermal 1 2010 Unknown, Provider [id number] 96 [employer] Pasteur ([facility]) complet ed tuberculi n skin test; purified protein derivativ e solution, intraderm al DoD tetanus toxoid, reduced diphtheria toxoid, and acellular pertu is vaccine, adsorbed 1 2010 Unknown, Provider [id number] 115 [facility] ([facility]) complet ed tetanus toxoid, reduced diphtheri a toxoid, and acellular pertussis vaccine, adsorbed DoD influenza virus vaccine, split virus (incl. purified surface antigen)-reti red CODE 1 2008 Unknown, Provider [id number] 15 [employer]i Pasteur ([facility]) complet ed influenza virus vaccine, split virus (incl. purified surface antigen)- retired CODE DoD influenza virus vaccine, split virus (incl. purified surface antigen)-reti red CODE 1 2008 Unknown, Provider [id number] 15 [employer]i Pasteur ([facility]) complet ed influenza virus vaccine, split virus (incl. purified surface antigen)- retired CODE DoD hepatitis A and hepatitis B vaccine 3 2008 Unknown, Provider [id number] 104 [facility] ([facility]) complet ed hepatitis A and hepatitis B vaccine DoD tuberculin skin test; purified protein derivative solution, intradermal 1 2006 Unknown, Provider [id number] 96 [employer] Pasteur ([facility]) complet ed tuberculi n skin test; purified protein derivativ e solution, intraderm al DoD hepatitis A and hepatitis B vaccine 2 2006 Unknown, Provider [id number] 104 [facility] ([facility]) complet ed hepatitis A and hepatitis B vaccine DoD influenza virus vaccine, split virus (incl. purified surface antigen)-reti red CODE 1 2005 Unknown, Provider [id number] 15 [facility] ([facility]) complet ed influenza virus vaccine, split virus (incl. purified surface antigen)- retired CODE DoD hepatitis A and hepatitis B vaccine 1 2005 Unknown, Provider [id number] 104 [facility] ([facility]) complet ed hepatitis A and hepatitis B vaccine DoD tetanus and diphtheria toxoids, adsorbed, preservative free, for adult use (2 Lf of tetanus toxoid and 2 Lf of diphtheria toxoid) 1 2002 Unknown, Provider [id number] 09 [employer] Pasteur ([facility]) complet ed tetanus and diphtheri a toxoids, adsorbed, preservat maria guadalupe free, for adult use (2 Lf of tetanus toxoid and 2 Lf of diphtheri a toxoid) DoD influenza virus vaccine, whole virus 1 2002 Unknown, Provider [id number] 16 [employer] Pasteur ([facility]) complet ed influenza virus vaccine, whole virus DoD influenza virus vaccine, whole virus 1 2000 Unknown, Provider [id number] 16 [employer] Pasteur ([facility]) complet ed influenza virus vaccine, whole virus [...] ADM Date DC Date Status Disposition Source [address] [place] [address] Chris [facility]ERS ([facility] tt [employer] [facility] [employer] Tm Blue) OUTPATIENT [id number] ear prob MICHAEL URRUTIA 07/31 Released w/o Limitations [address] [place] [address] Chris [facility] [facility] [employer] Tm Blue) [address] [place] [address] [employer] [facility] Fam Res Tm Green) OUTPATIENT [id number] lump on breast [facility] CELIO J 08/04 Released w/o Limitations [address] [place] [address] [employer] [facility] [employer] Fam Res Tm Green) [address] [place] [address] [employer] [facility] [employer] Tm Blue) TELE CONSULT [id number] Rx Request MICHAEL URRUTIA 01/[address] [place] [address] Chris [facility]S cott [facility] [employer] Tm Blue) [address] [place] [address] [employer] [facility] [employer] Tm Blue) TELE CONSULT [id number] Rx Request MICHAEL URRUTIA 04/[address] [place] [address] [employer] [facility] [facility] [employer] Tm Blue) [address] [place] [address] [employer] [facility] [employer] Tm Blue) OUTPATIENT [id number] annual pap--YOLANDA Morales se 05/26 Released w/o Limitations [address] [place] [address] [employer] ([facility]S cott [facility] [employer] Tm Blue) [address] [place] [address] [employer] [facility] [employer] [facility] [employer] Tm Blue) OUTPATIENT [id number] ZACH greer MICHAEL J 10/19 Released w/o Limitations [facility] [employer] ([facility])(S cott OF [employer] Tm Blue) [employer] ([facility] [employer] [facility] [employer] Fam [employer] Tm Green) OUTPATIENT [id number] [facility] ENT PHYS/ME BUNNY MCRAE 02/18 Released w/o Limitations [facility] [employer] ([facility])(S cott OF Fam Res Tm Green) [facility] [employer] ([facility] [employer] [facility] [employer] Tm Blue) OUTPATIENT [id number] IMMUNIZ ATIONS ADRIANA MONTANA David 04/06 Released w/o Limitations [facility] [employer] ([facility])(S cott OF [employer] Tm Blue) [address] [place] [address] [employer] ([facility] [employer] [employer] F[employer] Tm Green) OUTPATIENT [id number] TB CELESTINE Bradford 04/08 Released w/o Limitations [facility] [employer] ([facility]S cott [facility] [employer] Fam Res Tm Green) [address] [place] [address] [employer] [facility] [employer] [facility] [employer] Fam Res Tm Green) OUTPATIENT [id number] ANNUAL PAP. PHONE:[phone]*H BUNNY HADDAD 07/14 Released w/o Limitations [address] [place] [address] [employer] ([facility])(S cott OF Fam Res Tm Green) [address] [place] [address] [employer] ([facility] [employer] Fam [employer] Tm Green) TELE CONSULT [id number] BUNNY Perez 09/[address] [place] [address] [employer] [facility] [employer] [facility] [employer] Fam Res Tm Green) [address] [place] [address] [employer] [facility] [employer] [facility] [employer] Fam [employer] Tm Green) OUTPATIENT [id number] BUNNY Horne 10/29 Released w/o Limitations [address] [place] [address] Group [employer] ([facility])(S cott OF Fam Res Tm Green) [address] [place] [address] [employer] ([facility] [employer] Fam Res Tm Green) OUTPATIENT [id number] BUNNY ZUNIGA 11/16 Released w/o Limitations [address] [place] [address] Group [employer] ([facility]S cott [facility] [employer] Fam Res Tm Green) [address] [place] [address] Chris [facility] ([facility] [employer] Fam Res Tm Green) TELE CONSULT [id number] SUNDAYSHERWIN Rashid 01/[address] [place] [address] Chris [facility] [employer] [facility] [employer] Fam Res Tm Green) [address] [place] [address] Chris [facility] ([facility] [employer] Fam [employer] Tm Green) OUTPATIENT [id number] DANA PONCE 04/06 Released w/o Limitations [address] [place] [address] Chris [facility] [employer] F[employer] Tm Green) [address] [place] [address] Chris [facility] [employer] Tm Blue) OUTPATIENT [id number] intermi ttent SOB LUISA HARRIS 05/03 Released w/o Limitations [address] [place] [address] Chris [facility]S [facility] [employer] [facility] [employer] Tm Blue) [address] [place] [address] Chris [facility] [employer] [facility] [employer]am [employer] Tm Green) OUTPATIENT [id number] f/u from hosp admissi on for sob/rosina nge out heart ISABELLA DUKE 05/15 Released w/o Limitations [address] [place] [address] Chris [facility] ([facility]S cott [employer] [employer] F[employer] Tm Green) [address] [place] [address] Chris [facility] [employer] Fam [employer] Tm Green) OUTPATIENT [id number] f/u Prozac, hot flashes , hosp visit DANA PONCE 06/16 Released w/o Limitations [address] [place] [address] Chris [facility] ([facility]S cott [facility] [employer] Fam Res Tm Green) [address] [place] [address] [facility]Sco tt Internal Medicine ) OUTPATIENT [id number] [phone] RIGHT EAR PAIN-SW OLLEN,S HARP and DULL PAIN (CROSS BOOK FMP) BRANDT BRAVO CPT 08/21 Released w/o Limitations [address] [place] [address] Chris [facility]ERS ([facility])(S cott Interna l Medicin e Tm) [address] [place] [address] Chris [facility]Sco tt Internal Medicine Tm) OUTPATIENT [id number] er fol insect bite butt/fo l ear pain saw ashish wednesday AYAZ TURPIN 08/23 Released w/o Limitations [address] [place] [address] Chris [facility]S cott Interna l Medicin e Tm) [address] [place] [address] Chris RUIDerik ([facility])([facility] [employer] Fam Res Tm Green) OUTPATIENT [id number] bp medicin e [phone] ISABELLA DUKE 09/01 Released w/o Limitations [address] [place] [address] Chris [facility] ([facility])(S cott [facility] [employer] Fam Res Tm Green) [address] [place] [address] [facility] [employer] ([facility])(S[facility] tt [facility] [employer] Fam Res Tm Green) OUTPATIENT [id number] lump in breast HAILEY DIAZ 11/28 Released w/o Limitations [address] [place] [address] Chris [facility] ([facility]S cott [facility] [employer] Fam [employer] Tm Green) [address] [place] [address] [facility] [employer] ([facility] [employer] Fam Res Tm Green) OUTPATIENT [id number] [facility] gonzalez and WILLY Gibson 01/10 Released w/o Limitations [address] [place] [address] Chris [facility] ([facility]S cott [facility] [employer] Fam [employer] Tm Green) [address] [place] [address] Chris [facility] Fam [employer] Tm Green) OUTPATIENT [id number] work criselda. DAVID WYMAN 03/28 Released w/o Limitations [address] [place] [address] Chris [facility]S [facility] [employer] Fam [employer] Tm Green) [address] [place] [address] Chris [facility] Fam [employer] Tm Green) OUTPATIENT [id number] F/U medicat ions, eval back pain (pt request ed date) [phone] YOLANDA LANDAVERDE 08/01 Released w/o Limitations [address] [place] [address] [facility] Fam [employer] Tm Green) [address] [place] [address] [facility] Fam Res Tm Green) TELE CONSULT [id number] Call about results YOLANDA LANDAVERDE 08/[address] [place] [address] Chris [facility] Fam [employer] Tm Green) [address] [place] [address] Chris [facility] Fam Res Tm Green) OUTPATIENT [id number] [phone] f/u eval for med refill/ med conditi on RICKEY HERNANDEZ 10/24 Released w/o Limitations [address] [place] [address] Chris RIVERS ([facility]S cott OF Fam Res Tm Green) [address] [place] [address] Chrsi GREWALB ([facility])(Sco tt OF Fam Res Tm Green) OUTPATIENT [id number] Meet prior to surgery [phone] SUSY YANEZ 02/27 Released w/o Limitations [address] [place] [address] Chris [facility] ([facility])(S cott OF Fam Res Tm Green) [address] [place] [address] Chris [facility] [employer] Tm Blue) TELE CONSULT [id number] Surgery Clearan Script - PCM Dr Diaz (seen by Dr Yanez) SUSY YANEZ 03/[address] [place] [address] Chris [facility]S cott OF [facility] Tm Blue) [address] [place] [address] Chris [facility] Fam Res Tm Green) TELE CONSULT [id number] request s HAILEY Bustamante 04/[address] [place] [address] Chris [facility]S cott OF Fam Res Tm Green) [address] [place] [address] Chris [facility] Fam Res Tm Green) OUTPATIENT [id number] f/u hot flashes , bp, etc [id number] GETACHEW DE 10/14 Released w/o Limitations [address] [place] [address] Chris [facility] ([facility]S cott OF Fam Res Tm Green) [address] [place] [address] Chris [facility] Fam Res Tm Green) OUTPATIENT [id number] Physica l [phone] HAILEY DIAZ 07/08 Released w/o Limitations [address] [place] [address] Chris [facility]S cott OF Fam Res Tm Green) [address] [place] [address] Chris [facility] Fam Res Tm Green) TELE CONSULT [id number] results of brain MRI - [phone] 8-5 m-f after 6pm [phone] CAD C JULISSA WAYNE 07/[address] [place] [address] Chris [facility] ([facility]S cott OF Fam Res Tm Green) [address] [place] [address] Chris [facility] Fam [employer] Tm Green) OUTPATIENT [id number] f/u numbnes s left side of body [phone] EMILYKARSONHAILEY M 08/05 Released w/o Limitations [address] [place] [address] Chris [employer] ([facility]S cott OF Fam Res Tm Green) [address] [place] [address] Chris [employer] ([facility] [employer] [employer] Tm Blue) OUTPATIENT [id number] Mole removal JOELLEN TYSON Clare 08/12 Released w/o Limitations [address] [place] [address] [facility] [employer] ([facility]S cott OF [employer] Tm Blue) [address] [place] [address] [facility] [employer] Tm Blue) TELE CONSULT [id number] Radiolo gist Update Recomme ndation EMILYHAILEY PERRY 08/[address] [place] [address] Chris [employer] ([facility]S cott [facility] [employer] [employer] Tm Blue) [address] [place] [address] [facility] [employer] ([facility] [employer] Fam Res Tm Green) TELE CONSULT [id number] Needs PCM to make appt for pt - Shell /[phone] MARIAJOSE LARRY 09/[address] [place] [address] [facility] Fam Res Tm Green) [address] [place] [address] [facility] [employer] Fam Res Tm Green) TELE CONSULT [id number] needs records , etc. for referra l - Shell - [phone] before 1300 - tsg MARIAJOSE LARRY 09/[address] [place] [address] [facility] [employer] ([facility]S cott OF Fam Res Tm Green) [address] [place] [address] [facility] [employer] ([facility] tt [facility] [employer] Fam Res Tm Green) OUTPATIENT [id number] physcia l [phone] YOLANDA BROWN 10/13 Released w/o Limitations [address] [place] [address] [employer] ([facility])(S cott OF Fam Res Tm Green) [address] [place] [address] [employer] ([facility])(Sco tt [employer] FAMRES Tm Blue) OUTPATIENT [id number] TB WENDY Aaron 10/15 Released w/o Limitations [address] [place] [address] [employer] ([facility])(S cott [employer] FAM[employer] Tm Blue) [address] [place] [address] [employer] ([facility])(Sco tt [employer] Fam Res Tm Green) TELE CONSULT [id number] YOLANDA BROWN 10/[address] [place] [address] [facility]S cott [employer] Fam Res Tm Green) [address] [place] [address] [employer] ([facility])(Sco tt [employer] [facility] [employer] Fam Res Tm Green) TELE CONSULT [id number] request ing kendra crockett for gurdeep nerve [phone] YOLANDA BROWN 11/[address] [place] [address] Chris [facility]S cott [employer] [facility] [employer] Fam Res Tm Green) [address] [place] [address] [facility]Sco tt [employer] [facility] [employer] Fam Res Tm Green) TELE CONSULT [id number] kendra Brown cad tlt JULISSA WAYNE 02/[address] [place] [address] Chris [facility]S cott [employer] Fam Res Tm Green) [address] [place] [address] Chris [facility])(Sco tt [employer] Fam Res Tm Green) TELE CONSULT [id number] Notes Entered by: HUMBERTO SIMS 11 May 2011 1341 ------- ------- ------- ------- -- Kendra crooks on [employer] cad tlt JULISSA WAYNE 05/[address] [place] [address] Chris [employer]S cott [employer] [employer] Fam Res Tm Green) [address] [place] [address] [facility]Sco tt [employer] [facility] [employer] Fam Res Tm Green) TELE CONSULT [id number] Notes Entered by: HUMBERTO SIMS 14 Sep 2011 1348 ------- ------- ------- ------- -- F/u for medicat ions/MR Jerrell Denise cad tlt MODESTO SEYMOUR 09/[address] [place] [address] [employer] ([facility])(S cott [facility] Fam Res Tm Green) [address] [place] [address] Chris [facility]Sco tt [employer] [employer] FAMRES Tm Blue) OUTPATIENT [id number] f/u: lab review and med refill UMER RUIZ 10/06 Released w/o Limitations [address] [place] [address] [employer] ([facility])(S cott [employer] [employer] FAM[employer] Tm Blue) [address] [place] [address] Chris [facility]Sco tt [employer] [facility] [employer] Fam Res Tm Green) TELE CONSULT [id number] Notes Entered by: Caty WAYNE 07 Oct 2011 0929 ------- ------- ------- ------- -- Porsha crockett, contact #s: birx- , [phone] JULISSA WAYNE 10/[address] [place] [address] [facility]S cott [employer] [facility] Fam Res Tm Green) [address] [place] [address] [facility]Sco tt [employer] [facility] [employer] FAMRES Tm Blue) TELE CONSULT [id number] Notes Entered by: LEANN LORD RET 30 Oct 2011 1409 ------- ------- ------- ------- -- Lab results MODESTO SEYMOUR 10/[address] [place] [address] Chris [facility]S cott [employer] [facility] [employer] FAM[employer] Tm Blue) [address] [place] [address] Chris [facility]Sco tt [employer] [facility] [employer] Fam Res Tm Green) TELE CONSULT [id number] Notes Entered by: SAHIL COVARRUBIAS 29 Feb 2012 0940 ------- ------- ------- ------- -- Spider Bite ?/Evita r/ JULISSA WAYNE 02/[address] [place] [address] [facility]S cott [facility] Fam Res Tm Green) [address] [place] [address] [facility]Sco tt [employer] [facility] [employer] Fam Res Tm Green) OUTPATIENT [id number] red swollen area on her back UMER RUIZ 03/01 Released w/o Limitations [address] [place] [address] Chris [facility]S cott [employer] [facility] Fam Res Tm Green) [address] [place] [address] [facility]Sco tt [employer] [facility] [employer] Fam Res Tm Green) OUTPATIENT [id number] Skin abscess KALIN SELLERS 03/17 Released w/o Limitations [address] [place] [address] [employer] ([facility])(S cott [employer] Fam Res Tm Green) [address] [place] [address] [facility]Sco tt [employer] [facility] [employer] Fam Res Tm Green) OUTPATIENT [id number] f/u procedu re on [id number] [phone] VIRIDIANA ALEXANDER 03/25 Released w/o Limitations [address] [place] [address] [employer] ([facility])(S cott OF Fam Res Tm Green) [address] [place] [address] [employer] ([facility])(Sco tt [employer] [facility] [employer] Fam Res Tm Green) OUTPATIENT [id number] pain in both legs x 2 month-s ome swellin g [phone] VIRIDIANA ALEXANDER 06/28 Released w/o Limitations [address] [place] [address] [employer] ([facility])(S cott [employer] [facility] [employer] Fam Res Tm Green) [address] [place] [address] [employer] ([facility])(Sco tt [employer] [facility] [employer] Fam Res Tm Green) OUTPATIENT [id number] f/u leg pain/ depress ion VIRIDIANA ALEXANDER 07/18 Released w/o Limitations [address] [place] [address] [employer] ([facility])(S cott [employer] [facility] [employer] Fam Res Tm Green) [address] [place] [address] [facility]Sco tt [employer] [facility] [employer] FAM[employer] Tm Blue) TELE CONSULT [id number] Notes Entered by: ADARSH MCKENZIE 26 Jul 2012 1533 ------- ------- ------- ------- -- Network Results - Physica l Therapy - 3 VIRIDIANA ALEXANDER 07/[address] [place] [address] [employer] ([facility]S cott [facility] FAM[employer] Tm Blue) [address] [place] [address] [facility]co tt [employer] [facility] [employer] Fam Res Tm Green) OUTPATIENT [id number] Follow up medicat ion [id number] MODESTO SEYMOUR 09/26 Released w/o Limitations [address] [place] [address] [employer] ([facility])(S cott [employer] [facility] [employer] Fam Res Tm Green) [address] [place] [address] Chris [facility]Sco tt [employer] [facility] [employer] FAMRES Tm Blue) TELE CONSULT [id number] Notes Entered by: LEANN LORD RET 26 Sep 2012 194 ------- ------- ------- ------- -- labs MODESTO SEYMOUR 09/[address] [place] [address] Chris [facility]S [facility] FAMRES Tm Blue) [address] [place] [address] Chris [facility]co tt [employer] [facility] [employer] Fam Res Tm Green) OUTPATIENT [id number] diarrhe a x two weeks [phone] MODESTO SEYMOUR 12/22 Released w/o Limitations [address] [place] [address] Chris [facility]S [facility] Fam Res Tm Green) [address] [place] [address] [facility]co tt [employer] [facility] [employer] Fam Res Tm Green) OUTPATIENT [id number] physica l - [phone] [facility] MODESTO SEYMOUR 01/30 Released w/o Limitations [address] [place] [address] Chris [facility]S [facility] Fam Res Tm Green) [address] [place] [address] Chris [facility]Flo [facility] Fam Res Tm Green) TELE CONSULT [id number] Notes Entered by: RACHEL HARRIS 28 Mar 2013 1244 ------- ------- ------- ------- -- Test results - Mikayla Price [id number]/c [id number] 957v after 6pm MODESTO SEYMOUR 03/[address] [place] [address] Chris [facility]S [facility] Fam Res Tm Green) [address] [place] [address] Chris [facility]Sco tt [facility] Fam Res Tm Red) OUTPATIENT [id number] cough, nasal congest ion, fever over weekend [phone] POITR KLINE 06/12 Released w/o Limitations [address] [place] [address] Chris [facility]S [facility] Fam Res Tm Red) [address] [place] [address] [facility]Sco tt [facility] Fam Res Tm Red) OUTPATIENT [id number] F/u Carpal tunnel and bowel issues [phone] MODESTO SEYMOUR 06/19 Released w/o Limitations [address] [place] [address] Chris [facility]S cott [facility] Fam Res Tm Red) [address] [place] [address] Chris [facility]Sco tt [facility] Fam Res Tm Red) OUTPATIENT [id number] f/u with PCM before surgery - SHOLA ROJAS 12/05 Released w/o Limitations [address] [place] [address] Group Chris [employer]IVERS ([facility])(S [facility] Fam Res Tm Red) [address] [place] [address] Group Chris [facility] Fam Res Tm Red) OUTPATIENT [id number] medicat ion review/ refill/ SHOLA ROJAS 03/22 Released w/o Limitations [address] [place] [address] Chris [facility]S [facility] Fam Res Tm Red) [address] [place] [address] Group Chris [facility]Flo [facility] Fam Res Tm Red) TELE CONSULT [id number] Notes Entered by: Omar MIRAMONTES 27 Apr 2014 1041 ------- ------- ------- ------- -- Lipid panel results WENDY PARKER 04/[address] [place] [address] Chris [facility]ERS [facility] Fam Res Tm Red) [address] [place] [address] Chris [facility] Fam Res Tm Red) TELE CONSULT [id number] Notes Entered by: Diane JACK 03 Jul 2014 0853 ------- ------- ------- ------- -- ER FU/Mahi morris/Marcus [phone] JULISSA WAYNE 07/[address] [place] [address] Group Chris [facility]S [facility] Fam Res Tm Red) [address] [place] [address] Chris [facility] Fam Res Tm Red) OUTPATIENT [id number] f/u ER visit: right hand anthony benavides [phone] ANDRIA MATHIS 07/03 Released w/o Limitations [address] [place] [address] Group Chris [facility] Fam Res Tm Red) [address] [place] [address] Group Chris [facility]ERS [facility] FAMRES Tm Blue) OUTPATIENT [id number] Notes Entered by: Sonia DISLA 09 Jul 2014 1339 ------- ------- ------- ------- -- walk in pre est appt ANDRIA MATHIS 07/09 Released w/o Limitations [facility] Medical Group Chris [facility]S cott [facility] FAMRES Tm Blue) [facility]Flo tt [facility] Fam Res Tm Red) OUTPATIENT [id number] wwe/pap SHOLA ROJAS 07/18 Released w/o Limitations [address] [place] [address] Group Chris [facility]S cott [facility] Fam Res Tm Red) [address] [place] [address] Group Chris B [facility]Flo tt [facility] Fam Res Tm Red) TELE CONSULT [id number] Notes Entered by: Diane JACK 29 Aug 2014 0934 ------- ------- ------- ------- -- Med refill/ [place] n/[phone] WENDY PARKER 08/[address] [place] [address] Group Chris [facility]S [facility] Fam Res Tm Red) [address] [place] [address] Chris B [facility]Flo tt [facility] Fam Res Tm Red) TELE CONSULT [id number] Notes Entered by: NEEMA JOYNER 24 Sep 2014 1011 ------- ------- ------- ------- -- Bump on side JULISSA WAYNE 09/[address] [place] [address] Chris [facility]S [facility] Fam Res Tm Red) [address] [place] [address] Chris [facility]lo tt [facility] Fam Res Tm Red) OUTPATIENT [id number] bump right side [phone] ANDRIA MATHIS 09/27 Released w/o Limitations [address] [place] [address] Group Chris [facility]S [facility] Fam Res Tm Red) [address] [place] [address] Group Hcris B [facility] tt [facility] Fam Res Tm Red) TELE CONSULT [id number] Notes Entered by: FINESSE WARREN 01 Oct 2014 0818 ------- ------- ------- ------- -- Sx: Painful bump on side - [place] n - * JULISSA WAYNE 10/[address] [place] [address] Chris [facility]S [facility] Fam Res Tm Red) [address] [place] [address] Group Chris [facility])([facility] tt [facility] Fam Res Tm Red) TELE CONSULT [id number] Notes Entered by: RACHEL HARRIS 01 Oct 2014 1123 ------- ------- ------- ------- -- E.R f/u - [place] n - [phone] JULISSA WAYNE 10/[address] [place] [address] Group Chris [facility]S [facility] Fam Res Tm Red) [facility] Medical Group Chris [facility] Fam Res Tm Red) OUTPATIENT [id number] f/u ER visit: lump right side of trunk, I&D GAVI ESCAMILLA 10/02 Released w/o Limitations [address] [place] [address] Group Chris [facility]S [facility] Fam Res Tm Red) [address] [place] [address] Group Chris [facility] Fam Res Tm Red) OUTPATIENT [id number] f/u on cut on side of body [phone] WENDY PARKER 10/05 Released w/o Limitations [address] [place] [address] Group Chris [facility]S [facility] Fam Res Tm Red) [address] [place] [address] Group Chris [facility] Fam Res Tm Red) OUTPATIENT [id number] f/u cut GAVI ESCAMILLA T 10/10 Released w/o Limitations [address] [place] [address] Group Chris [facility]S [facility] Fam Res Tm Red) [address] [place] [address] Group Chris [facility] Fam Res Tm Red) OUTPATIENT [id number] tabby Dlegado, paperwo rk ANDRIA MATHIS 02/26 Released w/o Limitations [address] [place] [address] Group Chris [facility]S [facility] Fam Res Tm Red) [address] [place] [address] [employer] [facility]War rior Op Med Cln Tm A Ad) TELE CONSULT [id number] Notes Entered by: ORVILLE DECKER 21 Mar 2015 1054 ------- ------- ------- ------- -- Lab Results /Blecitlali ng-Rosi leal/2 [phone] CHARITY FIELD 03/[address] [place] [address])(W arrior Op Med Cln Tm A Ad) [address] [place] [address])(War rior Op Med Cln Tm A Ad) OUTPATIENT [id number] f/u for R arm [id number] MARYAM QUINONES 06/27 Released w/o Limitations [address] [place] [address])(W arrior Op Med Cln Tm A Ad) [address] [place] [address])(War rior Op Med Cln Tm A Ad) TELE CONSULT [id number] Notes Entered by: RICHELLE WALLS 13 Aug 2015 0808 ------- ------- ------- ------- -- Network Results -RADIOL OGY 07/25/15 MRI RT SHOULDE R LONNY CORBIN 08/[address] [place] [address])(W arrior Op Med Cln Tm A Ad) [address] [place] [address])(Med ication Refill Clinic) TELE CONSULT [id number] Notes Entered by: Omar URENA 09 Sep 2015 1550 ------- ------- ------- ------- -- Med renewal / Blemauriin g-Jasper almodovar / tld TRUMAN SU 09/[address] [place] [address])(M edicati on Refill Clinic) [address] [place] [address])(Fam ashish Med Tm B Non-AD BCC) TELE CONSULT [id number] Notes Entered by: KENDRICK RAMESH 26 Sep 2015 1526 ------- ------- ------- ------- -- Network Results ORTHOPE DICS 09/17/15 KMOSIRIS MCKEON 09/[address] [place] [address])(F amily Med Tm B Non-AD BCC) [address] [place] [address])(Med ication Refill Clinic) TELE CONSULT [id number] Notes Entered by: PEGGY LOWERY 05 Nov 2015 1426 ------- ------- ------- ------- -- Med Bridge/ Annelise almodovar/ [phone]/clm TRUMAN SU 11/[address] [place] [address])(M edsu on Refill Clinic) [address] [place] [address])(War rior Op Med Cln Tm A Ad) OUTPATIENT [id number] med renewal [id number] [phone] MARYAM QUINONES 02/23 Released w/o Limitations [address] [place] [address])(W arrior Op Med Cln Tm A Ad) [address] [place] [address])(War rior Op Med Cln Tm A Ad) TELE CONSULT [id number] Notes Entered by: JUSTIN BUNDY 09 Jul 2016 1328 ------- ------- ------- ------- -- ANIYAH Saab 07/09 Referred for Appointment [address] [place] [address])(W arrior Op Med Cln Tm A Ad) [address] [place] [address])(War rior Op Med Cln Tm A Ad) OUTPATIENT [id number] issue with neck MARYAM QUINONES 07/30 Released w/o Limitations [address] [place] [address])(W arrior Op Med Cln Tm A Ad) [address] [place] [address])(War rior Op Med Cln Tm A Ad) TELE CONSULT [id number] Notes Entered by: ARGENIS GATICA 24 Aug 2016 1444 ------- ------- ------- ------- -- Med Renewal / Annelise g-Jasper scooby / - sgj WILLIAN ABREU 08/24 Referred for Appointment [employer] [facility])(W arrior Op Med Cln Tm A Ad) [facility])(War rior Op Med Cln Tm A Ad) TELE CONSULT [id number] Notes Entered by: Lana MCWILLIAMS 19 Oct 2016 0934 ------- ------- ------- ------- -- Appt Request - ER F/U/ Blessin Yasemin one/ - AROLDO Ring 10/19 Referred for Appointment [facility])(W arrior Op Med Cln Tm A Ad) [address] [place] [address] Group [facility])(Fam ashish Med Tm B Non-AD BCC) OUTPATIENT [id number] ER f/u cyst getting bigger EDOUARD LEIJA 10/22 Released w/o Limitations [address] [place] [address] Group Chris [facility])(F amily Med Tm B Non-AD BCC) [address] [place] [address] Group Chris [facility])(Sco tt [employer] [facility] [employer] FAMRES Tm Blue) TELE CONSULT [id number] Notes Entered by: NEEMA JOYNER 30 Oct 2016 1643 ------- ------- ------- ------- -- Pt called left message to book minor procedu re appoint BRY Poon 10/30 Referred for Appointment [facility] Medical Group [facility])(S cott [facility] FAMRES Tm Blue) [address] [place] [address])(Min or Procedure Clinic) OUTPATIENT [id number] Epiderm al cyst CHARITY CARO 11/02 Released w/o Limitations [address] [place] [address] Chris B [facility]M inor Procedu re Clinic) [address] [place], [place] [address]B [facility]Min or Procedure Clinic) OUTPATIENT [id number] cyst KIKO PRATT 11/02 Released w/o Limitations [address] [place], [place] [address]B ([facility])(M inor Procedu re Clinic) [employer] [facility] ([facility])(Sco tt [employer] [employer] Fam Res Tm Green) OUTPATIENT [id number] FU Abcess Cyst KIKO PRATT 11/05 Released w/o Limitations Medical [facility] ([facility])(S cott [facility] Fam Res Tm Green) [employer] [facility] ([facility])(Sco tt [facility] Fam Res Tm Green) OUTPATIENT [id number] f/u per KALIN Reyna 11/18 Released w/o Limitations Medical [facility] ([facility])(S cott [facility] Fam Res Tm Green) [facility] Medical Group [facility])(War rior Op Med Cln Tm A Ad) OUTPATIENT [id number] Area on upper back - red/ten tim to touch/o ozing [id number] BLADIMIR RODRIGUEZ 12/10 Released w/o Limitations [facility] ([facility])(W arrior Op Med Cln Tm A Ad) [facility])(Fam ashish Med Tm B Non-AD BCC) OUTPATIENT [id number] I and D back ROSE MARIE GARDUNO JIMENEZ 12/11 Released w/o Limitations [facility] ([facility])(F amily Med Tm B Non-AD BCC) [facility] ([facility])(Fam ashish Med Tm B Non-AD BCC) OUTPATIENT [id number] cyst f/u ROSE MARIE GARDUNO JIMENEZ 12/14 Released w/o Limitations [facility] Medical Group Chris [facility] ([facility])(F amily Med Tm B Non-AD BCC) [facility] Medical Group Chris [facility])(War rior Op Med Cln Tm A Ad) OUTPATIENT [id number] Physica l w/paper work, med renewal s, STEVE ANGLIN 02/15 Released w/o Limitations [address] [place] [address] Group Chris [facility] ([facility])(W arrior Op Med Cln Tm A Ad) [facility] Medical Group [facility] ([facility])(War rior Op Med Cln Tm A Ad) TELE CONSULT [id number] Notes Entered by: SILVA MONTES 16 Mar 2017 1015 ------- ------- ------- ------- -- Med nelly /bre leal/Marcus 17.710. 7957 ANIYAH Rees 03/16 Referred for Appointment [address] [place] [address])(W arrior Op Med Cln Tm A Ad) [address] [place] [address])(War rior Op Med Cln Tm A Ad) TELE CONSULT [id number] Notes Entered by: JUSTIN BUNDY 13 Apr 2017 0917 ------- ------- ------- ------- -- Med MARYAM QUINONES 04/[address] [place] [address])(W arrior Op Med Cln Tm A Ad) [address] [place] [address])(Fam ashish Med Tm B Non-AD BCC) OUTPATIENT [id number] Notes Entered by: DANILO LEIJA 25 Jun 2017 0657 ------- ------- ------- ------- [facility] EDOUARD LEIJA 06/25 Released w/o Limitations [address] [place] [address])(F amily Med Tm B Non-AD BCC) [address] [place] [address])(War rior Op Med Cln Tm A Ad) OUTPATIENT [id number] [facility] from [facility] EDOUARD Marcos 08/18 Released w/o Limitations [address] [place] [address])(W arrior Op Med Cln Tm A Ad) [address] [place] [address])(Fam ashish Med Tm B Non-AD BCC) TELE CONSULT [id number] Notes Entered by: DANILO LEIJA 20 Aug 2017 0705 ------- ------- ------- ------- -- LAB RESULTS ANIYAH DIAZ 08/20 Referred for Appointment [facility])(F amily Med Tm B Non-AD BCC) [facility])(War rior Op Med Cln Tm A Ad) OUTPATIENT [id number] Virtual : KIKO Holland 10/04 Released w/o Limitations [facility])(W arrior Op Med Cln Tm A Ad) [facility])(War rior Op Med Cln Tm A Ad) TELE CONSULT [id number] 3 Notes Entered by: FINESSE WARREN 25 Feb 2018 1023 ------- ------- ------- ------- -- Bridge Rx - Darron - - tsg NINI GORMAN 02/25 Referred for Appointment [facility])(W arrior Op Med Cln Tm A Ad) [facility] Medical [facility])(War rior Op Med Cln Tm A Ad) OUTPATIENT [id number] annual check up KIKO MAI 03/01 Released w/o Limitations [facility])(W arrior Op Med Cln Tm A Ad) [facility] Medical [facility])(War rior Op Med Cln Tm A Ad) OUTPATIENT [id number] left ear wax KIKO MAI 07/28 Released w/o Limitations [facility])(W arrior Op Med Cln Tm A Ad) [facility] Group [facility])(War rior Op Med Cln Tm A Ad) OUTPATIENT [id number] RX renewal [phone] JULYLIDIA 10/06 Released w/o Limitations [address] [place] [address])(W arrior Op Med Cln Tm A Ad) [facility])(War rior Op Med Cln Tm A Ad) OUTPATIENT [id number] med renewal s KIKO MAI 03/01 Released w/o Limitations [address] [place] [address] Group [facility]W arrior Op Med Cln Tm A Ad) [address] [place] [address] Group [facility]War rior Op Med Cln Tm A Ad) OUTPATIENT [id number] RX eval,21 [phone] phone call apptCRISTIANO STEPHEN M 09/20 Released w/o Limitations [address] [place] [address] Group [employer] [facility]W arrior Op Med Cln Tm A Ad) [address] [place] [address] Group [employer] [facility]Sco tt [employer] [facility] [employer] [facility] Tm Blue) TELE CONSULT [id number] Notes Entered by: FINESSE WARREN 30 Jan 2020 0903 ------- ------- ------- ------- -- [facility] keyur Yvette price - - [facility] PAULINE GARCIA 01/29 Referred for Appointment [address] [place] [address] Group [facility])(S cott [employer] [facility] [employer] Tm Blue) [address] [place] [address] Group [employer] [facility]Sco tt [employer] [facility] [employer] Tm Blue) OUTPATIENT [id number] *In Person annual chk-up/ meds renewal ANTHONY PAZ 02/22 Released w/o Limitations [address] [place] [address] Group [employer] [facility]S cott [employer] [employer] Tm Blue) [address] [place] [address] Group [employer] [facility]Sco tt [employer] [facility] [employer] Tm Blue) TELE CONSULT [id number] Notes Entered by: ANTHONY PAZ 01 Mar 2020 1002 ------- ------- ------- ------- -- F/U Lab Results ANTHONY PAZ 03/01 Referred for Appointment [address] [place] [address] Group [employer] [facility]S cott [employer] [employer] Tm Blue) [address] [place] [address] [employer] [facility]Sco tt [employer] [facility] [employer] Tm Blue) TELE CONSULT [id number] Notes Entered by: VERONICA IGLESIAS 28 Mar 2020 0830 ------- ------- ------- ------- -- SX Stomach pain/ Phone Call Request / Yvette price/ [phone] CHARITY SERVIN 03/28 Advice Assessment [address] [place] [address])(S cott [employer] [facility] [employer] Tm Blue) [address] [place] [address])(Sco tt [employer] [facility] [employer] Tm Blue) TELE CONSULT [id number] Notes Entered by: BARB ROLON 02 Apr 2020 1206 ------- ------- ------- ------- -- med refill/ coopers tein/21 [phone] CHARITY Carnes 04/02 Referred for Appointment [address] [place] [address])(S cott [employer] [facility] [employer] Tm Blue) [address] [place] [address])(Sco tt [employer] [facility] [employer] Tm Blue) OUTPATIENT [id number] FTF-Fol low up after Dc Nursing facilit [phone] ANTHONY PAZ 06/10 Released w/o Limitations [address] [place] [address])(S cott [employer] [facility] [employer] Tm Blue) [address] [place] [address])(Sco tt [employer] [employer] Tm Blue) TELE CONSULT [id number] Notes Entered by: ANTHONY PAZ 20 Jun 2020 1622 ------- ------- ------- ------- -- F/U Lab results ANTHONY PAZ 06/20 Released to [facility] [address] [place] [address])(S cott [employer] [employer] Tm Blue) [address] [place] [address])(Sco tt [employer] [facility] [employer] Tm Blue) TELE CONSULT [id number] 1 Notes Entered by: VERONICA IGLESIAS 09 Jul 2020 1225 ------- ------- ------- ------- -- Referra l Request / Yvette [phone] ANTHONY PAZ 07/09 Released to [facility] [address] [place], [place] [address]B ([facility] Tm Blue) [address] [place] [address] [facility] [employer] ([facility])(Sco tt [employer] [facility] [employer] Tm Blue) TELE CONSULT [id number] ANTHONY PAZ Edgard 08/06 Released to [facility] [address] [place] [address] [facility] [employer] ([facility])(S cott [employer] [facility] [employer] Tm Blue) [address] [place] [address] [facility] [employer] ([facility])(Sco tt [employer] [employer] Tm Blue) OUTPATIENT [id number] F2F - f/u on labs, GRACE SERENA M 09/04 Released w/o Limitations [address] [place] [address] [facility] [employer] ([facility])(S [facility] Tm Blue) Procedures Combined list of: 1) Procedures from Department of Veterans Affairs facilities going back up to thelast 18 months, not all VA non-surgical procedures are included; 2) All procedures from the Department of Defense facilities. Procedure Procedure Type Code Date Perfomer Comments [facility] e TELE ASSESS & MGT SRV [...] NXT 24H/SOON APT; 11-20 MIN MED DIS [facility] ELECTROCARDIOGRAM, ROUTINE ECG WITH AT LEAST 12 LEADS; WITH INTERPRETATION AND REPORT DoD TELE ASSESS & MGT SRV PROV QUAL NONPHYS HLTH CARE PRO TO EST PAT,PARENT,GUARD NOT ORIG REL ASSESS & MGT SRV PROV W/IN PREV 7 DAYS NOR LEAD ASSESS & MGT SRV/PX W/IN NXT 24 HR/SOON APT;5-10 MIN MED DIS [facility] BRIEF EMOTIONAL/BEHAVIORA L ASSESSMENT (EG, DEPRESSION INVENTORY, ATTENTION-DEFICIT/H YPERACTIVITY DISORDER [ADHD] SCALE), WITH SCORING AND DOCUMENTATION, PER STANDARDIZED INSTRUMENT [facility] DISEASE MANAGEMENT PROGRAM, FOLLOW-UP/REASSESSM ENT 018 DoD ONLINE ASSESS &MANAG SERV PROVIDE,A QUAL NONPHYS HCP TO AN ESTABLISHED PAT/GUARDIAN,NOT ORIGINAT FRM RELAT ASSESS &MANAG SERV PROVIDE W/IN THE PREV 7 DAYS,USE THE milabent/SIMILAR Explorra COMM NETWORK 018 DoD TELE ASSESS & MGT SRV PROV QUAL NONPHYS HLTH CARE PRO TO EST PAT,PARENT,GUARD NOT ORIG REL ASSESS & MGT SRV PROV W/IN PREV 7 DAYS NOR LEAD ASSESS & MGT SRV/PX W/IN NXT 24 HR/SOON APT;5-10 MIN MED DIS 018 DoD ONLINE ASSESS &MANAG SERV PROVIDE,A QUAL NONPHYS HCP TO AN ESTABLISHED PAT/GUARDIAN,NOT ORIGINAT FRM RELAT ASSESS &MANAG SERV PROVIDE W/IN THE PREV 7 DAYS,USE THE milabent/SIMILAR Explorra COMM NETWORK 018 DoD TELE ASSESS & MGT SRV PROV QUAL NONPHYS HLTH CARE PRO TO EST PAT,PARENT,GUARD NOT ORIG REL ASSESS & MGT SRV PROV W/IN PREV 7 DAYS NOR LEAD ASSESS & MGT SRV/PX W/IN NXT 24 HR/SOON APT;5-10 MIN MED DIS 018 [facility] DEBRIDEMENT, OPEN WOUND, INCL TOP APPLICAT, WOUND ASSESSMENT, USE OF A WHIRLPOOL, WHEN PERFORMED AND INSTRUCTION(S) FOR ONGOING CARE, PER SESSION, TOTAL WOUND(S) SURFACE AREA; FIRST 20 SQ CM OR LESS 017 [facility] INCISION AND DRAINAGE OF ABSCESS (EG, CARBUNCLE, [...] REMOVAL IMPACTED CERUMEN REQUIRING INSTRUMENTATION, UNILATERAL 008 DoD ELECTROCARDIOGRAM, ROUTINE ECG WITH AT LEAST 12 LEADS; WITH INTERPRETATION AND REPORT 008 [facility] IMMUNIZATION ADMINISTRATION (INCLUDES PERCUTANEOUS, INTRADERMAL, SUBCUTANEOUS, OR INTRAMUSCULAR INJECTIONS); EACH ADDITIONAL VACCINE (SINGLE OR COMBINATION VACCINE/TOXOID) 007 DoD OSTEOPATHIC MANIPULATIVE TREATMENT (OMT); 3-4 BODY REGIONS INVOLVED 006 [facility] SCREENING PAPANICOLAOU SMEAR; OBTAINING, PREPARING AND CONVEYANCE OF CERVICAL OR VAGINAL SMEAR TO LABORATORY 006 DoD REMOVAL IMPACTED CERUMEN REQUIRING INSTRUMENTATION, UNILATERAL 005 [facility] SCREENING PAPANICOLAOU SMEAR, CERVICAL OR VAGINAL, UP TO THREE SMEARS, REQUIRING INTERPRETATION BY PHYSICIAN 004 DoD LAPAROSCOPY 993 [facility] APPENDECTOMY 993 [facility] Disease management program, follow-up/marquita e ment 018 NINI GORMAN [facility] Internet Med Svc Qual Nonphys Healthcare Prof Estab Patient Internet Med Svc Qual Nonphys Healthcare Prof Estab Patient [phone] KIKO MAI [facility] Non-Physician Phone Call To Patient/Provider Brief (5-10min) Non-Physician Phone Call To Patient/Provider Brief (5-10min) [phone] ANIYAH DIAZ [facility] Internet Med Svc Qual Nonphys Healthcare Prof Estab Patient Internet Med Svc Qual Nonphys Healthcare Prof Estab Patient [phone] EDOUARD LEIJA [facility] Non-Physician Phone Call To Patient/Provider Brief (5-10min) Non-Physician Phone Call To Patient/Provider Brief (5-10min) [phone] ANIYAH DIAZ [facility] Wound Care Debridement Selective (Up To 20 square cm) Wound Care Debridement Selective (Up To 20 square cm) [phone] ROSE MARIE GARDUNO [facility] Incision And Drainage Of Skin Absce Incision And Drainage Of Skin Abscess [phone] BLADIMIR RODRIGUEZ [facility] Collection of microorganisms for culture and sensitivity 017 KIKO PRATT [facility] Non-Physician Phone Call To Pt/Provider Intermed (11-20 min) Non-Physician Phone Call To Pt/Provider Intermed (11-20 min) [phone] BRY XAVIER [facility] Non-Physician Phone Call To Patient/Provider Brief (5-10min) Non-Physician Phone Call To Patient/Provider Brief (5-10min) [phone] WILLIAN ABREU Non-Physician Phone Call To Patient/Provider Brief (5-10min) Non-Physician Phone Call To Patient/Provider Brief (5-10min) [id number] ANIYAH DIAZ [facility] Non-Physician Phone Call To Patient/Provider Brief (5-10min) Non-Physician Phone Call To Patient/Provider Brief (5-10min) [phone] MARYAM DAWSON [facility] Non-Physician Phone Call To Patient/Provider Brief (5-10min) Non-Physician Phone Call To Patient/Provider Brief (5-10min) [phone] TRUMAN SU [facility] Non-Physician Phone Call To Patient/Provider Brief (5-10min) Non-Physician Phone Call To Patient/Provider Brief (5-10min) [phone] TRUMAN SU Non-Physician Phone Call To Patient/Provider Brief (5-10min) Non-Physician Phone Call To Patient/Provider Brief (5-10min) [phone] JULISSA WAYNE [facility] Non-Physician Phone Call To Patient/Provider Brief (5-10min) Non-Physician Phone Call To Patient/Provider Brief (5-10min) [phone] JULISSA WAYNE [facility] Non-Physician Phone Call To Patient/Provider Brief (5-10min) Non-Physician Phone Call To Patient/Provider Brief (5-10min) [phone] WENDY PARKER [facility] Screening papanicolaou smear; obtaining, preparing and conveyance of cervical or vaginal smear to laboratory 015 SHOLA ROJAS [facility] Incision And Drainage Of Skin Absce Incision And Drainage Of Skin Abscess [phone] ANDRIA MATHIS 1/2cm incision to relieve pressure and purulence. Consented and tolerated well. 1cc lidocaine used to anesthetize area. Less than ml ebl. 1/2cc purulent drainage and addtn'l ml of serous fluid. Cx taken prior to this visit so not sent. Tolerated well. Hemostatic. Gauze applied with sterigel. [facility] Non-Physician Phone Call To Patient/Provider Brief (5-10min) Non-Physician Phone Call To Patient/Provider Brief (5-10min) [phone] JULISSA WAYNE Corticosteroids Injection Intrabursal Corticosteroids Injection Intrabursal [phone] MODESTO SEYMOUR [facility] Incision And Drainage Of Absce Thoracic Spine Incision And Drainage Of Abscess Thoracic Spine [phone] KALIN SELLERS [facility] Non-Physician Phone Call To Patient/Provider Brief (5-10min) Non-Physician Phone Call To Patient/Provider Brief (5-10min) [phone] JULISSA WAYNE Non-Physician Phone Call To Patient/Provider Brief (5-10min) Non-Physician Phone Call To Patient/Provider Brief (5-10min) [phone] JULISSA WAYNE [facility] Non-Physician Phone Call To Patient/Provider Brief (5-10min) Non-Physician Phone Call To Patient/Provider Brief (5-10min) [phone] WILDER MONZON Lana [facility] Non-Physician Phone Call To Patient/Provider Brief (5-10min) Non-Physician Phone Call To Patient/Provider Brief (5-10min) [id number] [phone] JULISSA WAYNE Non-Physician Phone Call To Patient/Provider Brief (5-10min) Non-Physician Phone Call To Patient/Provider Brief (5-10min) [phone] JULISSA WAYNE [facility] Skin Test Anergy Tuberculin Intradermal Skin Test Anergy Tuberculin Intradermal [phone] YOLANDA BROWN [facility] Immunization Administration One Vaccine Immunization Administration One Vaccine [phone] YOLANDA BROWN [facility] Tdap Vaccine Seven Years Of Age And Above Tdap Vaccine Seven Years Of Age And Above [phone] YOLANDA BROWN Non-Physician Phone Call To Patient/Provider Brief (5-10min) Non-Physician Phone Call To Patient/Provider Brief (5-10min) [phone] JULISSA WAYNE Influenza Split Virus Vaccine Age 3+ Years Intramuscular 009 DAVID WYMAN [facility] Immunization Administration Each Additional Vaccine 009 DAVID WYMAN Hepatitis A And Hepatitis B (Intramuscular Use) Adult Dosage Hepatitis A And Hepatitis B (Intramuscular Use) Adult Dosage 89625 009 DAVID WYMAN [facility] Immunization Administration One Vaccine Immunization Administration One Vaccine 74539 009 DAVID WYMAN [facility] Cerumen Removal Right Ear Irrigation Incomplete 008 BRANDT BRAVO CPT [facility] ECG 12-Lead ECG 12-Lead [phone] LUISA HARRIS [facility] Skin Test Anergy Tuberculin Intradermal Skin Test Anergy Tuberculin Intradermal 28193 007 ADRIANA MONTANA [facility] Immunization Administration Each Additional Vaccine 007 ADRIANA MONTANA [facility] Hepatitis A And Hepatitis B (Intramuscular Use) Adult Dosage Hepatitis A And Hepatitis B (Intramuscular Use) Adult Dosage 28295 007 ADRIANA MONTANA [facility] Immunization Administration One Vaccine Immunization Administration One Vaccine 75076 007 ADRIANA MONTANA [facility] Osteopathic Manip Treatment (OMT) 3-4 Body Regions Involved Osteopathic Manip Treatment (OMT) 3-4 Body Regions Involved 83438 006 SHERWIN SEO [facility] Screening papanicolaou smear; obtaining, preparing and conveyance of cervical or vaginal smear to laboratory 006 REUBEN MOSES [facility] Cerumen Removal 005 MICHAEL URRUTIA [facility] Non-Physician Phone Call To Patient/Provider Brief (5-10min) Non-Physician Phone Call To Patient/Provider Brief (5-10min) 37416 PAULINE GARCIA [facility] ECG 12-Lead With Interpretation And Report ECG 12-Lead With Interpretation And Report [id number] ANTHONY PAZ [facility] Non-Physician Phone Call To Pt/Provider Intermed (11-20 min) Non-Physician Phone Call To Pt/Provider Intermed (11-20 min) 43844 CHARITY SERVIN [facility] Social History Combined list of available smoking, tobacco, and other social history from Department of Defense and Veterans Affairs facilities. Social History Type Response Date Comment Sourc e This section is an empty social history section. DoD Advance Directives List of completed, amended, or rescinded Advance Directives on record at Department of Veterans Affairs facilities. An actual copy of the Directive is not included. Date Advance Directive Provider Source 08/16/1995 ADVANCE DIRECTIVE ALEXANDER MADDEN [facility]
--- OUTSIDE RECORDS SUMMARY | 2024-11-02 07:01 | XMS_ITS ---
Author Organization [facility] Care Team Providers Care Mophead Sewer Name Role Phone Ramírez Gibson Unavailable Unavailable Allergies and adverse reactions Code CodeSystem Substance Reaction Severity StartDate Concern Status 272299975 SNOMED CT Penicillins Unknown 04/05/2020 activ e 7454 RXNORM Nitrofurantoin Unknown 04/05/2020 active Macrodantin Unknown 04/05/2020 active Care Team Name Role Address Phone Organization Dates Ramírez Gibson PCP [address], [place], [address], [place] (Office): [facility] 04/05/2020 - 06/07/2020 Immunizations Immunization Status Vaccine Details Vaccine Code CodeSystem Date Notes TB 2 Step Mantoux Skin Test completed tuberculin skin test; unspecified formulation lotNumber: [id number] expiry: 05/12/2020 Mfg: Par oharmaceuctical Given 0.1 ml Right Forearm intradermally Step 1 of Multi-step with next step required 98 CVX created date: 04/21/2020 consent date: 04/20/2020 administere d date: 04/21/2020 Mental Status Section Date Assessment Total Score Description 06/07/2020 BIMS 15 cognitively int act CAM 0 No delirium ind icated PHQ-9 02 minimal depress ion 04/22/2020 BIMS 15 cognitively int act CAM 0 No delirium ind icated PHQ-9 02 minimal depress ion Problems Problem # Description Date of onset Resolved Date Code CodeSystem Concern Status 1 DYSPHAGIA, PHARYNGOESOPHAGEAL PHASE [address] active 2 ESSENTIAL (PRIMARY) HYPERTENSION [address] active 3 GASTRO-ESOPHAGEAL REFLUX DISEASE WITHOUT ESOPHAGITIS [address] active 4 HYPERLIPIDEMIA, UNSPECIFIED [address] active [address] active 6 MAJOR DEPRESSIVE DISORDER, SINGLE EPISODE, UNSPECIFIED [address] active 7 WEAK[address] active Reason for Referral No Reasons for Referral Entered Social History Social History Observation Description Start Date End Date Code Code System Current Smoking Status Tobacco smoking consumption unknown 226810583 SNOMED CT Sex Assigned At Female 1955 24803-[address] [facility] Gender Identity Vital Signs Code Code System Vitals Name Values and Units Timing Information 17993-[address] [facility] Pain Level Value=0.0 06/07/2020 8867-[address] [facility] Heart rate Value=69.0 Units=/min 8310-[address] [facility] Body Temperature Value=97.8 Units= F 06/07/2020 28619-[address] [facility] O2 % BldC Oximetry Value=99.0 Units= % 06/07/2020 9279-[address] [facility] Respiratory Rate Value=18.0 Units=/m in 06/07/2020 8462-[address] [facility] Blood Pressure-Diastolic Value=65 Un its=mmHg 06/07/2020 8480-[address] [facility] Blood Pressure-Systolic Gpcin=086 Un its=mmHg 06/07/2020 48584-[address] [facility] Weight Pnmav=008.0 Units=Lbs 03/2020 8302-[address] [facility] Height Value=62.0 Units=Inches 04/06/2020
--- OUTSIDE RECORDS SUMMARY | 2024-11-02 07:02 | XMS_ITS | Clinical Summary ---
Author Organization [facility] Address [facility] [place] [address] Care Team Providers Care Senior Partner Name Role Phone Kirit Page Primary Care Provider [phone] Allergies Active Allergy Reactions Criticality Noted Date [...] Comments Blood Pressure 110/70 03/27/2020 1:57 PM RECREATIONAL AIDE Pulse 85 03/27/2020 1:57 PM RECREATIONAL AIDE Temperature 36.4 C (97.6 F) 03/27/2020 11:20 AM RECREATIONAL AIDE Respiratory Rate 17 03/27/2020 1:57 PM RECREATIONAL AIDE Oxygen Saturation 100% 03/27/2020 1:57 PM RECREATIONAL AIDE Inhaled Oxygen Concentration - - Weight 65.8 kg (145 lb) 03/27/2020 11:20 AM RECREATIONAL AIDE Height 157.5 cm (5' 2) 03/27/2020 11:20 AM RECREATIONAL AIDE Body Mass Index 26.52 03/27/2020 11:20 AM RECREATIONAL AIDE Plan of Treatment Health Maintenance Due Date Last Done Comments Colorectal Cancer Screening Colonoscopy (10 Years) 1955 Hepatitis C 12/05/1973 DTaP, Tdap and Td Vaccines ( 1 - Tdap) 12/05/1974 Mammogram Screening 1995 Pneumococcal Vaccine: 50+ Ye ars (1 of 1 - PCV) 12/05/2005 Zoster Vaccines (1 of 2) 12/05/2005 Dexa Scan (General) 12/05/2020 COVID-19 Vaccine (2023-2 5 season) 2023 RSV Immunization or 60+ Years (1 [...] Documents on File Type Date Recorded Patient Patient Care Specialist Expl anation Power of Counter Attendant 03/12/2020 8:41 AM POA FOR HEALTHCARE Care Teams Senior Partner Relationship Specialty Start Date End Date Kirit Page DO PCP - General FAMILY PRACTICE 03/01/20
[2024-11-02 07:10] LABS: Hematocrit 39.3 % (35.0-42.0); Hemoglobin 12.6 g/dL (11.7-13.8); Mean Corpuscular HGB Conc 32.1 g/dL (32-36); Mean Corpuscular Hemoglobin 32.9 pg (27.0-31.0); Mean Corpuscular Volume 102.6 fL (78.0-102.0); Platelet Count Result 268 K/mm3 (150-420); Red Blood Count 3.83 M/mm3 (4.20-5.40); White Blood Count 5.9 K/mm3 (4.8-10.8)
[2024-11-02 07:12] LABS: Add Urine Microscopic? YES; Appearance Urine Clear (Clear); Glucose Urine UA Negative (Negative); Leukocyte Esterase Ur 2+ (Negative); Nitrate Urine Negative (Negative); Specific Grav Ur 1.015 (1.010-1.020)
[2024-11-02 08:23] LABS: Alanine Aminotransferase 26 U/L (6-35); Albumin Level 4.7 g/dL (3.5-5.1); Alkaline Phosphatase 72 U/L (38-126); Anion Gap 11 mmol/L (4-12); Aspartate Amino Transferase 44 U/L (14-36); Bilirubin,Total 1.1 mg/dL (0.2-1.3); Blood Urea Nitrogen 16 mg/dL (7-17); Calcium 10.2 mg/dL (8.4-10.2); Carbon Dioxide 25 mmol/L (22-30); Chloride 105 mmol/L (98-107); Cholesterol 195 mg/dL (0-200); Estimated Glomerular Filt Rate 50; Glucose 105 mg/dL (65-110); HDL Direct 84 mg/dL; Osmolality Calculated 293 mOsm/kg (285-295); Potassium 4.7 mmol/L (3.4-5.0); Sodium 141 mmol/L (137-145); Total Protein 7.3 g/dL (6.3-8.2); Triglycerides 200 mg/dL (<150)
[2024-11-02 09:08] LABS: Thyroid Stimulating Hormone 2.080 uIU/mL (0.465-4.680)
[2024-11-06 18:08] LABS: Phosphatidylethanol (PEth) Negative (.)
== END 2024-11-02 06:57 | disposition home or self-care (01) ==
LOC: CHSLAB 06:58
PROVIDERS: PCP Internal Medicine; Visit Provider Internal Medicine
DX: I10 Essential (primary) hypertension (principal); R79.89 Other specified abnormal findings of blood chemistry; F10.11 Alcohol abuse, in remission
CPT/HCPCS: 36415; 80053; 80061; 80321; 81001; 84443; 85027; G0480

== ENCOUNTER 2024-12-26 07:49 | Outpatient (CLI) | payer MEDICARE, OTHER, SELFPAY ==
--- NOTE | ~2024-12-26 | US_ITS ---
US abdomen limited Indication: Abnormal LFTs Comparison: None Technique: Obrien-scale and color Doppler images were obtained. Findings: LIVER: Liver measures 13 cm. . GALLBLADDER/BILIARY: Post cholecystectomy. CBD 8 mm. Dudley sign negative. PANCREAS: Pancreas limited by bowel gas. Right Kidney: Right kidney was not imaged. Impression: Visualized liver appears unremarkable Reviewed, dictated and finalized at location P. Impression: Visualized liver appears unremarkable
== END 2024-12-26 07:50 | disposition home or self-care (01) ==
LOC: CHSIMG 07:50
PROVIDERS: PCP Internal Medicine; Visit Provider Internal Medicine
DX: R94.5 Abnormal results of liver function studies (principal)
CPT/HCPCS: 76705